=== PATIENT | female | born 1950 | race Caucasian/White ===

== ENCOUNTER 2016-08-18 09:01 | Inpatient (IN) | payer MEDICAID ==
[2016-08-18] MEDS ORDERED: FUROSEMIDE 10 MG/ML VIAL IV ONE ×2 (09:09→09:44)
[2016-08-18] MEDS ORDERED: FUROSEMIDE 10 MG/ML VIAL ONE (09:13)
--- OUTSIDE RECORDS SUMMARY | 2016-08-18 09:24 | XMS REPORT | Continuity of Care Document ---
:1950 Author Organization [facility] ([facility]) Address [address] [place] [address] Phone [phone] Care Team Providers Name Role Phone LidadelioIrina mederoslexis Primary Care Provider [phone] Source Comments This disclosure is being made pursuant to the Care Everywhere program, applicable federal and state laws, and may not contain all informaitonavailable regarding this patient.[facility] ([facility]) Active Allergies and Adverse Reactions Allergen Noted Date Severity Reactions Comments Amoxicillin 04/10/2016 Nausea & Vomiting Penicillin 01/22/2016 Urticaria (Hives) Current Medications Prescription Sig. Disp. Refills Start End Date Status Date albuterol 90 Use 2 Puffs by Active mcg/Actuation inhalation every 6 inhaler hours as needed. atorvastatin 20 mg Take 20 mg by Active tablet mouth every evening. clopidogrel 75 mg Take 75 mg by Active tablet mouth daily. Last dose of plavix 07/16 levothyroxine 75 Take 75 mcg by Active mcg tablet mouth every morning before breakfast. albuterol 2 mg Take 2 mg by mouth Active tablet 3 times daily. acetaminophen 325 Take 325 mg by Active mg tablet mouth every 4 hours as needed. docusate 100 mg Take 100 mg by Active capsule mouth 2 times daily as needed. amiodarone 200 mg Take 2 tablets 120 tablet 1 Active tablet (400 mg) twice 7 daily x 10 days, then take 1 tablet (200 mg) daily thereafter. digoxin 125 mcg Take 1/2 tablet 15 tablet 1 Active tablet (62.5 mcg total) 7 by mouth daily. furosemide 40 mg Take 1 tablet (40 60 tablet 1 Active tablet mg total) by mouth 7 2 times daily. HYDROcodone-acetami Take 1 tablet by 60 tablet 0 Active nophen 5-325 mg per mouth every 6 7 tablet hours as needed for pain. metoPROLol tartrate Take 1/4 tablet 60 tablet 1 Active 25 mg tablet (6.25 mg total) by 7 mouth every 12 hours. sennosides 8.6 mg Take 1 tablet (8.6 60 tablet 1 Active tablet mg total) by mouth 7 2 times daily as needed. sildenafil 20 mg Take 1/4 tablet (5 45 tablet 3 Active tablet mg total) by mouth 7 3 times daily. ALPRAZolam 0.25 mg Take 1 tablet 60 tablet 0 Active tablet (0.25 mg total) by 7 mouth 2 times daily as needed. warfarin 2 mg Take 1 tablet (2 30 tablet 1 Active tablet mg total) by mouth 7 daily. INV clopidogrel 75 Active mg or placebo 7 (POINT STUDY) tablet ALPRAZolam 0.25 mg Active tablet 7 levothyroxine Active (TIROSINT) 75 mcg 7 capsule enoxaparin Inject 120 mg 4 mL 0 Active (LOVENOX) 120 subcutaneously 7 mg/0.8 mL injection daily. Your first syringe injection will be 08/30/2016 and your last injection will be 09/03/2016. aspirin 325 mg Take 325 mg by 08/03/19 Discontinued tablet mouth daily. 17 atenolol 25 mg Take 25 mg by 08/03/19 Discontinued tablet mouth daily. 17 furosemide 40 mg Take 80 mg by 08/03/19 Discontinued tablet mouth daily. 17 cyclobenzaprine 5 Take 5 mg by mouth 08/03/19 Discontinued mg tablet 3 times daily as 17 needed. potassium chloride Take 10 mEq by 08/03/19 Discontinued 10 mEq XR tablet mouth daily. 17 ALPRAZolam 0.25 mg Take 0.25 mg by 08/03/19 Discontinued tablet mouth 3 times 17 daily. lisinopril 40 mg Take 40 mg by 08/03/19 Discontinued tablet mouth daily. 17 sildenafil 20 mg Take 1/2 tablet 45 tablet 3 08/03/19 Discontinued tablet (10 mg total) by 7 17 mouth 3 times daily. enoxaparin Inject 120 mg 4 mL 0 08/16/19 Discontinued (LOVENOX) 120 subcutaneously 7 17 mg/0.8 mL injection daily. Your last syringe injection will be 09/03/2016. Active Problems Patient Care Coordination Note This is a patient with significant moderate to severe MR, tricuspid regurgitation, ischemic cardiomyopathy, and asymptomatic carotid stenosis who underwent R CEA complicated by post-op hematoma. She is doing exceptionally well this morning, and is stable for discharge to home on dual anti-platelet therapy. She complained of some shoulder pain this morning, but cardiac workup was negative, and e reports that it is identical to long-standing known rotator cuff pain. She shows no neurologic changes off pressors while amublating around the unit Problem Noted Date S/P MVR (mitral valve replacement) 08/02/2016 Overview: 07/22/16 1. Coronary artery bypass grafting x 1 with SVG to PDA. 2. Mitral valve replacement with 29 Epic tissue valve. 3. Tricuspid valve repair with 28 tricuspid Physio ring. 4. Endoscopic saphenous vein harvest of the left great saphenous vein. S/P CABG x 1 08/02/2016 Overview: 07/22/16 1. Coronary artery bypass grafting x 1 with SVG to PDA. 2. Mitral valve replacement with 29 Epic tissue valve. 3. Tricuspid valve repair with 28 tricuspid Physio ring. 4. Endoscopic saphenous vein harvest of the left great saphenous vein. Postoperative pain 08/02/2016 Overview: Lortab prn Acute combined systolic and diastolic congestive heart failure 08/02/2016 Overview: - OR 07/22/16; RENAN intraoperatively showed significant RV and LV dysfunction. LV EF estimated to be around 35% with multiple regions of akinesis, including apex , septum, and inferior wall. Along with e vidence of pulmonary hypertension and right heart strain. 07/23: Remained intubated overnight due to high pressor requirements. Weaned off NE, and decreased vasopressin. CI index improved. 07/24: Extubated yesterday afternoon and had increasing PA pressures through the day to max of systolic PA75. Dobutamine was decreased during the day and restarted at night for low cardiac index 1.98. P t continues to have high ionotrope requirements. Bedside echo shows hypokinetic LV. Pt received 1uPRBC for Hgb 6.9 Hematoma complicating a procedure 04/11/2016 Last Assessment & Plan: -s/p surgical decompression; doing fine now Hypomagnesemia 04/11/2016 Overview: Monitor and replace as indicated Carotid artery stenosis, asymptomatic 04/10/2016 Last Assessment & Plan: -s/p CEA with need for take-back due to bleeding -normotensive BP goals -has significant stenosis bilaterally, so reliant on collaterals to a large degree Acute blood loss anemia 04/10/2016 Overview: 07/23: Low cardiac index 1.98. Pt continues to have high ionotrope requirements. Bedside echo shows hypokinetic LV. Pt received 1uPRBC for Hgb 6.9 H/H has been followed closely. No additional RBCs transfusions required; managing with diuresis H/H at discharge was 8.3 and 26% The patient has tolerates room air; good oxygen saturations Last Assessment & Plan: -no current indication for transfusion Hyperkalemia 04/10/2016 Last Assessment & Plan: -resolved Hyponatremia 04/10/2016 Overview: Labs showing hyponatremia with Sodium 124. The patient has been diuresed aggressively with some improvement. She has had daily BMP Last Assessment & Plan: -chronic; stable Discharge planning issues 04/10/2016 Last Assessment & Plan: -full code -familhy updated at bedside -to home today Mitral regurgitation 03/14/2016 Overview: 07/22/16 1. Coronary artery bypass grafting x 1 with SVG to PDA. 2. Mitral valve replacement with 29 Epic tissue valve. 3. Tricuspid valve repair with 28 tricuspid Physio ring. 4. Endoscopic saphenous vein harvest of the left great saphenous vein. Last Assessment & Plan: -hemodynamic principles include keeping heart relatively fast and afterload low (eg, theoretically phenylephrine is not he best pressor agent for her, but we are limited by protocol what we can run pe ripherally), although not clear that regurgitaiton is truly severe. Being evaluated for possible valve replacement Tricuspid regurgitation 03/14/2016 Overview: 07/22/16 1. Coronary artery bypass grafting x 1 with SVG to PDA. 2. Mitral valve replacement with 29 Epic tissue valve. 3. Tricuspid valve repair with 28 tricuspid Physio ring. 4. Endoscopic saphenous vein harvest of the left great saphenous vein. CAD (coronary artery disease) 03/14/2016 Overview: 07/22/16 1. Coronary artery bypass grafting x 1 with SVG to PDA. 2. Mitral valve replacement with 29 Epic tissue valve. 3. Tricuspid valve repair with 28 tricuspid Physio ring. 4. Endoscopic saphenous vein harvest of the left great saphenous vein. Last Assessment & Plan: -ASA + plavix Hypothyroidism 03/14/2016 Overview: Endocrine following; restarted Synthroid TSH and free T4 were checked and adjustments were made Plan to recheck as outpatient in 1-2 months Last Assessment & Plan: -continue home levothyroxine Hypertension 03/14/2016 Overview: Monitoring Last Assessment & Plan: -hold home antihypertensives acutely while shooting for adequate cerebral perfusion. -overall goal with her MR is relatively fast heart rate with low afterload Hyperlipidemia 03/14/2016 Overview: Restarted statin Last Assessment & Plan: -continue home statin Shortness of breath 03/14/2016 PVD (peripheral vascular disease) 03/14/2016 GERD (gastroesophageal reflux disease) 03/14/2016 Overview: Restarted PPI Last Assessment & Plan: -no meds at home; does not need a PPI here Renal insufficiency 03/14/2016 Last Assessment & Plan: -stable. NTD acutely Pulmonary hypertension 03/14/2016 Overview: 07/23: Remained intubated overnight due to high pressor requirements. Weaned off NE, and decreased vasopressin. CI index improved. 07/24: Extubated yesterday afternoon and had increasing PA pressures through the day to max of systolic PA75. Dobutamine was decreased during the day and restarted at night for low cardiac index 1.98. P t continues to have high ionotrope requirements. Bedside echo shows hypokinetic LV. Pt received 1uPRBC for Hgb 6.9 - Still on NC. PA pressures in mid 40 with epo. Wean epo to off. Started sildenafil and increased to 10 -Still on epi, vaso, milrinone . Continue to wean vaso. Will leave inotropes on because of poor function. Still being AV paced at 110. On Vaso. Start midodrine and wean vaso. Continue epi and milrin one. If she tolerats being off epo, can start milrinone wean tomorrow - On lasix infusion. Diuresing well.Goal -1000 - 2000 mlml -Started digoxin for positive inotropy.Dig level 0.8 -Follow lactate, Svo2 and cardiac indices Last Assessment & Plan: -NTD acutely CHF (congestive heart failure) 03/14/2016 Last Assessment & Plan: -most recent EF by echo ~50%, but inpatient showed a decrease again to 33% while on phenylephrine. Unclear whether either recent echo misestimated EF because of her MR (eg, over-estimated EF with greater degree of MR) Former tobacco use 03/14/2016 Resolved Problems Problem Noted Date Resolved Date Lactic acidosis 04/10/2016 04/12/2016 Last Assessment & Plan: -likely related to hgih-dose pressors intra-ioperatively. resolved Most Recent Encounters Date Type Specialty Providers Description 09/04/2016 [facility] General Surgery Kareem, Encounter MD Ricky 08/15/2016 [facility], Dx: Wound infection Encounter MD Ricky after surgery, initial encounter 08/15/2016 [facility] Heart [facility], Chief Comp: Patient Encounter MD Ricky Reported Reason For Visit 08/15/2016 [facility] Heart [facility], Chief Comp: Patient Encounter MD Ricky Reported Reason For Visit 08/15/2016 Office Visit Srg Vascular [facility], Dx: Wound infection MD Ricky after surgery, initial encounter (Primary Dx) 08/15/2016 Ancillary Orders [facility] Vascular Barb, Dx: Wound infection Marques Almazan DDS after surgery, initial encounter (Primary Dx) 08/02/2016 Pharmacy Visit 08/02/2016 Telephone [place], Chief Comp: Marco Byrd CPhT Prior Authorization 08/01/2016 [facility] Neurology Jamaica Gonzalez Chief Comp: Patient Encounter MD Sherman Reported Reason For Visit 08/01/2016 Ophth Exam Ophthalmology - Loyd Soler MD 07/22/2016 [facility] [place], Chief Comp: Patient Encounter MD Shannon Reported Reason For Visit 07/22/2016 Surgery General Surgery [place], MITRAL and TRICUSPID MD Shannon VALVE REPLACEMENT REPAIR 07/19/2016 [facility] [place], Chief Comp: Patient Encounter MD Shannon Reported Reason For Visit 07/19/2016 [facility] Cardiology Ramiro Martinez Chief Comp: Patient Encounter MD Richard Reported Reason For Visit 07/19/2016 Orders/Notes Heart and Vascular Shannon Live MD 07/09/2016 Office Visit [facility] [place], Dx: Mitral valve MD Shannon disorder 07/09/2016 [facility] Anesthesiology Default, Other Dx: Hematoma Encounter Billg - Defo complicating a [place], procedure (Primary MD Shannon Dx) 07/09/2016 [facility] Heart and Vascular Jeni, Chief Comp: Patient Encounter MD Casi Reported Reason For Visit 07/09/2016 [facility] Jeni, Dx: Rheumatic mitral Encounter MD Casi regurgitation 07/09/2016 [facility] Heart [facility] Jeni, Dx: Rheumatic mitral Encounter MD Casi regurgitation 07/09/2016 [facility] Heart and Vascular Default, Other Chief Comp: Patient Encounter Billg - Defo Reported Reason For Kareem, Visit MD Ricky 07/09/2016 Office Visit Sr Vascular Kareem, Dx: 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 (Primary Dx) 07/05/2016 Orders/Notes Heart and Vascular Petra Swann, Dx: Mitral valve APNS disorder (Primary Dx) 07/04/2016 Office Visit Sr [facility] Kareem, Dx: Carotid artery MD Ricky stenosis, asymptomatic, right (Primary Dx) 07/04/2016 [facility] Radiology Joaquín Enciso, Dx: Pre-procedure Encounter lab exam (Primary Dx) 07/04/2016 Office Visit Pathology Kareem, Dx: Pre-procedure MD Ricky lab exam [facility] 06/20/2016 [facility], Chief Comp: Patient Encounter MD Ricky Reported Reason For Visit 06/20/2016 [facility] Heart [facility] Vascular Kareem, Dx: Carotid Encounter MD Ricky stenosis, bilateral 06/20/2016 Office Visit [facility]ascular Kareem, Dx: Stenosis of MD Ricky right carotid artery (Primary Dx) 06/07/2016 Office Visit [facility] Dx: Coronary artery MD Shannon disease involving igiugig coronary artery of igiugig heart without angina pectoris (Primary Dx) 06/06/2016 Office Visit Heart and V[facility] [place], Chief Comp: Patient MD Shannon Reported Reason For Visit Social History Tobacco Use Types Packs/Day Years Used Date Former Smoker Quit: 10/06/2015 Smokeless Tobacco: Never Used Tobacco Cessation:Counseling Given: Yes Comments: Alcohol Use Drinks/Week oz/Week Comments No Last Filed Vital Signs Vital Sign Reading Time Taken Blood Pressure 146/70 08/15/2016 10:44 AM CDT Pulse 62 08/15/2016 10:44 AM CDT Temperature 35.8 C (96.4 F) 08/15/2016 10:42 AM CDT Respiratory Rate 18 08/02/2016 3:43 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 [employer] Height 1.6 m (5' 2.99") 07/22/2016 6:12 AM 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 [employer] Weight 77.1 kg (169 lb 15.6 oz) 08/15/2016 10:42 AM CDT Body Mass Index 30.12 08/15/2016 10:42 AM CDT Oxygen Saturation 100% 08/02/2016 3:08 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 [employer] Plan of Care Date Type Specialty Providers Description 09/04/2016 Surgery General Surgery Ricky Serna, Right Neck wound exploration; Possible [address] [place] [address] Reconstruction [phone] (Fax) 09/06/2016 Appointment Heart and Vascular Default, Other Chief Comp: Patient Billg - Defo Reported Reason For [address] [place] [address] [phone] (Fax) 09/06/2016 Appointment Heart and Vascular Default, Other Billg - Defo [address] [place] [address] [phone] (Fax) Chief Comp: Patient Shannon Live MD [address] [place] [address] [phone] (Fax) Reported Reason For Visit 11/07/2016 Appointment Srg Vascular Ricky Serna, Chief Comp: Patient Reported Reason For [address] [place] [address] [phone] (Fax) Health Maintenance Due Date Last Done Comments HCV Screening 1950 Hepatitis B Vaccine (1 of 3 - Primary 1950 Series) Tdap Vaccine 01/06/1963 Td Vaccine 01/06/1970 Pneumococcal Vaccine (1 of 1 - PPSV23) 01/06/1971 Cervical Cancer Screening 01/06/1982 Mammogram 1992 Colonoscopy 01/06/2002 Zoster Vaccine 2012 Influenza Vaccine: Seasonal (#1) 12/25/2015 Lipid Disorder Screening 07/09/2021 07/09/2016, 03/14/2016 Procedures from Last 3 Months Procedure Name Priority Date/Time Associated Diagnosis Comments ABSTRACTED BY Routine 07/25/2016 8:08 Mitral valve disorder 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 S/P mitral valve repair S/P tricuspid valve repair TSG OR CASE Routine 07/23/2016 7:44 Rheumatic mitral Results for this 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 [employer] regurgitation procedure are in the results section. 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 Component Value Range [facility] VASC RIGHT CCA PROX PSV 112 cm/sec [facility] VASC RIGHT CCA PROX PEDV 21 cm/sec [facility] VASC RIGHT CCA MID PSV 89 cm/sec [facility] VASC RIGHT CCA MID PEDV 25 cm/sec [facility] VASC RIGHT CCA DIST PSV 145 cm/sec [facility] VASC RIGHT CCA DIST PEDV 30 cm/sec [facility] VASC RIGHT ICA PROX PSV 698 cm/sec [facility] VASC RIGHT ICA PROX PEDV 264 cm/sec [facility] VASC RIGHT ICA DIST PSV 115 cm/sec [facility] VASC RIGHT ICA DIST PEDV 33 cm/sec [facility] VASC RIGHT ECA PSV 241 cm/sec [facility] VASC RIGHT ECA PEDV 28 cm/sec [facility] VASC RIGHT VERTEBRAL PSV 170 cm/sec [facility] VASC RIGHT VERTEBRAL PEDV 39 cm/sec [facility] VASC RIGHT ICA/CCA 6.23 CHEST- PA& LATERAL (08/02/2016 1:23 PM) Impressions Findings/impression: Normal cardiomediastinal silhouette and pulmonary vasculature. No pulmonary edema. Mild basilar atelectasis is improved from yesterday's exam. There is a trace left-sided pleural effusion. Otherwise, lungs are clear. Stable postsurgical changes of CABG. 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 No pulmonary edema. Mild basilar atelectasis is improved from yesterday's exam. There is a trace left-sided pleural effusion. Otherwise, lungs are clear. Stable postsurgical changes of CABG. BLOOD GLUCOSE, BEDSIDE (08/02/2016 12:25 PM)Only the most recent of76 resultswithin the time period is included. Component Value Range Glucose, Accu-Chek 131(H) 65-99 mg/dL Specimen Blood, capillary PT/INR (PROTHROMBIN TIME/INR) VENOUS (08/02/2016 6:58 AM)Only the most recent of13 resultswithin the time period is included. Component Value Range PT (Prothrombin Time) 21(H) 9-12 secs INR 2.1 <4.0 Specimen Blood MAGNESIUM (08/02/2016 6:58 AM)Only the most recent of21 resultswithin the time period is included. Component Value Range Magnesium 2.1 1.5-2.9 mg/dL Specimen Blood GLUCOSE (08/02/2016 6:58 AM)Only the most recent of3 resultswithin the time period is included. Component Value Range Glucose 109(H)Comment: 65-99 mg/dL The Expert Committee on the Diagnosis and Classification of Diabetes has defined impaired fasting glucose as greater than or equal to 100 mg/dL but less than 126 mg/dL.(Diabetes Care 28 (Suppl 1)S41,2005) Specimen Blood CBC (COMPLETE BLOOD COUNT) (08/02/2016 6:58 AM)Only the most recent of8 resultswithin the time period is included. Component Value Range WBC Count 6.6 3.7-10.5 K/MM3 RBC Count 2.84(L) 4.00-5.20 M/MM3 Hemoglobin 8.3(L) 11.9-15.5 g/dL Hematocrit 26(L) 35-47 % MCV (Mean Corpuscular Volume) 92 82-99 FL MCH (Mean Corpuscular Hemoglobin) 29 25-35 PG MCHC (Mean Corpuscular Hemoglobin Concentration) 32 32-36 % Platelet Count 293 150-400 K/MM3 MPV (Mean Platelet Volume) 9.3(L) 9.4-12.3 FL RBC Dist Width-STD 56.0(H) 36.4-46.3 FL RBC Distrib Width 17.2(H) 9.0-14.5 % Nucleated RBC 0 /100 WBC Specimen Whole Blood CREATININE (08/02/2016 6:58 AM)Only the most recent of2 resultswithin the time period is included. Component Value Range Creatinine 1.2(H)Comment: 0.5-1.0 mg/dL Creatinine switched to enzymatic method on 10/02/2010.GFR equation switched to IDMS-traceable MDRD equation on 10/02/2010. Calculated GFR values are not valid in clinical settings where serum creatinine is changing. Calculated GFR 45(L) >60 mL/min/1.73 m2 Specimen Blood BLOOD UREA NITROGEN (08/02/2016 6:58 AM)Only the most recent of2 resultswithin the time period is included. Component Value Range BUN 17 10-20 mg/dL Specimen Blood CO2 (08/02/2016 6:58 AM)Only the most recent of2 resultswithin the time period is included. Component Value Range CO2 24 22-29 mEq/L Anion Gap 15 8-18 mEq/L Specimen Blood CHLORIDE (08/02/2016 6:58 AM)Only the most recent of2 resultswithin the time period is included. Component Value Range Chloride 91(L) 95-107 mEq/L Specimen Blood POTASSIUM (08/02/2016 6:58 AM)Only the most recent of2 resultswithin the time period is included. Component Value Range Potassium 4.6 3.5-5.0 mEq/L Specimen Blood SODIUM (08/02/2016 6:58 AM)Only the most recent of2 resultswithin the time period is included. Component Value Range Sodium 130(L) 135-145 mEq/L Specimen Blood CT BRAIN WO CONTRAST (11057) (08/01/2016 6:29 PM) Narrative Procedure: CT BRAIN WO CONTRAST (17068) Indication: Vision changes, evaluate for stroke. Technique: Axial CT of the brain without IV contrast. Sagittal and coronal reformations are also provided for review. Comparison: CTA of the head dated 07/04/2016 Findings: There is no evidence of acute large vascular distribution infarct, mass lesion or hemorrhage. The ventricles, cortical sulci and basal cisterns are symmetric and age appropriate. Normal brainstem and posterior fossa. The scalp and calvarium are unremarkable. Impression No acute intracranial findings. If there is continued concern for acute stroke, MRI is more sensitive. This final report is in agreement with the critical and emergent preliminary findings reported by the residential leasing agent x ray consultant. 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 Technique: Axial CT of the brain without IV contrast. Sagittal and coronal reformations are also provided for review. Comparison: CTA of the head dated 07/04/2016 Findings: There is no evidence of acute large vascular distribution infarct, mass lesion or hemorrhage. The ventricles, cortical sulci and basal cisterns are symmetric and age appropriate. Normal brainstem and posterior fossa. The scalp and calvarium are unremarkable. Impression No acute intracranial findings. If there is continued concern for acute stroke, MRI is more sensitive. This final report is in agreement with the critical and emergent preliminary findings reported by the residential leasing agent x ray consultant. MICROSCOPIC URINALYSIS (08/01/2016 12:24 PM)Only the most recent of2 resultswithin the time period is included. Component Value Range White Blood Cells, Urine 1 0-5 /HPF Red Blood Cells, Urine 4(H) 0-2 /HPF Bacteria, Urine Few(A) /HPF Squamous Epithelial Cells, Urine 129(H) <=10 /LPF Hyaline Cast, Urine 1 <=10 /LPF Mucous-Urine Rare None, Rare Specimen Urine URINALYSIS WITH REFLEX CULTURE (08/01/2016 12:24 PM)Only the most recent of2 resultswithin the time period is included. Component Value Range Color, Urine Yellow Straw, Pale Yellow, Yellow, Clear, None Clarity, Urine Clear Clear pH, Urine 5.0 <9.0 Spec [place], Urine 1.005 1.000-1.030 Glucose, Urine Negative Negative Blood, Urine 1+(A) Negative Ketones, Urine Negative Negative Protein, Urine Negative Negative Urobilinogen, Urine Normal Normal Bilirubin, Urine Negative Negative Leukocyte Esterase, Urine Negative Negative Nitrite, Urine Negative Negative Specimen Urine URINALYSIS WITH REFLEXED CULTURE AND MICROSCOPIC EXAM (08/01/2016 12:24 PM)Only the most recent of2 resultswithin the time period is included. Specimen Culture - Urine, Midstream clean catch Narrative The following orders were created for panel order URINALYSIS WITH REFLEXED CULTURE AND MICROSCOPIC EXAM. Procedure Abnormality Status --------- ------ URINALYSIS WITH REFLEX C...[[id number]]AbnormalFinal result MICROSCOPIC URINALYSIS[[id number]] Abnormal Final result URINE CULTURE, REFLEXED[[id number]] Please view results for these tests on the individual orders. POTASSIUM ([facility]ICAL [facility]ARE [facility]) (08/01/2016 10:25 AM)Only the most recent of28 resultswithin the time period is included. Component Value Range Potassium, Whole Blood 4.4Comment: 3.5-5.0 mEq/L Sample run on whole blood.Hemolysis is not measured. Specimen Whole Blood PTT (PARTIAL THROMBOPLASTIN TIME) (08/01/2016 10:25 AM)Only the most recent of11 resultswithin the time period is included. Component Value Range PTT 29 22-31 secs Specimen Blood ECG - EKG 12 LEAD (08/01/2016 7:48 AM)Only the most recent of4 resultswithin the time period is included. Component Value Range ECG SEVERITY - ABNORMAL ECG - VENT. RATE 85 bpm RR 706 ms QRSD INTERVAL 138 ms QT INTERVAL 424 ms QTC INTERVAL 505 ms QRS AXIS 2 degrees T WAVE AXIS 157 degrees REPORT ATRIAL FIBRILLATION [Remains] VENTRICULAR PREMATURE COMPLEX LEFT BUNDLE BRANCH BLOCK [Remains] NO SIGNIFICANT CHANGE Interpreting Physician: LOCO NDIAYE MD CHEST - AP/PA (08/01/2016 4:08 AM)Only the most recent of11 resultswithin the time period is included. Impressions Findings / Impression: Interval removal of Laporte-David catheter. Stable mild prominence of the cardiomediastinal silhouette with normal pulmonary vasculature. No mckenzie pulmonary edema. Mild bibasilar, left greater than right, atelectasis with associated trace pleural effusions. Lungs are otherwise clear. Narrative Procedure: CHEST - AP/PA Technique: Portable AP chest radiograph Comparison: Chest radiograph(s) dated: 07/30/2016. Clinical Indication: Status post CABG, mitral valve repair Procedure Note [place], Incoming Imaging Results - Nica Aug 01, 2016 11:17 AM 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 OPERATOR SINGLE SPINDLE Procedure: CHEST - AP/PA Technique: Portable AP chest radiograph Comparison: Chest radiograph(s) dated: 07/30/2016. Clinical Indication: Status post CABG, mitral valve repair IMPRESSION Findings / Impression: Interval removal of Laporte-David catheter. Stable mild prominence of the cardiomediastinal silhouette with normal pulmonary vasculature. No mckenzie pulmonary edema. Mild bibasilar, left greater than right, atelectasis with associated trace pleural effusions. Lungs are otherwise clear. DIGOXIN DRUG LEVEL (08/01/2016 3:45 AM)Only the most recent of2 resultswithin the time period is included. Component Value Range Digoxin Drug Level 1.08Comment: 0.90-2.00 ng/mL The general therapeutic range for digoxin is 0.5-2.0 ng/mL. However, the optimal therapeutic range for a given patient may differ based on factors such as patient age and indication for therapy. [employer] (ACCF) / [place] [employer] Association (AHA ) 2013 guidelines recommend therapeutic digoxin plasma levels of 0.5-0.9 ng/mL for management of heart failure. For treatme nt of atrial fibrillation, digoxin plasma levels up to 2 ng/mL may be necessary to achieve better ventricular rate control. Digoxin has a narrow therapeutic window, and plasma concentrations greater t [place] 2 ng/mL confer higher risk of adverse effects. Elderly patients are more susceptible to adverse effects and more likely to show toxicity even at plasma levels of 1.4-2.0 ng/mL. Specimen Blood PLATELET COUNT (08/01/2016 3:45 AM)Only the most recent of11 resultswithin the time period is included. Component Value Range Platelet Count 265 150-400 K/MM3 Specimen Whole Blood BASIC METABOLIC PANEL W/ CALCIUM (CHEM 8) (08/01/2016 3:45 AM)Only the most recent of11 resultswithin the time period is included. Component Value Range Sodium 132(L) 135-145 mEq/L Potassium 4.5 3.5-5.0 mEq/L Chloride 91(L) 95-107 mEq/L CO2 23 22-29 mEq/L Anion Gap 18 8-18 mEq/L BUN 17 10-20 mg/dL Creatinine 1.1(H)Comment: 0.5-1.0 mg/dL Creatinine switched to enzymatic method on 10/02/2010.GFR equation switched to IDMS-traceable MDRD equation on 10/02/2010. Calculated GFR values are not valid in clinical settings where serum creatinine is changing. Glucose 113(H)Comment: 65-99 mg/dL The Expert Committee on the Diagnosis and Classification of Diabetes has defined impaired fasting glucose as greater than or equal to 100 mg/dL but less than 126 mg/dL.(Diabetes Care 28 (Suppl 1)S41,2005) Calcium 9.3 8.5-10.5 mg/dL Calculated GFR 50(L) >60 mL/min/1.73 m2 Specimen Blood VENOUS OXYGEN SATURATION ([facility]) (07/31/2016 2:11 PM)Only the most recent of38 resultswithin the time period is included. Component Value Range Venous O2 Saturation 51.7 % Venous Oxyhemoglobin 50.1 % Specimen Whole Blood HEMOGLOBIN& CALCULATED HEMATOCRIT - ([facility]) (07/31/2016 5: 06 AM)Only the most recent of18 resultswithin the time period is included. Component Value Range Hemoglobin - CCL 8.6(L) 11.9-15.5 g/dL Hematocrit (Calc) - CCL 26(L) 35-47 % Specimen Whole Blood GLUCOSE ([facility]) (07/30/2016 12:20 PM)Only the most recent of24 resultswithin the time period is included. Component Value Range Glucose, Whole Blood 121(H) 65-99 mg/dL Specimen Whole Blood ARTERIAL BLOOD GAS ([facility]) (07/30/2016 4:05 AM)Only the most recent of25 resultswithin the time period is included. Component Value Range pH, Arterial 7.48(H) 7.35-7.45 pCO2, Arterial 40 35-45 torr pO2, Arterial 67(L) 80-90 torr Base Excess, Arterial 6(H) -2-2 mEq/L Bicarbonate, Arterial 30(H) 22-26 mEq/L Total CO2, Arterial 31 24-32 mEq/L Temperature, Arterial 37.0 Degrees C Specimen Whole Blood LACTIC ACID, WHOLE BLOOD ([facility]) (07/30/2016 4:05 AM)Only the most recent of16 resultswithin the time period is included. Component Value Range Lactic Acid, Whole Blood 0.5Comment: 0.5-2.0 mEq/L Glycolate, the principle toxic metabolite of ethylene glycol, can cause artifactual elevation of measured lactate. Specimen Whole Blood OSMOLALITY-URINE (07/29/2016 3:15 PM) Component Value Range Osmolality-Urine 309(L) 350-1050 mOsm/k Specimen Urine OSMOLALITY, PLASMA (07/29/2016 1:04 PM) Component Value Range Osmolality, Plasma 266(L) 275-295 mOsm/kg Specimen Blood CALCIUM (07/29/2016 4:12 AM)Only the most recent of4 resultswithin the time period is included. Component Value Range Calcium 8.8 8.5-10.5 mg/dL Specimen Blood PHOSPHORUS (07/29/2016 4:12 AM)Only the most recent of7 resultswithin the time period is included. Component Value Range Phosphorus 2.5Comment:New reference range installed 03/07/15. 2.5-4.5 mg/dL Specimen Blood THYROXINE - FREE (07/28/2016 4:06 AM) Component Value Range Free T4 (Thyroxine) 0.41(L) 0.80-1.80 ng/dL Specimen Blood THYROID STIMULATING HORMONE (TSH), WITH REFLEX FREE T-4 (07/28/2016 4:06 AM) Component Value Range TSH, Reflex 5.43(H) 0.27-4.20 IU/mL Specimen Blood CALCIUM, IONIZED ([facility]) (07/27/2016 4:16 AM)Only the most recent of2 resultswithin the time period is included. Component Value Range Ionized Calcium 4.5 3.8-5.2 mg/dL Specimen Whole Blood CENTRAL LINE (07/25/2016 8:08 PM) Ignacio Diaz MD 07/25/20168:08 PM Central Line Procedure Note Date of Procedure: 07/25/2016 CENTRAL LINE Date/Time: 07/25/2016 4:58 PM Consent obtained: Yes (verbal) Immediately prior to procedure a time out was called to verify the correct patient, procedure, equipment, manager client support and site/side marked as required Anesthesia (see MAR for exact dosages): Anesthesia method: local infiltration Local anesthetic:Lidocaine 1% w/o epi Description of Procedure: The patient was positioned Trendelenburg, and the patient was prepped and draped in usual sterile fashion with chlorhexidine and full body drape. After assuring adequate anesthesia, the Seldinger technique was used to enter the right internal jugular vein, dilate the tract, advance the single lumen Central Line (Cordis, 10 cm 8.5 fr w single sideport) catheter to 10 cm, and fixed in place. A sterile dressing was applied. Ultrasound: The procedure was completed with ultrasound guidance. Imaging was not obtained and stored. Additional Details: PAC floated into PA, not wedged, at 43 cm and locked there Post-procedure details: The patient did tolerate the procedure. The patient did not have complications. Evelin Alaniz MD I was present for the entire procedure. Ignacio Hernandez MD RED BLOOD CELLS DISPENSE FROM BLOOD BANK (07/23/2016 8:27 PM)Only the most recent of4 resultswithin the time period is included. Component Value Range Blood Coding System [id number] Blood Product Volume 325 Blood Product ABORH A Neg Blood Unit Number [id number] BLOOD DISPENSE STATUS ISS Blood Product Type Red Blood Cells Blood Product Code [id number] TSG OR CASE (07/23/2016 7:44 PM) Procedure Note FriJul 22, 2016 12:00 AM 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 OPERATOR SINGLE SPINDLE Date: 07/22/2016 LOCATION: Main OR room 7. PREOPERATIVE DIAGNOSIS: 1. Ischemic cardiomyopathy with ejection fraction of 30%. 2. Severe pulmonary hypertension with decreased right ventricular function. 3. Severe mitral regurgitation. 4. Severe tricuspid regurgitation. 5. Coronary artery disease with occluded right coronary artery and a previous stent in the left circumflex vessel. POSTOPERATIVE DIAGNOSIS: Same. PROCEDURE PERFORMED: 1. Coronary artery bypass grafting x 1 with SVG to PDA. 2. Mitral valve replacement with 29 Epic tissue valve. 3. Tricuspid valve repair with 28 tricuspid Physio ring. 4. Endoscopic saphenous vein harvest of the left great saphenous vein. STAFF SURGEON: Shannon Live MD FELLOW SURGEON: Drew Humphrey M.D. PIPE AND TANK FABRICATOR: Elier Madrigal RN. INDICATIONS: Manuela Camarena is a 66-year-old female patient with peripheral vascular disease and was found to have coronary artery disease, as well. She had a stent in the left OM and circumflex vessel. She had an o ccluded RCA, was also found to have a depressed ejection fraction at 30% with severe MR and depressed RV function with severe TR as well and severe pulmonary hypertension. She was indicated for the above procedure. FINDINGS: The patient had an EF of 25-30% on TE intraoperatively and decreased RV function as well with severe MR and severe TR. Her PDA target was 1.5 mm in diameter. It was intramuscular, as well. The saphenous vein graft was of good quality and caliber and the flow in the cardioplegia line was 90 mL with good Medistim flow s at the end of the procedure. Her mitral valve had ischemic changes with restricted and P3 area and also had some thickened and restricted chords in the A1 and P1 area. and there were 2 jets involve d. We thought that the valve had early rheumatic changes and with the ischemic MR, we elected to replace the valve. The tricuspid valve had severe TR and with a valvuloplasty ring, we were able to g et that down to mild TR at the end of the procedure. Coming off bypass, the patient had depressed LV and RV function and needed some inotropic support. DESCRIPTION OF THE PROCEDURE: The patient was correctly identified, and after informed consent was obtained, she was taken to the operating room in supine position. General anesthesia was induced. The patient was intubated. Bekah es were placed by Anesthesia. Neck, chest, abdomen, and lower extremities were prepped and draped in the usual sterile fashion. After performing a time- out, the procedure began. Antibiotics were given. Median sternotomy was performed. At the same time, endoscopic vein harvest was achieved of the left great saphenous vein. Pericardium was opened. Heparin was given to an AC T of 480 and pericardial cradle was created. We cannulated the ascending aorta , cannulated the superior vena cava, the inferior vena cava. We placed an antegrade cardioplegia cannula with the root v ent and we initiated cardiopulmonary bypass. We dissected the SVC and the IVC circumferentially. We placed vessel loops surrounding them. We developed Sondergaard groove as well. We crossclamped th e ascending aorta, arrested the heart with initial dose of antegrade cardioplegia and every 20 minutes thereafter. We cooled the body temperature down to 32 degrees and we used cold saline for topica l hypothermia. We had excellent arrest throughout the case. We also vented the heart through the left atrium while giving cardioplegia initially. Attention was then turned to the right coronary target. The PLV branches were very small. The PDA target was not identified initially; however, we saw it creeping underneath the muscle going into the LV apex, so we opened the muscle area. We identified the PDA. It was approximately 1.5 mm in diameter and the saphenous vein graft was sewn to the PDA using 7-0 Prolene suture in the standard ninfa r. We used the vein graft to give cardioplegia every 20 minutes with the antegrade dose, as well. The cardioplegia line flow was 90 mL and the proximal anastomosis was performed later using 6-0 Prol shannan suture onto the ascending aorta after finishing the valve procedure. Attention was then turned to opening the left atrium. The left atrium was opened widely and the mitral valve was identified. 2-0 Prolene sutures were placed in the posterior and anterior annulus. We inspected the valve. After inspecting the valve and testing it, there 2 regurgitant jets at the A1, P1 area and at the A3, P3 area where the P3 leaflet was very restricted, also had thickened cord a s well as the P2 area, so the valve looked like it had rheumatic changes and the ischemic changes from restriction of the P3 area, we elected to replace the valve. We spared the anterior and the post erior cords, most of them. We placed our annular stitches circumferentially. We resected the anterior and the posterior leaflets. We sized the valve to a 21 Epic tissue valve and the valve was seat ed nicely into the annulus and all the sutures were tied using the Cor-Knot device. We placed an LV vent through the superior pulmonary vein through the mitral valve and closed the left atrium in 2 l santacruz. At that point, attention was then turned to the right atrium. The right atrium was opened up after occluding the SVC and IVC with a tourniquet. The tricuspid valve was inspected, avoiding the conduction system. We placed our circumferential annular stitches an d we used a 28 physio tricuspid ring. This was seated onto the annulus and all the sutures were tied. We tested the tricuspid valve; it had only mild leakage. The right atrium was closed in 2 layers afterwards. The tourniquets were released. We finished the proximal anastomosis and the patient was placed in Trendelenburg position. The root vent was initiated as well as the LV vent. The crossclamp was removed. The heart was de-aired. The heart regained sinus rhythm. We started ventilation, warmed the patient back up, and wea sarah off cardiopulmonary bypass. We had to use inotropic support as the RV and LV function was depressed. We also placed A wires to AV pace the patient. We were able to come off bypass. Cardiopulmo nary bypass time was 191 minutes. Crossclamp time was 149 minutes. We decannulated the IVC, the SVC, the LV vent and the antegrade vent. We gave all the blood back to the patient through the arteri al cannula, gave protamine, achieved hemostasis, then decannulated the arterial cannula. We placed 2 mediastinal drains and 1 right-sided chest tube. Attention was then turned to closure. The nicholas otomy was closed with #7 wires. The incision was closed in layers. I was present for the entire procedure. Dr. Humphrey assisted throughout the procedure. Elier Madrigal harvested the vein endoscopically and assisted throughout the procedure, as there was no qualifiedresident available. Shannon Live MD Dictated Date/Time: 07/23/2016 16:43:38 Trawl Net Maker Initials: NTS Voice Job ID : [id number] PLASMA DISPENSE FROM BLOOD BANK (07/22/2016 5:08 PM)Only the most recent of4 resultswithin the time period is included. Component Value Range Blood Coding System [id number] Blood Product Volume 309 Blood Product ABORH A Pos Blood Unit Number [id number] BLOOD DISPENSE STATUS ISS Blood Product Type FFP Blood Product Code [id number] Blood Coding System [id number] Blood Product Volume 306 Blood Product ABORH A Pos Blood Unit Number [id number] BLOOD DISPENSE STATUS RET Blood Product Type FFP Blood Product Code [id number] FIBRINOGEN (07/22/2016 5:01 PM)Only the most recent of5 resultswithin the time period is included. Component Value Range Fibrinogen 273 180-400 mg/dL Specimen Blood CRYOPRECIPITATE DISPENSE FROM BLOOD BANK (07/22/2016 3:40 PM) Component Value Range Blood Coding System [id number] Blood Product Volume 96 Blood Product ABORH A Pos Blood Unit Number [id number] BLOOD DISPENSE STATUS ISS Blood Product Type Cryoprecipitate Blood Product Code [id number] PLATELETS DISPENSE FROM BLOOD BANK (07/22/2016 3:29 PM)Only the most recent of2 resultswithin the time period is included. Component Value Range Blood Coding System [id number] Blood Product Volume 258 Blood Product ABORH AB Neg Blood Unit Number [id number] BLOOD DISPENSE STATUS ISS Blood Product Type Platelets Blood Product Code [id number] THROMBOELASTOGRAPH (TEG) (07/22/2016 2:37 PM)Only the most recent of2 resultswithin the time period is included. Component Value Range Initial Clot Formation 6.3 5.0-10.0 mins Kinetics 1.8 1.0-3.0 mins Clot Angle 61.8 53.0-72.0 Degrees Maximum Amplitude 59.0 50.0-70.0 mm LY30 0.0 0.0-8.0 % Coagulation Index -0.6 -3.0-3.0 Clot Strength G 7.2 4.5-11.0 Kd/cm2 Specimen Blood SURGICAL PATHOLOGY EXAM (07/22/2016 11:57 AM) Component Value Range Case Report Surgical Pathology Case: [id number] Authorizing Provider:Shannon Live MD Collected: 07/22/2016 11:57 AM Ordering Location: Main OR Received:07/22/2016 12:05 PM Pathologist: Jame Patricia MD Specimen:Heart Valve Tissue, mitral valve leaflets Diagnosis Cardiac valve, mitral valve tissue, removal: Calcific valvulopathy (gross only). I have personally reviewed this case and edited the report as necessary. Gross Description Received in formalin in a container labeled with Manuela Rush , hospital number, and "mitral valve leaflets" are four white-yellow, thin segments of soft tissue grossly consistent with cardiac valve leaf lets.Each piece contains no vegetations or calcifications.This specimen is for gross examination only.No tissue is submitted. BNS/cja Microscopic Description Gross only Specimen Surgical Pathology - Heart Valve Tissue HEPARINASE THROMBOELASTOGRAPH (07/22/2016 10:57 AM) Component Value Range Hep Initial Clot Formation 7.1 5.0-10.0 mins Hep Kinetics 2.0 1.0-3.0 mins Hep Angle 63.1 53.0-72.0 Degrees Hep Maximum Amplitude 45.3(L) 50.0-70.0 mm Hep LY30 32.8(H) 0.0-8.0 % Hep Coagulation Index -2.8 -3.0-3.0 Hep Clot Strength G 4.1(L) 4.5-11.0 Kd/cm2 Specimen Blood ECHO ADULT - INTRAOPERATIVE ECHOCARDIOGRAPHIES TRANSESOPHAGEAL (07/22/2016 8: 17 AM) Component Value Range Interpretation Summary TRANSESOPHAGEAL ECHOCARDIOGRAM S/P MV Replacement, TV Repair, CABG Severely decreased biventricular function following separation from bypass. Prior to leaving OR, LVEF improved to 30% with mild improvement in inferoseptal and inferior wall hypokinesis. RV function improved to baseline as well. No perivalve leak in mitral valve. Mean gradient 2 mmHg. Mild to moderate TR. No aortic dissection. Descending aortic disease per baseline. Remainder of exam unchanged. Baseline exam detailed below Left Ventricle (LV) Normal left ventricular size. LV Ejection Fraction=35% (based on visual estimate). Abnormal LV diastolic function. Severely hypokinetic inferoseptal and inferior wall. Right Ventricle (RV) Enlarged right ventricle. Moderately decreased right ventricular systolic function Left and Right Atria (LA, RA) LA chamber size: enlarged. Severely enlarged right atrial size. No interatrial shunt visualized by color doppler Mitral Valve (MV) Mitral Valve leaflets do not appear thickened. Restricted anterior and posterior MV leaflet mobility Severe mitral regurgitation by color Doppler. Central jet with restriction of both anterior and posterior leaflets. Reversal of systolic flow in pulmonary veins. Tricuspid Valve (TV) Probably normal tricuspid valve morphology Tricuspid annulus 3.3 cm No tricuspid valve prolapse. Moderate Tricuspid regurgitation by Doppler. Aortic Valve (AoV) Trileaflet AoV without calcification or restricted leaflet mobility Trace aortic insufficiency Pulmonic Valve (PV) Trace pulmonic valve insufficiency by doppler. Aorta and Pulmonary Artery (Ao, PA) The aortic root is normal size. The ascending aorta is normal size Bravo Grade IV atherosclerotic disease in descending aorta Low Range of LVEF 35 High Range of LVEF 35 Reason For Study Intraoperative RENAN for MV Replacement, TV Repair, and CABG Direct Service Professional Matteo An Interpreting Physician Matteo An MD electronically signed on 2016-07-23 16:53:36.97 TYPE AND SCREEN (BLOOD TYPE(ABORH) AND RBC ANTIBODY SCREEN) (07/22/2016 6:26 AM )Only the most recent of2 resultswithin the time period is included. Component Value Range ABORH A Negative Specimen Expiration Date 2016-07-25 Antibody Screen Negative Specimen Blood ECHO ADULT - STORE ECHOCARDIOGRAM ONLY (07/19/2016 11:14 AM) Component Value Range Patient Height (cm) 160 cm Patient Weight (kg) 72.1 kg BSA (meters^2) 1.8 m^2 Procedures ([id number]) RVDd 3.5 cm IVSd 1.2 cm LVIDd 4.2 cm LVIDs 3.4 cm LVPWd 1.4 cm IVS/LVPW 0.91 % IVS Thick 31.0 % % LVPW thick -18.6 % LA dimension 4.0 cm asc Aorta Diam 3.3 cm LVOT diam 1.9 cm LVOT area 2.8 cm^2 LVAd ap4 28.9 cm^2 EF(MOD-sp4) 50.2 % MV E max chiqui 139.0 cm/sec MV A max chiqui 77.1 cm/sec MV E/A 1.8 MV dec time 0.17 sec Ao V2 max 159.0 cm/sec Ao max PG 10.1 mmHg Ao max PG (full) 8.8 mmHg Ao V2 mean 104.0 cm/sec Ao mean PG 5.0 mmHg Ao V2 VTI 30.2 cm JENNIFER(I,D) 1.1 cm^2 JENNIFER(V,D) 1.0 cm^2 LV V1 max 57.1 cm/sec LV V1 mean 36.6 cm/sec LV V1 VTI 12.1 cm TR Max chiqui 315.5 cm/sec RVSP(TR) 49.9 mmHg Reason For Study EXTERNAL ECHO FOR STORAGE ONLY Interpreting Physician electronically signed on 2016-07-19 12:44:19.05 EXTERNAL CARDIAC CATHETERIZATION - STORE ONLY (07/19/2016 11:14 AM)MRSA/SA PCR ( 07/09/2016 11:18 AM) Component Value Range MRSA by PCR Positive(A) Negative S. AUREUS by PCR Positive(A)Comment:MRSA positive. This result is Negative consistent for the presence of MRSA. Specimen Nasal Swab (MRSA) - Nasal Swab Narrative Test methodology:PCR amplification; Xpert SA Test ([facility]) CHOLESTEROL (07/09/2016 11:16 AM) Component Value Range Cholesterol 147Comment: mg/dL Reference Range: Less than 200 mg/dL - desirable 200 - 240 mg/dL - increased risk Above 240 mg/dL - significant risk Specimen Blood TOTAL PROTEIN (07/09/2016 11:16 AM) Component Value Range Total Protein 8.4(H) 6.0-8.0 g/dL Specimen Blood BILIRUBIN, TOTAL (07/09/2016 11:16 AM) Component Value Range Bilirubin Total 0.4 <=1.2 mg/dL Specimen Blood BILIRUBIN, DIRECT (07/09/2016 11:16 AM) Component Value Range Bilirubin, Direct <0.2 0.0-0.2 mg/dL Specimen Blood ASPARTATE AMINOTRANSFERASE (07/09/2016 11:16 AM) Component Value Range AST 18Comment: 0-32 U/L Adult reference ranges updated on 04/20/13 at 830am Specimen Blood ALKALINE PHOSPHATASE (07/09/2016 11:16 AM) Component Value Range ALP 128(H) 35-104 U/L Specimen Blood ALANINE AMINOTRANSFERASE (07/09/2016 11:16 AM) Component Value Range ALT 14Comment: 0-33 U/L The upper limit of normal for alanine aminotransferase (ALT) reference ranges for adults is controversial with some authorities recommending limit as low as 30 U/L for males and 19 U/L for females. Th ere is increased incidence of subclinical liver disease (e.g., early steatohepatitis) in patients with ALT values in the range of 31-41 U/L for males and 20-33 U/L for females. ALT values should alway s be interpreted in conjunction with clinical history, physical examination findings, and, if applicable, data from other diagnostic tests. Specimen Blood CT ANGIO HEAD& NECK W/WO ([id number], [id number]) (07/04/2016 10:49 AM) Impressions Impression: 1. Postsurgical changes of right carotid bifurcation with a fluid collection and soft tissue thickening lateral to the carotid bifurcation extending to the skin, likely representing residual hematoma/seroma. 2. Critical stenosis of the right internal carotid artery just superior to the carotid bifurcation. 3. Moderate to severe atherosclerotic disease the occlusion of the proximal left internal carotid artery up to the bifurcation and with distal luminal narrowing. 4. Thrombus extending from the left vertebral artery ostium to the C4 vertebral level. Results of the procedure were given to: PERSON CONTACTED:MIKE Suarez DATE: 07/04/2016 TIME CALLED:[phone] PHONE/PAGER:[phone] Narrative Procedure: CT ANGIO HEAD & NECK W/WO ([id number], [id number]) Indication: Draining from right carotid endarterectomy incision Exam: Axial CT angiogram of the neck and [place] after the uneventful administration of 137 mL Isovue-370 IV contrast. Sagittal and coronal reformations were also provided for review. 3D images were created on an independent workstation to better evaluate potential vascular abnormalities. Comparison: 03/28/2016. Findings: - CTA Neck: There is classic aortic branching. Lack of contrast opacification of the left common carotid artery extending from the ostia to the bifurcation. Moderate 50% calcified atherosclerotic disease involving the proximal left internal carotid artery with distal luminal narrowing extending to the intracranial portion, similar to prior exam. Postsurgical changes of right carotid endarterectomy. Chest superior to the bifurcation, there is a critical, greater than 90% stenosis of the right internal carotid artery (6-322). There is a hyperdense collection lateral to be right carotid bifurcation at the site of the endarterectomy which measures 1.6 x 0.7 x 2.6 cm. There is corresponding soft tissue thickening in this region extending to the skin. The vertebral arteries originate from the subclavian arteries. There is normal course and caliber of the right vertebral artery. The left vertebral artery is nonopacified extending from the ostium to the C4 vertebral body. The left vertebral artery is dominant. - CTA Head: Severe luminal narrowing of the intracranial left internal carotid artery. The left vertebral artery demonstrates moderate calcified (less than 50%) atherosclerotic disease. There is no significant stenosis in the anterior, middle or posterior cerebral arteries. No evidence of aneurysm or malformation. 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 Sagittal and coronal reformations were also provided for review. 3D images were created on an independent workstation to better evaluate potential vascular abnormalities. Comparison: 03/28/2016. Findings: - CTA Neck: There is classic aortic branching. Lack of contrast opacification of the left common carotid artery extending from the ostia to the bifurcation. Moderate 50% calcified atherosclerotic disease involving the proximal left internal carotid artery with distal luminal narrowing extending to the intracranial portion, similar to prior exam. Postsurgical changes of right carotid endarterectomy. Chest superior to the bifurcation, there is a critical, greater than 90% stenosis of the right internal carotid artery (6-322). There is a hyperdense collection lateral to be right carotid bifurcation at the site of the endarterectomy which measures 1.6 x 0.7 x 2.6 cm. There is corresponding soft tissue thickening in this region extending to the skin. The vertebral arteries originate from the subclavian arteries. There is normal course and caliber of the right vertebral artery. The left vertebral artery is nonopacified extending from the ostium to the C4 vertebral body. The left vertebral artery is dominant. - CTA Head: Severe luminal narrowing of the intracranial left internal carotid artery. The left vertebral artery demonstrates moderate calcified (less than 50%) atherosclerotic disease. There is no significant stenosis in the anterior, middle or posterior cerebral arteries. No evidence of aneurysm or malformation. IMPRESSION Impression: 1. Postsurgical changes of right carotid bifurcation with a fluid collection and soft tissue thickening lateral to the carotid bifurcation extending to the skin, likely representing residual hematoma/seroma. 2. Critical stenosis of the right internal carotid artery just superior to the carotid bifurcation. 3. Moderate to severe atherosclerotic disease the occlusion of the proximal left internal carotid artery up to the bifurcation and with distal luminal narrowing. 4. Thrombus extending from the left vertebral artery ostium to the C4 vertebral level. Results of the procedure were given to: PERSON CONTACTED: MIKE Suarez DATE: 07/04/2016 TIME CALLED: [phone] PHONE/PAGER: [phone] IRL RADIOLOGY CREATININE, POINT OF CARE (07/04/2016 9:53 AM) Component Value Range IRL Radiology Creatinine, Point of Care 1.4(H) 0.5-1.0 mg/dL Calculated GFR 38(L) >60 mL/min/1.73 m2 Specimen Blood AEROBIC CULTURE, ROUTINE (06/20/2016 10:00 AM) Component Value Range Culture No Growth Gram Stain No organisms observed Gram Stain Few PMN's Specimen Culture - Wound, Swab (Suboptimal)
[2016-08-18 09:28] LABS: Hematocrit 29.3 % (37.0-47.0); Hemoglobin 9.1 gm/dL (12.5-16.0); Mean Cell Volume 93.3 fl (78-100); Mean Corpuscular Hgb Conc 31.1 g/dl (32-36); Mean Platelet Volume 8.7 fl (6.0-9.5); Neutrophil # 4.5 K/mm3 (1.3-6.0); Neutrophil % 71.2 % (42-75.0); Platelet Count 206 K/mm3 (150-450); Red Blood Count 3.14 M/mm3 (4.2-5.4); Red Cell Distribution Width 17.9 % (11.5-14.0); White Blood Count 6.3 K/mm3 (4.0-10.5)
--- NOTE | 2016-08-18 09:28 | ERNOTE ---
Dyspnea - Date Date of Service: 08/18/16 - General Presenting Symptoms: shortness of breath Time Seen by Provider: 08/18/16 09:03 Source: patient, family Exam Limitations: no limitations - Immun/Allergies/Home Medications Immunizations: IMMUNIZATION HX History of Influenza Vaccine No Hx Pneumococcal Vaccination No Allergies/Adverse Reactions: Allergies adhesive tape Allergy (Verified 08/18/16 09:13) amoxicillin Allergy (Verified 08/18/16 09:13) penicillin V Allergy (Verified 08/18/16 09:13) Home Medications: HOME MEDICATIONS ALPRAZolam [Xanax] 0.25 mg PO BID PRN 08/18/16 [Last Taken Unknown] Acetaminophen [Tylenol] 650 mg PO Q4H PRN 08/18/16 [Last Taken Unknown] Albuterol Sulfate 2 mg PO TID 08/18/16 [Last Taken Unknown] Albuterol Sulfate [Proair Respiclick] 90 mcg IH Q6H PRN 08/18/16 [Last Taken Unknown] Atorvastatin Calcium [Lipitor] 20 mg PO DAILY 08/18/16 [Last Taken Unknown] Clopidogrel Bisulfate [Plavix] 75 mg PO DAILY 08/18/16 [Last Taken Unknown] Digoxin [Lanoxin] 62.5 mcg PO DAILY 08/18/16 [Last Taken Unknown] Docusate Sodium [Colace] 100 mg PO BID 08/18/16 [Last Taken Unknown] Furosemide [Lasix] 40 mg PO BID 08/18/16 [Last Taken Unknown] HYDROcodone/ACETAMINOPHEN [Challis 5-325] 1 tab PO Q6H PRN 08/18/16 [Last Taken Unknown] Levothyroxine Sodium [Synthroid] 75 mcg PO DAILY 08/18/16 [Last Taken Unknown] Metoprolol Tartrate [Lopressor] 6.25 mg PO BID 08/18/16 [Last Taken Unknown] Sennosides 8.6 mg PO BID 08/18/16 [Last Taken Unknown] Sildenafil Citrate [Revatio] 5 mg PO TID 08/18/16 [Last Taken Unknown] Warfarin Sodium 2 mg PO DAILY 08/18/16 [Last Taken Unknown] - History of Present Illness Narrative: 3 weeks and 6 days ago, she had a single vessel CABG and both a mitral and tricuspid valve replacement at the [facility]. Last evening about supper time, she became SOB and developed a dry cough. This persisted through the night. There was also orthopnea. She is still complaining she can't catch her breath. There has been no fever. Both lower legs are swollen, the left more than the right, and don't seem much more swollen than a week ago. This current SOB is similar to what she had prior to her heart surgery. This morning , I did review her [facility] discharge summary. She came to the [facility] ER this morning by private vehicle. She also continues to have anterior chest wall pain which she has had since her surgery almost a month ago. Severity: mild, moderate Treatment COGNOS CONSULTANT: none Initiating event: Reports: unknown Frequency of episodes: Reports: other Modifying Factors - (Improves): Reports: rest - sitting up, but not much improvement Modifying Factors (Worsens): Reports: activity, coughing, lying down Associated Symptoms-Dyspnea: Reports: cough Prior Treatment: Reports: recently seen, treated by physician, recently hospitalized. Denies: currently on antibiotics Review of Systems - Review of Systems Constitutional: Present: fatigue, malaise EYE: Present: no symptoms reported ENT: Present: no symptoms reported Respiratory: Present: See HPI Cardiology: Present: See HPI Gastrointestinal/Abdominal: Present: no symptoms reported Genitourinary: Present: no symptoms reported Musculoskeletal: Present: no symptoms reported Skin: Present: no symptoms reported Neurological: Present: no symptoms reported Endocrine: Present: no symptoms reported Hematologic/Lymphatic: Present: no symptoms reported Psych: Present: no symptoms reported All Other Systems: All systems neg except as marked - Patient's Past Medical History Patient History - Medical: Hypothyroidism Patient History - Cardiac/Respiratory: CHF, Hypertension, Hyperlipidemia, Myocardial Infarction, Other - carotid artery stenosis Patient History - Cancer: No Hx of Cancer Patient History - Surgical Procedures: Coronary Bypass Surgery, Other - right carotid endarterectomy, Hernia Repair Patient History - Other: None - Social History Living Situations: home Psych History: No pertinent hx Smoking Status: Former smoker Have you smoked in the past 12 months: No Alcohol Use: none Drug Use: none - Immunizations Hx Pneumococcal Vaccination: No History of Influenza Vaccine: No Physical Exam - Physical Exam General Appearance: Present: wd/wn, alert, mild distress Eye Exam: Normal inspection: bilateral, PERRL: bilateral, EOMI: bilateral Ears, Nose, Throat: Present: normal ENT inspection Neck: Present: other - right carotid endarterectomy scar. JVD present Respiratory: Present: no accessory muscle use, rales - bibasilar, minimal Cardiovascular/Chest: Present: regular rate, rhythm, no murmur Gastrointestinal/Abdominal: Present: normal bowel sounds, nontender, nondistended, soft, no organomegaly Back Exam: Present: normal inspection Extremity Exam: Present: pedal edema - 2 + edema both lower legs, left a little more than right. Neurological Exam: Present: alert, oriented, normal mood/affect Skin Exam: Present: normal color, warm/dry ED Progress - Results and Orders Patient's Lab Results:: I have reviewed the patient's lab results. - Vital Signs Patient's Vital Signs:: I have reviewed the patient's vital signs. Vital Signs: Vital Signs 08/18/16 08/18/16 09:05 09:11 Temperature 36.3 C L Pulse Rate 77 80 Respiratory 16 20 Rate Blood Pressure 151/76 O2 Sat by Pulse 97 96 Oximetry - EKG EKG: atrial fibrillation EKG read: Interp. by me - controlled rate, RAD, intraventricular conduction delay (was in a fib when left the [facility]) - X-Ray X-Ray #1 X-Ray: chest Interpretation: Interp. by me - large heart, mild pulmonary edema - Progress/Reassessment Chief Complaint: Dyspnea Progress Note-Subjective: 08/18/16 10:43 Diuresing. SOB a little better. Has lost her orthopnea. Spoke with our hospitalist, Melisa Baird, about admission to an observation bed. She will discuss the case with Dr. Serrano, the liaison inspection laboratory assistant doctor, and call us back. 08/18/16 10:55 Melisa called us back, and requested we consult by phone with her heart doctor. We will proceed with this. 08/18/16 11:18 Spoke with her surgeon at the [facility]. Can manage here. Echo in AM. If pericardial effusion, will need transferred. 08/18/16 11:22 I spoke with Melisa who agreed to accept the patient in a telemetry med surg observation bed. Departure Clinical Impression: Elevated troponin, Elevated TSH Acute CHF Qualifiers: Congestive heart failure type: systolic Qualified Code(s): I50.21 - Acute systolic (congestive) heart failure - Departure Disposition: [facility] Condition: Good Referrals: Av Hodges MD [Primary Care Provider] -
[2016-08-18 09:41] LABS: Prothrombin Time (Patient) 19.4 Seconds (9.4-11.4)
[2016-08-18 09:42] LABS: INR 1.87 INR (0.90-1.10)
[2016-08-18 09:53] LABS: Albumin * 3.6 gm/dl (3.4-5.0); Anion Gap 17.9 mmol/L (6.8-13.8); BUN/Creatinine Ratio 10.2 (9.0-21.6); Ca. Corrected For Albumin 9.3 mg/dL (8.4-10.2); Calcium * 9.3 mg/dL (7.9-10.9); Carbon Dioxide 24.1 mmol/L (24-32.6); Digoxin 1.5 ng/mL (0.5-2.0); TSH * 22.884 uIU/mL (0.358-3.74); Total Protein 8.2 gm/dL (6.2-8.2)
[2016-08-18 09:55] LABS: Troponin I 0.29 ng/ml (0.00-0.10)
[2016-08-18 11:03] LABS: Urine Bilirubin Negative (NEGATIVE); Urine Ketone Negative (NEGATIVE); Urine Nitrite Negative (NEGATIVE); Urine Protein Negative (NEGATIVE); Urine Urobilinogen Normal (NORMAL); Urine pH 5.5 pH (5.0-7.0)
[2016-08-18 11:12] LABS: Urine Appearance Clear; Urine Bacteria None Seen; Urine Blood 10 /ul (NEGATIVE); Urine Color Pale Yellow; Urine RBC None Seen /hpf (0-5); Urine WBC None Seen /hpf (0-5)
--- OUTSIDE RECORDS SUMMARY | 2016-08-18 11:33 | XMS REPORT | Continuity of Care Document ---
:1950 Author Organization [facility] ([facility]) Address [address] [place] [address] Phone [phone] Care Team Providers Name Role Phone LidadelioIrina mederoslexis Primary Care Provider [phone] Source Comments This disclosure is being made pursuant to the Care Everywhere program, applicable federal and state laws, and may not contain all informaitonavailable regarding this patient.[facility] ([facility]) Active Allergies and Adverse Reactions Allergen [...] Hospital General Surgery Kareem, Encounter MD Ricky 08/18/2016 Hospital Patient Services Encounter 08/15/2016 [facility], Dx: Wound infection Encounter MD Ricky after surgery, initial encounter 08/15/2016 [facility] Heart critical access hospital V[facility], Chief Comp: Patient Encounter MD Ricky Reported Reason For Visit 08/15/2016 [facility] Heart critical access hospital [facility], Chief Comp: Patient Encounter MD Ricky Reported Reason For Visit 08/15/2016 Office Visit Srg Vascular [facility], Dx: Wound infection MD Ricky after surgery, initial encounter (Primary Dx) 08/15/2016 Ancillary Orders Srg Vascular [facility], Dx: Wound infection Marques Almazan DDS after [...] Rheumatic mitral Encounter MD Casi regurgitation 07/09/2016 [facility] Vascular Jeni, Dx: Rheumatic mitral Encounter MD [...] and Vascular Petra Swann, Dx: Mitral valve CEMENT SACK BREAKER disorder (Primary Dx) 07/04/2016 Office Visit Sr Vascular Kareem Dx: Carotid artery MD Ricky stenosis, asymptomatic, right (Primary Dx) 07/04/2016 [facility] Radiology Joaquín Enciso, Dx: Pre-procedure Encounter lab exam (Primary Dx) 07/04/2016 Office Visit Pathology Kareem, Dx: Pre-procedure MD Ricky lab exam Lab Services, Ir 06/20/2016 [facility], Chief Comp: Patient Encounter MD Ricky Reported Reason For Visit 06/20/2016 [facility] critical access hospital Vascular Kareem, Dx: Carotid Encounter MD Ricky stenosis, bilateral 06/20/2016 Office Visit Sr Vascular Kareem, Dx: Stenosis of MD Ricky right carotid artery (Primary Dx) 06/07/2016 Office Visit Heart and Vascular Calos, Dx: Coronary artery MD Shannon disease involving [place] coronary artery of [place] heart without angina pectoris (Primary Dx) 06/06/2016 [...] CDT Respiratory Rate 18 08/02/2016 3:43 PM HALL CLEANER Height 1.6 m (5' 2.99") 07/22/2016 6:12 AM HALL CLEANER Weight 77.1 kg (169 lb 15.6 oz) 08/15/2016 10:42 AM CDT Body Mass Index 30.12 08/15/2016 10:42 AM CDT Oxygen Saturation 100% 08/02/2016 3:08 PM HALL CLEANER Plan of Care Date Type Specialty Providers Description 09/04/2016 Surgery General Surgery Ricky Serna, Right Neck wound exploration; Possible [address] [place] [address] Reconstruction [phone] (Fax) 09/06/2016 Appointment Heart and Vascular Default, Other Chief Comp: Patient Billg - Defo Reported Reason For [address] [place] [address] [phone] (Fax) 09/06/2016 Appointment Heart and Vascular Default, Other Billg - Defo [address] [place] [address] [phone] (Fax) Chief Comp: Patient Shannon Live MD [address] [place] [address] [phone] (Fax) Reported Reason For Visit 11/07/2016 Appointment Srg Vascular Ricky Serna, Chief Comp: Patient Reported Reason For [address] [place] [address] [phone] (Fax) Health Maintenance Due Date Last Done [...] disorder Results for this BILLING STAFF PM HALL CLEANER 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 S/P mitral valve repair S/P tricuspid valve repair TSG OR CASE Routine 07/23/2016 7:44 Rheumatic mitral Results for this PM HALL CLEANER regurgitation procedure are in the results section. CORONARY ARTERY 07/22/2016 8:15 Rheumatic mitral BYPASS GRAFT, AM HALL CLEANER regurgitation ARTERY/VEIN Case Notes MVR/TVR, possible CABG-full sternotomy-on bypas-supine- [id number] MITRAL and TRICUSPID VALVE 07/22/2016 8:15 AM HALL CLEANER Rheumatic mitral REPLACEMENT REPAIR regurgitation Case Notes MVR/TVR, possible CABG-full sternotomy-on bypas-supine- [id number] Results from Last 3 Months VASC CAROTID [...] Results - FriAug 02, 2016 6:10 PM HALL CLEANER Procedure: CHEST- PA & LATERAL Clinical Indication: [...] mEq/L Specimen Blood CT BRAIN WO CONTRAST ([id number]) (08/01/2016 6:29 PM) Narrative Procedure: CT BRAIN WO CONTRAST ([id number]) Indication: Vision changes, evaluate for stroke. Technique: [...] and emergent preliminary findings reported by the resident care provider secretary board of commissioners. Procedure Note Donavon, Incoming Imaging Results - FriAug 02, 2016 9:33 AM HALL CLEANER Procedure: CT BRAIN WO CONTRAST ([id number]) Indication: Vision changes, evaluate for stroke. Technique: [...] and emergent preliminary findings reported by the resident care provider secretary board of commissioners. MICROSCOPIC URINALYSIS (08/01/2016 12:24 PM)Only the most [...] Clear Clear pH, Urine 5.0 <9.0 Spec [place], Urine 1.005 1.000-1.030 Glucose, Urine Negative Negative [...] Abnormality Status --------- ------ URINALYSIS WITH REFLEX C...[[id number]]AbnormalFinal result MICROSCOPIC URINALYSIS[[id number]] Abnormal Final result URINE CULTURE, REFLEXED[[id number]] Please view results for these tests on [...] Impressions Findings / Impression: Interval removal of Deford-David catheter. Stable mild prominence of the cardiomediastinal [...] - Nica Aug 01, 2016 11:17 AM HALL CLEANER Procedure: CHEST - AP/PA Technique: Portable AP chest radiograph Comparison: Chest radiograph(s) dated: 07/30/2016. Clinical Indication: Status post CABG, mitral valve repair IMPRESSION Findings / Impression: Interval removal of Deford-David catheter. Stable mild prominence of the cardiomediastinal [...] can College of Cardiology Foundation (ACCF) / [place] [employer] Association (AHA ) 2013 guidelines recommend [...] to verify the correct patient, procedure, equipment, data support specialist and site/side marked as required Anesthesia (see [...] included. Component Value Range Blood Coding System [id number] Blood Product Volume 325 Blood Product ABORH A Neg Blood Unit Number [id number] BLOOD DISPENSE STATUS ISS Blood Product Type Red Blood Cells Blood Product Code W3602M83 TSG OR CASE (07/23/2016 7:44 PM) Procedure Note FriJul 22, 2016 12:00 AM HALL CLEANER Date: 07/22/2016 LOCATION: Main OR room 7. [...] Live MD FELLOW SURGEON: Drew Humphrey M.D. ACCOUNTS RECEIVABLE ASSISTANT: Elier Madrigal RN. INDICATIONS: Manuela Camaerna is a 66-year-old female patient with peripheral [...] ventilation, warmed the patient back up, and cami sarah off cardiopulmonary bypass. We had to [...] Shannon Live MD Dictated Date/Time: 07/23/2016 16:43:38 Tripe Washer Initials: NTS Voice Job ID : [id number] PLASMA DISPENSE FROM BLOOD BANK (07/22/2016 5:08 PM)Only the most recent of4 resultswithin the time period is included. Component Value Range Blood Coding System [id number] Blood Product Volume 309 Blood Product ABORH A Pos Blood Unit Number [id number] BLOOD DISPENSE STATUS ISS Blood Product Type FFP Blood Product Code S4536W90 Blood Coding System QBDR614 Blood Product Volume 306 Blood Product ABORH A Pos Blood Unit Number [id number] BLOOD DISPENSE STATUS RET Blood Product Type FFP Blood Product Code N3996D94 FIBRINOGEN (07/22/2016 5:01 PM)Only the most recent of5 resultswithin the time period is included. Component Value Range Fibrinogen 273 180-400 mg/dL Specimen Blood CRYOPRECIPITATE DISPENSE FROM BLOOD BANK (07/22/2016 3:40 PM) Component Value Range Blood Coding System LZAW325 Blood Product Volume 96 Blood Product ABORH A Pos Blood Unit Number [id number] BLOOD DISPENSE STATUS ISS Blood Product Type Cryoprecipitate Blood Product Code L2162P79 PLATELETS DISPENSE FROM BLOOD BANK (07/22/2016 3:29 PM)Only the most recent of2 resultswithin the time period is included. Component Value Range Blood Coding System QMVA194 Blood Product Volume 258 Blood Product ABORH AB Neg Blood Unit Number [id number] BLOOD DISPENSE STATUS ISS Blood Product Type Platelets Blood Product Code C8840C86 THROMBOELASTOGRAPH (TEG) (07/22/2016 2:37 PM)Only the most [...] Value Range Case Report Surgical Pathology Case: [id number] Authorizing Provider:Shannon Live MD Collected: 07/22/2016 11:57 AM Ordering Location: Main OR Received:07/22/2016 12:05 PM Pathologist: Jame Patricia MD Specimen:Heart Valve Tissue, mitral valve leaflets Diagnosis Cardiac valve, mitral valve tissue, removal: Calcific valvulopathy (gross only). I have personally reviewed this case and edited the report as necessary. Gross Description Received in formalin in a container labeled with Manuela Migue , hospital number, and "mitral valve leaflets" [...] for MV Replacement, TV Repair, and CABG Wearing Apparel Shaker Matteo An Interpreting Physician Matteo An MD [...] 72.1 kg BSA (meters^2) 1.8 m^2 Procedures ([id number]) RVDd 3.5 cm IVSd 1.2 cm LVIDd [...] Narrative Test methodology:PCR amplification; Xpert SA Test ([employer]) CHOLESTEROL (07/09/2016 11:16 AM) Component Value Range [...] Specimen Blood CT ANGIO HEAD& NECK W/WO ([id number], [id number]) (07/04/2016 10:49 AM) Impressions Impression: 1. Postsurgical [...] to: PERSON CONTACTED:MIKE Suarez DATE: 07/04/2016 TIME CALLED:[phone] PHONE/PAGER:[phone] Narrative Procedure: CT ANGIO HEAD & NECK W/WO ([id number], [id number]) Indication: Draining from right carotid endarterectomy incision Exam: Axial CT angiogram of the neck and [place] after the uneventful administration of [...] Procedure Note Donavon, Incoming Imaging Results - [facility] Jul 04, 2016 1:57 PM HALL CLEANER Procedure: CT ANGIO HEAD & NECK W/WO ([id number], [id number]) Indication: Draining from right carotid endarterectomy incision Exam: Axial CT angiogram of the neck and [place] after the uneventful administration of [...] CONTACTED: MIKE Suarez DATE: 07/04/2016 TIME CALLED: [phone] PHONE/PAGER: [phone] IRL RADIOLOGY CREATININE, POINT OF CARE (07/04/2016 9:53 AM) Component Value Range IRL Radiology Creatinine, Point of Care 1.4(H) 0.5-1.0 mg/dL Calculated GFR 38(L) >60 mL/min/1.73 m2 Specimen Blood AEROBIC CULTURE, ROUTINE (06/20/2016 10:00 AM) Component Value Range Culture No Growth Gram Stain No organisms observed Gram Stain Few PMN's Specimen Culture - Wound, Swab (Suboptimal)
[2016-08-18] MEDS ORDERED: NON-FORMULARY 1 DOSE DOSE (Albuterol Sulfate [Proair Respiclick] 90 MCG) IH PRN (11:53)
[2016-08-18] MEDS ORDERED: ALPRAZolam 0.25 MG TABLET PO PRN (11:53)
[2016-08-18] MEDS ORDERED: HYDROcodone/ACETAMINOPHEN 1 EACH TABLET PO PRN (11:53)
[2016-08-18] MEDS ORDERED: ALBUTEROL SULFATE 2.5 MG/3 ML VIAL.NEB IH PRN (12:38)
--- NOTE | 2016-08-18 13:32 | HP ---
Chief Complaint - Chief Complaint Date of Service: 08/18/16 Time of Service: 12:35 Chief Complaint: CHF exac. History of Present Illness: Manuela is a 66 year old female with a PMH of anemia, diastolic HF, COPD, CAD, HTN , CAD, HLP, hypothyroidism, pulmonary HTN, and PVD who presented to the emergency room today with c/o severe dyspnea since last night with increasing lower extremity edema. Patient has recent history of single vessel bypass and mitral valve replacement and tricupid valve repair almost 4 weeks ago at the [facility] by Dr. Live. Open heart surgery occurred on 07/22/16 and consisted of 1) CABG x1 with SVG -->PDA, 2) mitral valve replacement with bovine valve, 3) tricuspid valve repair with ring and 4) harvest of the left great saphenous vein. Intraoperative RENAN showed significant RV and LV dysfunction with an ef of 35% with multiple areas of akinesis, including apex, septum and inferior wall, in addition pulmonary HTN and right heart strain. After open heart surgery, the patient heart rhythm was afib - to which she is on coumadin to this day. Work up in the emergency room revealed an ekg that showed afib, RAD and IVCD, chest xray that shows an enlarged heart with mild pulmonary edema, BNP over 20, 000, TSH 22.884, troponin 0.290. The patient's cardiothoracic surgeon, Dr. Live, was contacted prior to admission and he verbalized his agreement to Dr. IVAN to admit to [facility]. Dr Live indicated he would like an echo in the am and if a pericardial effusion is present, the patient will need to be transferred to [facility] at that time. Patient was admitted to the floor for CHF exacerbation. - Patient's Past Medical History Patient History - Medical: Anemia, Anxiety, Fibromyalgia, Hypothyroidism, Osteoarthritis Patient History - Cardiac/Respiratory: Atrial Fibrillation, Arrhythmias, Cardiac Arrest, Cardiomyopathy, Coronary Heart Disease, CHF, COPD, Hypertension , Hyperlipidemia, Myocardial Infarction, Valvular Heart Disease, Other Patient History - Cancer: No Hx of Cancer Patient History - Surgical Procedures: Appendectomy, Coronary Bypass Surgery, Hysterectomy, Other, Hernia Repair Patient History - Other: None LMP (females 10-50): Menopausal - Family History Mother Family History - Cardiac/Respiratory: Aneurysm, Cardiac Arrest, Myocardial Infarction Family History - Cancer: Other - Social History Living Situations: spouse Psych History: No pertinent hx Smoking Status: Former smoker Have you smoked in the past 12 months: No Alcohol Use: none Drug Use: none - Immunizations Hx Pneumococcal Vaccination: No History of Influenza Vaccine: No Review Of Systems (GEN) - Review of Systems Generalized/Overall Review: Present: No Symptoms Reported EENTM: Present: No Symptoms Reported Respiratory: Present: Shortness of Breath, Orthopnea Cardiac: Present: Edema Abdominal: Present: No Symptoms Reported Genitourinary: Present: No Symptoms Reported Musculoskeletal: Present: No Symptoms Reported Neurological: Present: No Symptoms Reported Skin: Present: No Symptoms Reported Endocrine: Present: No Symptoms Reported Misc: All systems neg except as marked Allergies/Adverse Reactions: Allergies Allergy/AdvReac Type Severity Reaction Status Date / Time adhesive tape Allergy Verified 08/18/16 09:13 amoxicillin Allergy Verified 08/18/16 09:13 penicillin V Allergy Verified 08/18/16 09:13 Home Medications: HOME MEDICATIONS ALPRAZolam [Xanax] 0.25 mg PO BID PRN 08/18/16 [Last Taken Unknown] Acetaminophen [Tylenol] 650 mg PO Q4H PRN 08/18/16 [Last Taken Unknown] Albuterol Sulfate 2 mg PO TID 08/18/16 [Last Taken Unknown] Albuterol Sulfate [Proair Respiclick] 90 mcg IH Q6H PRN 08/18/16 [Last Taken Unknown] Atorvastatin Calcium [Lipitor] 20 mg PO DAILY 08/18/16 [Last Taken Unknown] Clopidogrel Bisulfate [Plavix] 75 mg PO DAILY 08/18/16 [Last Taken Unknown] Digoxin [Lanoxin] 62.5 mcg PO DAILY 08/18/16 [Last Taken Unknown] Docusate Sodium [Colace] 100 mg PO BID 08/18/16 [Last Taken Unknown] Furosemide [Lasix] 40 mg PO BID 08/18/16 [Last Taken Unknown] HYDROcodone/ACETAMINOPHEN [[place] 5-325] 1 tab PO Q6H PRN 08/18/16 [Last Taken Unknown] Levothyroxine Sodium [Synthroid] 75 mcg PO DAILY 08/18/16 [Last Taken Unknown] Metoprolol Tartrate [Lopressor] 6.25 mg PO BID 08/18/16 [Last Taken Unknown] Sennosides 8.6 mg PO BID 08/18/16 [Last Taken Unknown] Sildenafil Citrate [Revatio] 5 mg PO TID 08/18/16 [Last Taken Unknown] Warfarin Sodium 2 mg PO DAILY 08/18/16 [Last Taken Unknown] Exam - Exam Vital Signs: Vital Signs - Last Taken Temp 36.4 C L 08/18/16 12:23 Pulse 71 08/18/16 12:23 Resp 14 08/18/16 12:23 BP 176/71 08/18/16 12:23 Pulse Ox 94 08/18/16 10:40 Constitutional: Present: Alert, Oriented x3, Cooperative, No distress, Looks Older than stated age ENT Exam: Present: hearing grossly normal Eye Exam: bilateral eye: normal inspection Neck: Present: full range of motion, supple Breasts: Present: Exam deferred Respiratory: Present: chest non-tender, crackles Cardiovascular/Chest: Present: normal peripheral pulses, no murmur, JVD, irregularly irregular Peripheral Pulses: carotid (R): 2+, carotid (L): 2+, radial (R): 2+, radial (L) : 2+ Abdomen: Present: Normal bowel sounds, soft, nontender, nondistended /Rectal: Present: Exam deferred Extremity: Present: normal range of motion, non-tender, lower extremity edema - 3+ lower extremity edema bilat Skin Exam: Present: warm/dry, no cyanosis Neurologic: Present: alert, oriented x 3 Diagnostic Studies: Laboratory Results WBC 6.3 K/mm3 (4.0-10.5) 08/18/16 09:15 RBC 3.14 M/mm3 (4.2-5.4) L 08/18/16 09:15 Hgb 9.1 gm/dL (12.5-16.0) L 08/18/16 09:15 Hct 29.3 % (37.0-47.0) L 08/18/16 09:15 MCV 93.3 fl (78-100) 08/18/16 09:15 MCH 29.0 pg (27-31) 08/18/16 09:15 MCHC 31.1 g/dl (32-36) L 08/18/16 09:15 RDW 17.9 % (11.5-14.0) H 08/18/16 09:15 Plt Count 206 K/mm3 (150-450) 08/18/16 09:15 MPV 8.7 fl (6.0-9.5) 08/18/16 09:15 Immature Gran % (Auto) 0.50 % (0.001-0.429) H 08/18/16 09:15 Immature Gran # (Auto) 0.03 K/mm3 (0.000-0.0310) 08/18/16 09:15 Neutrophils % 71.2 % (42-75.0) 08/18/16 09:15 Lymphocytes % 15.0 % (20-51) L 08/18/16 09:15 Monocytes % 10.7 % (0.0-9) H 08/18/16 09:15 Eosinophils % 1.8 % (0.0-3.0) 08/18/16 09:15 Basophils % 0.8 % (0.0-1.0) 08/18/16 09:15 Nucleated RBC % 0.0 k/mm3 (0-1) 08/18/16 09:15 Neutrophils # 4.5 K/mm3 (1.3-6.0) 08/18/16 09:15 Lymphocytes # 0.9 k/mm3 (1.5-3.5) L 08/18/16 09:15 Monocytes # 0.7 k/mm3 (0.0-1.0) 08/18/16 09:15 Eosinophils # 0.1 k/mm3 (0.0-0.7) 08/18/16 09:15 Absolute Basophils 0.1 k/mm3 (0.0-0.1) 08/18/16 09:15 PT 19.4 Seconds (9.4-11.4) H 08/18/16 09:15 INR (Anticoag Therapy) 1.87 INR (0.90-1.10) H 08/18/16 09:15 Sodium 132 mmol/L (132-142) 08/18/16 09:15 Plasma Sodium 133 mmol/L (130-142) 08/18/16 09:15 Potassium 4.0 mmol/L (3.4-4.6) 08/18/16 09:15 Chloride 94 mmol/L (97-106) L 08/18/16 09:15 Carbon Dioxide 24.1 mmol/L (24-32.6) 08/18/16 09:15 Anion Gap 17.9 mmol/L (6.8-13.8) H 08/18/16 09:15 BUN 13 mg/dL (3-23) D 08/18/16 09:15 Creatinine 1.28 mg/dL (0.4-1.4) 08/18/16 09:15 Est GFR (Non-Af Amer) 45 mL/min (60-130) L D 08/18/16 09:15 BUN/Creatinine Ratio 10.2 (9.0-21.6) 08/18/16 09:15 Random Glucose 161 mg/dL (70-110) H 08/18/16 09:15 Calcium 9.3 mg/dL (7.9-10.9) 08/18/16 09:15 Calcium Adj for Albumin 9.3 mg/dL (8.4-10.2) 08/18/16 09:15 Total Bilirubin 1.0 mg/dL (0.0-1.1) 08/18/16 09:15 AST 16 U/L (0-48) 08/18/16 09:15 ALT 16 U/L (19-67) L 08/18/16 09:15 Alkaline Phosphatase 143 U/L (50-170) 08/18/16 09:15 Troponin I 0.290 ng/ml (0.00-0.10) H* 08/18/16 09:15 B-Natriuretic Peptide 47426 pg/mL (5-205) H 08/18/16 09:15 Total Protein 8.2 gm/dL (6.2-8.2) 08/18/16 09:15 Albumin 3.6 gm/dl (3.4-5.0) 08/18/16 09:15 TSH 22.884 uIU/mL (0.358-3.74) H 08/18/16 09:15 Urine Color Pale yellow 08/18/16 10:58 Urine Appearance Clear 08/18/16 10:58 Urine pH 5.5 pH (5.0-7.0) 08/18/16 10:58 Ur Specific [place] 1.010 SP.GR. (1.005-1.010) 08/18/16 10:58 Urine Protein Negative mg/dL (NEGATIVE) 08/18/16 10:58 Urine Glucose (UA) Negative mg/dL (NEGATIVE) 08/18/16 10:58 Urine Ketones Negative mg/dL (NEGATIVE) 08/18/16 10:58 Urine Blood 10 /ul (NEGATIVE) H 08/18/16 10:58 Urine Nitrate Negative (NEGATIVE) 08/18/16 10:58 Urine Bilirubin Negative mg/dl (NEGATIVE) 08/18/16 10:58 Urine Urobilinogen Normal EU/dl (NORMAL) 08/18/16 10:58 Ur Leukocyte Esterase Negative /ul (NEGATIVE) 08/18/16 10:58 Urine RBC None seen /hpf (0-5) 08/18/16 10:58 Urine WBC None seen /hpf (0-5) 08/18/16 10:58 Ur Epithelial Cells None seen /hpf (0-5) 08/18/16 10:58 Urine Bacteria None seen (NONE) 08/18/16 10:58 Urine Culture Comments No culture indicated 08/18/16 10:58 Digoxin 1.5 ng/mL (0.5-2.0) 08/18/16 09:15 Assessment/Plan - Narrative Narrative: Acute on Chronic CHF -has both systolic and diastolic heart failure. -lasix 100 mg given in the ER; start 60 mg IV bid on the floor -check labs in the am. - heart failure teaching - echo in the am. - strict I/Os, daily weights - diuresis fluid off patient while admitted. elevated troponin - likely from recent open heart surgery. will monitor. afib - on coumadin; monitor on tele; provide rate control if needed. on dig. dig level in er ok. elevated tsh - monitor for now. asymptomatic. HTN / HLP - restart home meds Code status: full code VTE: already on coumadin. monitor INR. - Assessment/Plan (1) Acute on chronic diastolic CHF (congestive heart failure) Problem: Acute (2) Hx of mitral valve replacement with tissue graft Problem: Chronic (3) History of tricuspid valve repair Problem: Chronic (4) Hypertension Problem: Chronic Qualifiers: Hypertension type: essential hypertension Qualified Code(s): I10 - Essential (primary) hypertension (5) Hyperlipidemia Problem: Chronic Qualifiers: Hyperlipidemia type: unspecified Qualified Code(s): E78.5 - Hyperlipidemia , unspecified (6) Atrial fibrillation Problem: Chronic Qualifiers: Atrial fibrillation type: unspecified Qualified Code(s): I48.91 - Unspecified atrial fibrillation (7) Hypothyroidism Problem: Chronic Qualifiers: Hypothyroidism type: acquired Qualified Code(s): E03.9 - Hypothyroidism, unspecified (8) PVD (peripheral vascular disease) Problem: Chronic (9) Pulmonary hypertension Problem: Chronic (10) COPD (chronic obstructive pulmonary disease) Problem: Chronic Qualifiers: COPD type: unspecified COPD Qualified Code(s): J44.9 - Chronic obstructive pulmonary disease, unspecified (11) Has smoked within prior year Problem: Chronic (12) Anticoagulant long-term use Problem: Chronic (13) Elevated TSH Problem: Acute (14) Elevated troponin Problem: Acute (15) CHF (congestive heart failure) Problem: Chronic Qualifiers: Congestive heart failure type: combined Congestive heart failure chronicity : unspecified congestive heart failure chronicity Qualified Code(s): I50.40 - Unspecified combined systolic (congestive) and diastolic (congestive) heart failure
[2016-08-18] MEDS: SILDENAFIL CITRATE 20 MG TABLET PO SCH ×2 (13:44→16:10)
[2016-08-18 16:28] LABS: CKMB 1.3 ng/mL (0.0-9.0)
[2016-08-18 16:31] LABS: Troponin I 0.305 ng/ml (0.00-0.10)
[2016-08-18] MEDS: FUROSEMIDE 10 MG/ML VIAL IV SCH (21:26)
[2016-08-18] MEDS: DOCUSATE SODIUM 100 MG CAPSULE PO SCH (21:27)
[2016-08-18] MEDS: SENNOSIDES 8.6 MG TABLET PO SCH (21:27)
[2016-08-18] MEDS: METOPROLOL TARTRATE 25 MG TABLET PO SCH (21:28)
[2016-08-18] MEDS: ROSUVASTATIN CALCIUM 10 MG TABLET PO SCH (21:29)
[2016-08-18] MEDS: ACETAMINOPHEN 325 MG TABLET PO PRN (21:46)
[2016-08-19] MEDS: FAMOTIDINE 20 MG TABLET PO SCH ×2 (00:06→10:27)
[2016-08-19 05:48] LABS: Hematocrit 29.4 % (37.0-47.0); Hemoglobin 9.1 gm/dL (12.5-16.0); Mean Cell Volume 92.7 fl (78-100); Mean Corpuscular Hemoglobin 28.7 pg (27-31); Mean Platelet Volume 8.8 fl (6.0-9.5); Platelet Count 201 K/mm3 (150-450); Red Blood Count 3.17 M/mm3 (4.2-5.4); Red Cell Distribution Width 17.4 % (11.5-14.0); White Blood Count 5.9 K/mm3 (4.0-10.5)
[2016-08-19 05:57] LABS: Prothrombin Time (Patient) 17.3 Seconds (9.4-11.4)
[2016-08-19 05:58] LABS: INR 1.66 INR (0.90-1.10)
[2016-08-19 06:04] LABS: Total Cells Counted 100
[2016-08-19 06:13] LABS: Albumin * 3.5 gm/dl (3.4-5.0); Anion Gap 16.8 mmol/L (6.8-13.8); Bilirubin, Total 1.1 mg/dL (0.0-1.1); Ca. Corrected For Albumin 9.2 mg/dL (8.4-10.2); Calcium * 9.1 mg/dL (7.9-10.9); Carbon Dioxide 25.9 mmol/L (24-32.6); Potassium 3.7 mmol/L (3.4-4.6)
[2016-08-19 06:28] LABS: Basophil 1 % (0-1); Eosinophil 3 % (0-3); Hypochromia 1+; Immature Granulocyte 1 (0-1); Lymphocyte 25 % (20-51); Macrocytosis 1+; Monocyte 11 % (0-9); Neutrophil 59 % (42-75); Neutrophil # 3.5 K/mm3 (1.3-6.0); Platelet Estimate Normal (NORMAL)
[2016-08-19] MEDS: LEVOTHYROXINE SODIUM 100 MCG TABLET PO SCH (07:28)
[2016-08-19] MEDS ORDERED: ATORVASTATIN CALCIUM 20 MG PO SCH (09:00)
[2016-08-19] MEDS: SILDENAFIL CITRATE 20 MG TABLET PO SCH ×3 (10:12→16:46)
[2016-08-19] MEDS: FUROSEMIDE 10 MG/ML VIAL IV SCH ×2 (10:12→21:41)
[2016-08-19] MEDS: SENNOSIDES 8.6 MG TABLET PO SCH ×2 (10:12→21:40)
[2016-08-19] MEDS: DIGOXIN 0.125 MG TABLET PO SCH (10:13)
[2016-08-19] MEDS: DOCUSATE SODIUM 100 MG CAPSULE PO SCH ×2 (10:13→21:39)
[2016-08-19] MEDS: METOPROLOL TARTRATE 25 MG TABLET PO SCH ×2 (10:14→21:40)
[2016-08-19] MEDS: CLOPIDOGREL BISULFATE 75 MG TABLET PO SCH (10:14)
[2016-08-19] MEDS ORDERED: PANTOPRAZOLE SODIUM 20 MG TABLET.DR PO ONE (10:30)
[2016-08-19] MEDS ORDERED: WARFARIN SODIUM 2 MG TABLET PO SCH (17:00)
[2016-08-19] MEDS ORDERED: POTASSIUM CHLORIDE 20 MEQ TABLET.SA PO ONE ×2 (17:02→21:00)
--- NOTE | 2016-08-19 19:13 | PN ---
Subjective - Date and Time Seen Date: 08/19/16 Time: 16:55 Subjective Narrative: Manuela is a 66 year old female with a PMH of anemia, diastolic HF, COPD, CAD, HTN , CAD, HLP, hypothyroidism, pulmonary HTN, and PVD who presented to the emergency room today with c/o severe dyspnea since last night with increasing lower extremity edema. Patient has recent history of single vessel bypass and mitral valve replacement and tricupid valve repair almost 4 weeks ago at the [facility] by Dr. Live. Open heart surgery occurred on 07/22/16 and consisted of 1) CABG x1 with SVG -->PDA, 2) mitral valve replacement with bovine valve, 3) tricuspid valve repair with ring and 4) harvest of the left great saphenous vein. Intraoperative RENAN showed significant RV and LV dysfunction with an ef of 35% with multiple areas of akinesis, including apex, septum and inferior wall, in addition pulmonary HTN and right heart strain. After open heart surgery, the patient heart rhythm was afib - to which she is on coumadin to this day. Work up in the emergency room revealed an ekg that showed afib, RAD and IVCD, chest xray that shows an enlarged heart with mild pulmonary edema, BNP over 20, 000, TSH 22.884, troponin 0.290. The patient's cardiothoracic surgeon, Dr. Live, was contacted prior to admission and he verbalized his agreement to Dr. IVAN to admit to [facility]. Dr Live indicated he would like an echo in the am and if a pericardial effusion is present, the patient will need to be transferred to [facility] at that time. Patient was admitted to the floor for CHF exacerbation. On 08/19/16 - stable overnight. weight down 0.7 kg in 24 hours. I/Os negative approximately 2 liters. echo today showed ef 25-30% with no pericardial effusion. currently on 60 mg IV lasix bid. replaced potassium with oral KCL. Objective - Review of Systems Generalized/Overall Review: Reports: Fatigue EENTM: Reports: No Symptoms Reported Respiratory: Reports: Shortness of Breath Cardiac: Reports: Edema Abdominal: Reports: No Symptoms Reported Genitourinary Symptoms: Reports: No Symptoms Reported Musculoskeletal Complaints: Reports: No Symptoms Reported Neurological: Reports: No Symptoms Reported Skin: Reports: No Symptoms Reported Endocrine: Reports: No Symptoms Reported Misc: All systems neg except as marked - Vitals Vitals: Last Vital Signs Temp 37.3 C 08/19/16 14:00 Pulse 73 08/19/16 14:00 Resp 18 08/19/16 14:00 BP 122/40 08/19/16 14:00 Pulse Ox 100 08/19/16 14:00 - Abnormal Lab Findings Abnormal Lab Findings: Abnormal Lab Results 08/19/16 08/19/16 08/19/16 Range/Units 05:35 05:35 05:35 RBC 3.17 L (4.2-5.4) M/mm3 Hgb 9.1 L (12.5-16.0) gm/dL Hct 29.4 L (37.0-47.0) % MCHC 31.0 L (32-36) g/dl RDW 17.4 H (11.5-14.0) % Monocytes % (Manual) 11 H (0-9) % PT 17.3 H (9.4-11.4) Seconds INR (Anticoag Therapy) 1.66 H (0.90-1.10) INR Chloride 93 L (97-106) mmol/L Anion Gap 16.8 H (6.8-13.8) mmol/L Est GFR (Non-Af Amer) 47 L (60-130) mL/min Random Glucose 147 H (70-110) mg/dL ALT 15 L (19-67) U/L - Exam Constitutional: Present: Alert, Oriented x3, Cooperative, No distress ENT Exam: Present: hearing grossly normal Neck: Present: full range of motion, supple Respiratory: Present: chest non-tender, no respiratory distress, no accessory muscle use, decreased breath sounds, rales - bases Cardiovascular/Chest: Present: regular rate, rhythm, no murmur, JVD Abdomen: Present: soft, nontender, nondistended /Rectal: Present: Exam deferred Extremity: Present: non-tender, lower extremity edema - 2+ lower extremity edema bilat. Skin Exam: Present: normal color, warm/dry, no cyanosis Neurologic: Present: alert, oriented x 3 Cauti Physician Documentation - Urinary Catheter Management Urethral (Edge) Urethral Indwelling: Yes Reason for Continuing Indwelling Catheter: Measure accurate output Date of Insertion: 08/18/16 Time of Insertion: 10:54 Assessment/Plan Plan Narrative: continue diuresis with IV lasix. strict I/Os. daily weights. labs in am. c/ o cough - recheck chest xray in am. echo shows no pericardial effusion so will not need to transfer to [facility]. - Problems/Diagnosis (1) Acute on chronic diastolic CHF (congestive heart failure) Problem: Acute (2) Hx of mitral valve replacement with tissue graft Problem: Chronic (3) History of tricuspid valve repair Problem: Chronic (4) Hypertension Problem: Chronic Qualifiers: Hypertension type: essential hypertension Qualified Code(s): I10 - Essential (primary) hypertension (5) Hyperlipidemia Problem: Chronic Qualifiers: Hyperlipidemia type: unspecified Qualified Code(s): E78.5 - Hyperlipidemia , unspecified (6) Atrial fibrillation Problem: Chronic Qualifiers: Atrial fibrillation type: unspecified Qualified Code(s): I48.91 - Unspecified atrial fibrillation (7) Hypothyroidism Problem: Chronic Qualifiers: Hypothyroidism type: acquired Qualified Code(s): E03.9 - Hypothyroidism, unspecified (8) PVD (peripheral vascular disease) Problem: Chronic (9) Pulmonary hypertension Problem: Chronic (10) COPD (chronic obstructive pulmonary disease) Problem: Chronic Qualifiers: COPD type: unspecified COPD Qualified Code(s): J44.9 - Chronic obstructive pulmonary disease, unspecified (11) Has smoked within prior year Problem: Chronic (12) Anticoagulant long-term use Problem: Chronic (13) Elevated TSH Problem: Acute (14) Elevated troponin Problem: Acute (15) CHF (congestive heart failure) Problem: Chronic Qualifiers: Congestive heart failure type: combined Congestive heart failure chronicity : unspecified congestive heart failure chronicity Qualified Code(s): I50.40 - Unspecified combined systolic (congestive) and diastolic (congestive) heart failure
[2016-08-19] MEDS: PANTOPRAZOLE SODIUM 20 MG TABLET.DR PO SCH (21:37)
[2016-08-19] MEDS: ROSUVASTATIN CALCIUM 10 MG TABLET PO SCH (21:42)
[2016-08-20 05:42] LABS: Hematocrit 30.2 % (37.0-47.0); Hemoglobin 9.4 gm/dL (12.5-16.0); Mean Cell Volume 92.6 fl (78-100); Mean Corpuscular Hemoglobin 28.8 pg (27-31); Mean Corpuscular Hgb Conc 31.1 g/dl (32-36); Mean Platelet Volume 9.2 fl (6.0-9.5); Platelet Count 193 K/mm3 (150-450); Red Blood Count 3.26 M/mm3 (4.2-5.4); Red Cell Distribution Width 17.3 % (11.5-14.0); White Blood Count 5.5 K/mm3 (4.0-10.5)
[2016-08-20 05:50] LABS: Prothrombin Time (Patient) 14.9 Seconds (9.4-11.4)
[2016-08-20 05:53] LABS: INR 1.43 INR (0.90-1.10)
[2016-08-20 06:01] LABS: Total Cells Counted 100
[2016-08-20 06:06] LABS: Anion Gap 15.2 mmol/L (6.8-13.8); Calcium * 8.9 mg/dL (7.9-10.9); Carbon Dioxide 26.8 mmol/L (24-32.6)
[2016-08-20 06:21] LABS: Basophil 1 % (0-1); Hypochromia 1+; Immature Granulocyte 4 (0-1); Lymphocyte 28 % (20-51); Macrocytosis 2+; Monocyte 7 % (0-9); Neutrophil 60 % (42-75); Neutrophil # 3.3 K/mm3 (1.3-6.0); Platelet Estimate Normal (NORMAL); Polychromasia 1+
[2016-08-20] MEDS: PANTOPRAZOLE SODIUM 20 MG TABLET.DR PO SCH ×2 (06:53→21:59)
[2016-08-20] MEDS: ACETAMINOPHEN 325 MG TABLET PO PRN ×2 (06:53→22:07)
[2016-08-20] MEDS: LEVOTHYROXINE SODIUM 100 MCG TABLET PO SCH (06:53)
--- NOTE | 2016-08-20 08:01 | PN ---
Subjective - Date and Time Seen Date: 08/20/16 Time: 07:55 Subjective Narrative: Feeling better this morning and slept like a log last night. Echo showed no pericardial effusion and transfer cancelled. Follow up CXR still showing pulmonary congestion Objective - Review of Systems Generalized/Overall Review: Reports: Weakness. Denies: Chills EENTM: Reports: No Symptoms Reported Respiratory: Reports: Shortness of Breath, Orthopnea Cardiac: Reports: Edema. Denies: Chest Pain, Palpitations Abdominal: Denies: Nausea, Vomiting Genitourinary Symptoms: Denies: Urgency, Frequency - Vitals Vitals: Last Vital Signs Temp 37.1 C 08/20/16 06:47 Pulse 104 H 08/20/16 06:47 Resp 20 08/20/16 06:47 BP 138/93 08/20/16 06:47 Pulse Ox 97 08/20/16 06:47 - Abnormal Lab Findings Abnormal Lab Findings: Abnormal Lab Results 08/20/16 08/20/16 08/20/16 Range/Units 05:20 05:20 05:20 RBC 3.26 L (4.2-5.4) M/mm3 Hgb 9.4 L (12.5-16.0) gm/dL Hct 30.2 L (37.0-47.0) % MCHC 31.1 L (32-36) g/dl RDW 17.3 H (11.5-14.0) % Immature Granulocytes 4 H (0-1) PT 14.9 H (9.4-11.4) Seconds INR (Anticoag Therapy) 1.43 H (0.90-1.10) INR Chloride 96 L (97-106) mmol/L Anion Gap 15.2 H (6.8-13.8) mmol/L Est GFR (Non-Af Amer) 45 L (60-130) mL/min Random Glucose 131 H (70-110) mg/dL B-Natriuretic Peptide 18441 H (5-205) pg/mL - Exam Constitutional: Present: Alert, Oriented x3, Cooperative ENT Exam: Present: hearing grossly normal Neck: Present: supple Breasts: Present: Exam deferred Respiratory: Present: decreased breath sounds, rales - occcasional, No wheezing Abdomen: Present: Normal bowel sounds, soft, nontender, nondistended Extremity: Present: no calf tenderness, lower extremity edema - improved Cauti Physician Documentation - Urinary Catheter Management Urethral (Edge) Urethral Indwelling: Yes Date of Insertion: 08/18/16 Time of Insertion: 10:54 Assessment/Plan - Problems/Diagnosis (1) Acute on chronic diastolic CHF (congestive heart failure) Problem: Acute Narrative: continue with IV diuresis. (2) Elevated TSH Problem: Acute Narrative: deniseley amiodarone induced on top of her hypothyroidism (3) Elevated troponin Problem: Acute Narrative: likely due to increased demand ischemia (4) Atrial fibrillation Problem: Chronic Qualifiers: Atrial fibrillation type: unspecified Qualified Code(s): I48.91 - Unspecified atrial fibrillation Narrative: samara restart amiodarone (5) COPD (chronic obstructive pulmonary disease) Problem: Chronic Qualifiers: COPD type: unspecified COPD Qualified Code(s): J44.9 - Chronic obstructive pulmonary disease, unspecified (6) History of tricuspid valve repair Problem: Chronic (7) Hx of mitral valve replacement with tissue graft Problem: Chronic (8) Hyperlipidemia Problem: Chronic Qualifiers: Hyperlipidemia type: unspecified Qualified Code(s): E78.5 - Hyperlipidemia , unspecified (9) Hypertension Problem: Chronic Qualifiers: Hypertension type: essential hypertension Qualified Code(s): I10 - Essential (primary) hypertension (10) Hypothyroidism Problem: Chronic Qualifiers: Hypothyroidism type: acquired Qualified Code(s): E03.9 - Hypothyroidism, unspecified Narrative: levothyroxine increased. (11) PVD (peripheral vascular disease) Problem: Chronic (12) Pulmonary hypertension Problem: Chronic
[2016-08-20] MEDS: DOCUSATE SODIUM 100 MG CAPSULE PO SCH ×2 (09:26→21:55)
[2016-08-20] MEDS: FUROSEMIDE 10 MG/ML VIAL IV SCH ×2 (09:27→21:59)
[2016-08-20] MEDS: SILDENAFIL CITRATE 20 MG TABLET PO SCH ×3 (09:27→16:56)
[2016-08-20] MEDS: CLOPIDOGREL BISULFATE 75 MG TABLET PO SCH (09:27)
[2016-08-20] MEDS: DIGOXIN 0.125 MG TABLET PO SCH (09:27)
[2016-08-20] MEDS: SENNOSIDES 8.6 MG TABLET PO SCH ×2 (09:27→21:56)
[2016-08-20] MEDS: METOPROLOL TARTRATE 25 MG TABLET PO SCH ×2 (09:27→21:58)
--- NOTE | 2016-08-20 11:15 | ECHO ---
This report is available in the EMR
[2016-08-20] MEDS: AMIODARONE HCL 200 MG TABLET PO SCH (11:58)
[2016-08-20] MEDS ORDERED: WARFARIN SODIUM 3 MG TABLET PO SCH (17:00)
[2016-08-20] MEDS: ROSUVASTATIN CALCIUM 10 MG TABLET PO SCH (21:59)
[2016-08-21 06:13] LABS: Prothrombin Time (Patient) 16.8 Seconds (9.4-11.4)
[2016-08-21 06:15] LABS: INR 1.62 INR (0.90-1.10)
[2016-08-21] MEDS: LEVOTHYROXINE SODIUM 100 MCG TABLET PO SCH (06:25)
[2016-08-21] MEDS: ACETAMINOPHEN 325 MG TABLET PO PRN (06:36)
[2016-08-21] MEDS: PANTOPRAZOLE SODIUM 20 MG TABLET.DR PO SCH (06:37)
[2016-08-21 07:12] LABS: Anion Gap 10.3 mmol/L (6.8-13.8); BUN/Creatinine Ratio 11.3 (9.0-21.6); Calcium * 8.7 mg/dL (7.9-10.9); Carbon Dioxide 30.4 mmol/L (24-32.6); Estimated Creat Clear 35.3; Potassium 3.7 mmol/L (3.4-4.6)
[2016-08-21] MEDS: FUROSEMIDE 10 MG/ML VIAL IV SCH (09:07)
[2016-08-21] MEDS: METOPROLOL TARTRATE 25 MG TABLET PO SCH (10:06)
[2016-08-21] MEDS: SENNOSIDES 8.6 MG TABLET PO SCH (10:07)
[2016-08-21] MEDS: DOCUSATE SODIUM 100 MG CAPSULE PO SCH (10:07)
[2016-08-21] MEDS: DIGOXIN 0.125 MG TABLET PO SCH (10:07)
[2016-08-21] MEDS: CLOPIDOGREL BISULFATE 75 MG TABLET PO SCH (10:07)
[2016-08-21] MEDS: AMIODARONE HCL 200 MG TABLET PO SCH (10:07)
[2016-08-21] MEDS: SILDENAFIL CITRATE 20 MG TABLET PO SCH ×2 (10:08→13:37)
[2016-08-21 10:35] VITALS: BP 133/57
--- NOTE | 2016-08-21 12:25 | DS ---
(1) Acute on chronic diastolic CHF (congestive heart failure) Problem: Acute (2) Elevated TSH Problem: Acute (3) Elevated troponin Problem: Acute (4) Atrial fibrillation Problem: Chronic Qualifiers: Atrial fibrillation type: unspecified Qualified Code(s): I48.91 - Unspecified atrial fibrillation (5) COPD (chronic obstructive pulmonary disease) Problem: Chronic Qualifiers: COPD type: unspecified COPD Qualified Code(s): J44.9 - Chronic obstructive pulmonary disease, unspecified (6) History of tricuspid valve repair Problem: Chronic (7) Hx of mitral valve replacement with tissue graft Problem: Chronic (8) Hyperlipidemia Problem: Chronic Qualifiers: Hyperlipidemia type: unspecified Qualified Code(s): E78.5 - Hyperlipidemia , unspecified (9) Hypertension Problem: Chronic Qualifiers: Hypertension type: essential hypertension Qualified Code(s): I10 - Essential (primary) hypertension (10) Hypothyroidism Problem: Chronic Qualifiers: Hypothyroidism type: acquired Qualified Code(s): E03.9 - Hypothyroidism, unspecified (11) PVD (peripheral vascular disease) Problem: Chronic (12) Pulmonary hypertension Problem: Chronic Description of Stay: Manuela Camarena, is a 66 year old female with a PMH of anemia, diastolic HF, COPD, CAD, HTN, CAD, HLP, hypothyroidism, pulmonary HTN, and PVD who presented to the emergency room on 08/18/2016 with c/o severe dyspnea since 1 day PTS. this was associated with increasing lower extremity edema. Patient had recent history of single vessel bypass and mitral valve replacement and tricupid valve repair almost 4 weeks ago at the [facility] by Dr. Live. Open heart surgery occurred on 07/22/16 and consisted of 1) CABG x1 with SVG -->PDA, 2) mitral valve replacement with bovine valve, 3) tricuspid valve repair with ring and 4) harvest of the left great saphenous vein. Intraoperative RENAN showed significant RV and LV dysfunction with an ef of 35% with multiple areas of akinesis, including apex, septum and inferior wall, in addition pulmonary HTN and right heart strain. After open heart surgery, the patient heart rhythm was afib - to which she is on coumadin and amiodarone . Work up in the emergency room revealed an ekg that showed afib, RAD and IVCD, chest xray that shows an enlarged heart with mild pulmonary edema, BNP over 20, 000, TSH 22.884, troponin 0.290. The patient's cardiothoracic surgeon, Dr. Live, was contacted prior to admission and he verbalized his agreement to Dr. IVAN to admit to [facility]. Dr Live indicated he would like an echo in the am and if a pericardial effusion is present, the patient was to be transferred to [facility] at that time. Patient was admitted to the floor for CHF exacerbation and aggressively diuresed. Her Echo showed no pericardial effusion and her EF was 25-30%. Her HR was controlled for the most part. Her levothyroxine was increased to 100 mcg POqd. She ruled out for AMI. Her troponin was slightly increased likely due to increased demand ischemia. She is stable to be discharged to [facility] . Procedures Performed: none Discharge Disposition: Home self care Disposition: Home self-care Condition: Good Discharge Activity: Activity as tolerated Discharge Diet: Low salt, Low fat/chol Referrals: Av Hodges MD [Primary Care Provider] - Problem Oriented Discharge Instructions to Patient/Family: Heart Failure, Easy- to-Read Additional Patient Instructions (free text): Follow up with PCP Dr. Hodges in 1 week on August at 11:00 am. BMP,BNP,Prothrombin Time in one week. Prescriptions (Any new or edited meds): Amiodarone HCl [Cordarone] 200 mg PO DAILY #30 tablet Furosemide [Lasix] 40 mg PO BID #60 tablet Levothyroxine Sodium [Synthroid] 100 mcg PO DAILY@0700 #30 tablet Pantoprazole Sodium [Protonix] 20 mg PO BID@0700,2100 #60 tablet. Potassium Chloride [Klor-Con] 20 meq PO DAILY #30 packet Complete Home Medications List: Complete Home Medication List: ALPRAZolam [Xanax] 0.25 mg PO BID PRN 08/18/16 Acetaminophen [Tylenol] 650 mg PO Q4H PRN 08/18/16 Albuterol Sulfate 2 mg PO TID 08/18/16 Albuterol Sulfate [Proair Respiclick] 90 mcg IH Q6H PRN 08/18/16 Atorvastatin Calcium [Lipitor] 20 mg PO DAILY 08/18/16 Clopidogrel Bisulfate [Plavix] 75 mg PO DAILY 08/18/16 Digoxin [Lanoxin] 62.5 mcg PO DAILY 08/18/16 Docusate Sodium [Colace] 100 mg PO BID 08/18/16 HYDROcodone/ACETAMINOPHEN [[place] 5-325] 1 tab PO Q6H PRN 08/18/16 Metoprolol Tartrate [Lopressor] 6.25 mg PO BID 08/18/16 Sennosides 8.6 mg PO BID 08/18/16 Sildenafil Citrate [Revatio] 5 mg PO TID 08/18/16 Warfarin Sodium 2 mg PO DAILY 08/18/16 Amiodarone HCl [Cordarone] 200 mg PO DAILY #30 tablet 08/21/16 Furosemide [Lasix] 40 mg PO BID #60 tablet 08/21/16 Levothyroxine Sodium [Synthroid] 100 mcg PO DAILY@0700 #30 tablet 08/21/16 Pantoprazole Sodium [Protonix] 20 mg PO BID@0700,2100 #60 tablet. 08/21/16 Potassium Chloride [Klor-Con] 20 meq PO DAILY #30 packet 08/21/16 Amb Orders for Discharge: Basic Metabolic Panel Time Frame: 1 Week, Location: Determined By Patient BNP * Time Frame: 1 Week, Location: Determined By Patient Prothrombin Time Time Frame: 1 Week, Location: Determined By Patient
== END 2016-08-21 15:00 | disposition home or self-care (01) | DRG 293 ==
LOC: ER 09:01 → MS 11:27 → OBSVTOIN 08-20 07:53
PROVIDERS: ADMIT Family Medicine; ATTEND Internal Medicine
PROC: 0T9B70Z Drainage of Bladder with Drainage Device, Via Natural or Artificial Opening (ICD-10-PCS; principal; 2016-08-18)
PROC: B246ZZZ Ultrasonography of Right and Left Heart (ICD-10-PCS; 2016-08-19)
DX: I50.33 Acute on chronic diastolic (congestive) heart failure (principal); I48.91 Unspecified atrial fibrillation; J44.9 Chronic obstructive pulmonary disease, unspecified; I10 Essential (primary) hypertension; E78.5 Hyperlipidemia, unspecified; I27.2 Other secondary pulmonary hypertension; E03.9 Hypothyroidism, unspecified; I25.10 Atherosclerotic heart disease of native coronary artery without angina pectoris; Z95.4 Presence of other heart-valve replacement; Z79.02 Long term (current) use of antithrombotics/antiplatelets
CPT/HCPCS: 36415; 51702; 71010; 71020; 80048; 80053; 80162; 81001; 82550; 82553; 83880; 84443; 84484; 85007; 85025; 85610; 87081; 93005; 93306; 96374; 99284; G0378

== ENCOUNTER 2016-09-14 22:54 | Observation (INO) | payer MEDICAID ==
--- NOTE | 2016-09-14 23:35 | ERNOTE ---
Dyspnea - General Presenting Symptoms: shortness of breath Time Seen by Provider: 09/14/16 23:20 Source: patient Exam Limitations: no limitations - Immun/Allergies/Home Medications Immunizations: IMMUNIZATION HX Immunizations Up to Date Yes History of Influenza Vaccine No Hx Pneumococcal Vaccination No Allergies/Adverse Reactions: Allergies adhesive tape Allergy (Verified 08/18/16 09:13) amoxicillin Allergy (Verified 08/18/16 09:13) penicillin V Allergy (Verified 08/18/16 09:13) Home Medications: HOME MEDICATIONS ALPRAZolam [Xanax] 0.25 mg PO BID PRN 08/18/16 [Last Taken Unknown] Acetaminophen [Tylenol] 650 mg PO Q4H PRN 08/18/16 [Last Taken Unknown] Albuterol Sulfate 2 mg PO TID 08/18/16 [Last Taken Unknown] Albuterol Sulfate [Proair Respiclick] 90 mcg IH Q6H PRN 08/18/16 [Last Taken Unknown] Atorvastatin Calcium [Lipitor] 20 mg PO DAILY 08/18/16 [Last Taken Unknown] Clopidogrel Bisulfate [Plavix] 75 mg PO DAILY 08/18/16 [Last Taken Unknown] Digoxin [Lanoxin] 62.5 mcg PO DAILY 08/18/16 [Last Taken Unknown] HYDROcodone/ACETAMINOPHEN [[place] 5-325] 1 tab PO Q6H PRN 08/18/16 [Last Taken Unknown] Metoprolol Tartrate [Lopressor] 6.25 mg PO BID 08/18/16 [Last Taken Unknown] Sildenafil Citrate [Revatio] 5 mg PO TID 08/18/16 [Last Taken Unknown] Warfarin Sodium 2 mg PO DAILY 08/18/16 [Last Taken Unknown] Amiodarone HCl [Cordarone] 200 mg PO DAILY #30 tablet 08/21/16 [Last Taken Unknown] Furosemide [Lasix] 40 mg PO BID #60 tablet 08/21/16 [Last Taken Unknown] Levothyroxine Sodium [Synthroid] 100 mcg PO DAILY@0700 #30 tablet 08/21/16 [ Last Taken Unknown] Potassium Chloride [Klor-Con] 20 meq PO DAILY #30 packet 08/21/16 [Last Taken Unknown] Famotidine [Pepcid] 20 mg PO BID 09/14/16 [Last Taken Unknown] - History of Present Illness Narrative: Patient was discharged from [facility] this morning after carotid surgery a few days ago and is coming tonight for increasing shortness of breath over the last two days. On 07/22/16 she had a CABG and valve repair, has been in afib since after surgery. She was seen in our ER after that discharge and admitted for acute CHF and discharged after IV diuretic treatment. Review of Systems - Review of Systems Constitutional: Present: recent illness. Absent: fever, chills Respiratory: Present: See HPI, shortness of breath Cardiology: Absent: chest pain, palpitations Gastrointestinal/Abdominal: Absent: nausea, vomiting, abdominal pain Genitourinary: Present: no symptoms reported Musculoskeletal: Absent: back pain, neck pain Neurological: Present: weakness - generalized. Absent: headache, numbness - Patient's Past Medical History Patient History - Medical: Anemia, Anxiety, Fibromyalgia, Hypothyroidism, Osteoarthritis Patient History - Cardiac/Respiratory: Atrial Fibrillation, Arrhythmias, Cardiac Arrest, Cardiomyopathy, Coronary Heart Disease, CHF, COPD, Hypertension , Hyperlipidemia, Myocardial Infarction, Valvular Heart Disease, Other Patient History - Cancer: No Hx of Cancer Patient History - Surgical Procedures: Appendectomy, Coronary Bypass Surgery, Hysterectomy, Other, Hernia Repair Patient History - Other: None - Family History Mother Family History - Cardiac/Respiratory: Aneurysm, Cardiac Arrest, Myocardial Infarction Family History - Cancer: Other Father Family History - Medical: , No pertinent hx - Social History Living Situations: spouse Psych History: No pertinent hx Smoking Status: Former smoker Alcohol Use: none Drug Use: none - Immunizations Immunizations Up to Date: Yes Hx Pneumococcal Vaccination: No History of Influenza Vaccine: No Physical Exam - Physical Exam General Appearance: Present: wd/wn, alert, no apparent distress Eye Exam: PERRL: bilateral Ears, Nose, Throat: Present: normal ENT inspection, normal pharynx Neck: Present: other - scar over right carotid healing well Respiratory: Present: no respiratory distress Cardiovascular/Chest: Present: regular rate, rhythm, no murmur Gastrointestinal/Abdominal: Present: normal bowel sounds, nondistended, soft, other - Gtube in place Extremity Exam: Present: extremity edema - bilateral Neurological Exam: Present: alert, oriented, normal mood/affect Skin Exam: Present: normal color, warm/dry ED Progress - Results and Orders Patient's Lab Results:: I have reviewed the patient's lab results. - Vital Signs Patient's Vital Signs:: I have reviewed the patient's vital signs. Vital Signs: Vital Signs 09/14/16 23:01 Temperature 36.3 C L Pulse Rate 69 Respiratory 18 Rate Blood Pressure 121/60 O2 Sat by Pulse 95 Oximetry - EKG EKG: atrial fibrillation, LBBB, unchanged from - 08/18/2016, other - frequnt PVCs EKG read: Interp. by me - X-Ray X-Ray #1 X-Ray: chest - enlarged heart, no acute changes compared to recent CXR Interpretation: Interp. by me - Progress/Reassessment Chief Complaint: Dyspnea Progress Note-Subjective: 09/15/16 00:30 discussed test results with patient and family, patient is stable and does not want to be transferred to the [facility], she was successfully diuresed here a month ago with similar symptoms 09/15/16 00:41 discussed with Maria Elena Naranjo (NRP), would like to get a two hour troponin in the ER and only admit patient if troponin is not rising 09/15/16 01:05 discussed plan with patient and family, 09/15/16 01:[address] Crow, will wait for for repeat to troponin to decide on admission 09/15/16 02:[address] Crow, troponin coming down, okay to admit, give second dose of lasix 60mg IV, spironolactone 100mg po, and KCL Departure Clinical Impression: Acute CHF Qualifiers: Congestive heart failure type: unspecified congestive heart failure type Qualified Code(s): I50.9 - Heart failure, unspecified - Departure Disposition: [facility] Condition: Good
--- OUTSIDE RECORDS SUMMARY | 2016-09-14 23:44 | XMS REPORT | Continuity of Care Document ---
:1950 Author Organization [facility] ([facility]) Address [address] [place] [address] Phone [phone] Care Team Providers Name Role Phone Lidadeliorosa mAv Primary Care Provider [phone] Source Comments This disclosure is being made pursuant to the Care Everywhere program, applicable federal and state laws, and may not contain all informaitonavailable regarding this patient.[facility] ([facility]) Active Allergies and Adverse Reactions Allergen Noted Date Severity Reactions Comments Amoxicillin 04/10/2016 Nausea & Vomiting Penicillin 01/22/2016 Urticaria (Hives) Current Medications Prescription Sig. Disp. Refills Start End Date Status Date albuterol 90 Use 2 Puffs by Active mcg/Actuation inhalation every 6 inhaler hours as needed. albuterol 2 mg Take 2 mg by mouth Active tablet 3 times daily. HYDROcodone-acetam Take 1 tablet by 60 tablet 0 Active inophen 5-325 mg mouth every 6 7 per tablet hours as needed for pain. ALPRAZolam 0.25 mg Take 1 tablet 60 tablet 0 Active tablet (0.25 mg total) by 7 mouth 2 times daily as needed. enoxaparin Inject 120 mg 4 mL 0 Active (LOVENOX) 120 subcutaneously 7 mg/0.8 mL daily. Your first injection syringe injection will be 08/30/2016 and your last injection will be 09/03/2016. amiodarone 200 mg Take 2 tablets 120 tablet 1 Active tablet (400 mg total) 7 through gastric tube 2 times daily. atorvastatin 20 mg Take 1 tablet (20 30 tablet 11 Active tablet mg total) through 7 gastric tube every evening. clopidogrel 75 mg Take 1 tablet (75 30 tablet 6 Active tablet mg total) through 7 gastric tube daily. digoxin 125 mcg Take 0.5 tablets 15 tablet 1 Active tablet (62.5 mcg total) 7 through gastric tube daily. docusate 100 mg Take 1 capsule 60 capsule 0 Active capsule (100 mg total) 7 through gastric tube 2 times daily as needed. famotidine 20 mg Take 1 tablet (20 60 tablet 3 Active tablet mg total) through 7 gastric tube 2 times daily. furosemide 40 mg Take 1 tablet (40 120 tablet 3 Active tablet mg total) through 7 gastric tube 2 times daily. Take 60mg twice daily by mouth // and 40mg twice daily //Fri/Fri warfarin 2 mg Take 1 tablet (2 30 tablet 1 Active tablet mg total) through 7 gastric tube daily. sildenafil 20 mg Take 0.25 tablets 45 tablet 3 Active tablet (5 mg total) 7 through gastric tube 3 times daily. sennosides 8.6 mg Take 1 tablet (8.6 60 tablet 1 Active tablet mg total) through 7 gastric tube 2 times daily as needed. metoPROLol Take 0.25 tablets 60 tablet 1 Active tartrate 25 mg (6.25 mg total) 7 tablet through gastric tube every 12 hours. levothyroxine 75 Take 1 tablet (75 30 tablet 3 Active mcg tablet mcg total) through 7 gastric tube every morning before breakfast. acetaminophen 325 Take 1 tablet (325 60 tablet 4 Active mg tablet mg total) through 7 gastric tube every 4 hours as needed. atorvastatin 20 mg Take 20 mg by 09/14/19 Discontinued tablet mouth every 17 evening. clopidogrel 75 mg Take 75 mg by 09/14/19 Discontinued tablet mouth daily. 17 levothyroxine 75 Take 75 mcg by 09/14/19 Discontinued mcg tablet mouth every 17 morning before breakfast. acetaminophen 325 Take 325 mg by 09/14/19 Discontinued mg tablet mouth every 4 17 hours as needed. docusate 100 mg Take 100 mg by 09/14/19 Discontinued capsule mouth 2 times 17 daily as needed. amiodarone 200 mg Take 2 tablets 120 tablet 1 09/14/19 Discontinued tablet (400 mg) twice 7 17 daily x 10 days, then take 1 tablet (200 mg) daily thereafter. digoxin 125 mcg Take 1/2 tablet 15 tablet 1 09/14/19 Discontinued tablet (62.5 mcg total) 7 17 by mouth daily. furosemide 40 mg Take 1 tablet (40 60 tablet 1 09/06/19 Discontinued tablet mg total) by mouth 7 17 2 times daily. metoPROLol Take 1/4 tablet 60 tablet 1 09/14/19 Discontinued tartrate 25 mg (6.25 mg total) by 7 17 tablet mouth every 12 hours. sennosides 8.6 mg Take 1 tablet (8.6 60 tablet 1 09/14/19 Discontinued tablet mg total) by mouth 7 17 2 times daily as needed. sildenafil 20 mg Take 1/4 tablet (5 45 tablet 3 09/14/19 Discontinued tablet mg total) by mouth 7 17 3 times daily. warfarin 2 mg Take 1 tablet (2 30 tablet 1 09/14/19 Discontinued tablet mg total) by mouth 7 17 daily. INV clopidogrel 75 09/06/19 Discontinued mg or placebo 7 17 (POINT STUDY) tablet ALPRAZolam 0.25 mg 09/05/19 Discontinued tablet 7 17 levothyroxine 09/06/19 Discontinued (TIROSINT) 75 mcg 7 17 capsule pantoprazole 20 mg Take 20 mg by 09/14/19 Discontinued EC tablet mouth daily. 17 furosemide 40 mg Take 60mg twice 09/14/19 Discontinued tablet daily by mouth 17 Friday, Friday, Friday and 40mg twice daily the other days of the week. Active Problems Patient Care Coordination Note This [...] morning, but cardiac workup was negative, and sh e reports that it is identical to long-standing known rotator cuff pain. She shows no neurologic changes off pressors while amublating around the unit Problem Noted Date Wound infection after surgery 09/04/2016 S/P MVR (mitral valve replacement) 08/02/2016 Overview: [...] Recent Encounters Date Type Specialty Providers Description 03/14/2017 [facility] Radiology Encounter 09/13/2016 Telephone Otolaryngology Michelet Cabral Chief Comp: Shena Blum MD 09/12/2016 Surgery Radiology Darrel Murray IR PERC GASTROSTOMY MD TUBE PLACEMENT 09/09/2016 [facility] Heart and Vascular Kareem, Chief Comp: Patient Encounter MD Ricky Reported Reason For Visit 09/09/2016 [facility] Heart and Vascular Fabian, Chief Comp: Patient Encounter Chuy Jeronmio MD Reported Reason For Kareem, Visit MD Ricky 09/06/2016 Office Visit Heart and Vascular Default, Other Dx: S/P MVR ( mitral Billg - Defo valve replacement) Calos, (Primary Dx) MD Shannon 09/04/2016 [facility] Neurology Migdalia Sloan, Chief Comp: Patient Encounter MD Reported Reason For Kareem, Visit MD Ricky 09/04/2016 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 08/26/2016 Anesthesia Event General Surgery Vicki Bean RN 08/18/2016 Hospital Patient Services Encounter 08/15/2016 [facility] Heart [facility], Dx: Wound infection Encounter MD Ricky after surgery, initial encounter 08/15/2016 [facility] Heart [facility], Chief Comp: Patient Encounter MD Ricky Reported Reason For Visit 08/15/2016 [facility] Heart [facility] Vascular [facility], Chief Comp: Patient Encounter MD Ricky Reported Reason For Visit 08/15/2016 Office Visit Srg Vascular Kareem, Dx: Wound infection MD Ricky after surgery, initial encounter (Primary Dx) 08/15/2016 Ancillary Orders Srg Vascular Barb, Dx: Wound infection Marques Almazan DDS after surgery, initial encounter (Primary Dx) 08/02/2016 Pharmacy Visit 08/02/2016 Telephone Isrrael, Chief Comp: Marco Byrd CPhT Prior Authorization 08/01/2016 [facility] Neurology Jamaica Gonzalez Chief Comp: Patient Encounter MD Sherman Reported Reason For Visit 08/01/2016 Ophth Exam Ophthalmology - Loyd Soler MD 07/22/2016 [facility] Heart and Vascular Calos, Chief Comp: Patient Encounter MD Shannon Reported Reason For Visit 07/22/2016 Surgery General Surgery Calos, MITRAL and TRICUSPID MD Shannon VALVE REPLACEMENT REPAIR 07/19/2016 [facility] Heart and Vascular Calos, Chief Comp: Patient Encounter MD Shannon Reported Reason For Visit 07/19/2016 [facility] Cardiology Ramiro Martinez Chief Comp: Patient Encounter MD Richard Reported Reason For Visit 07/19/2016 Orders/Notes Heart and Vascular Shannon Live MD 07/09/2016 Office Visit Heart and Vascular Calos, Dx: Mitral valve MD Shannon disorder 07/09/2016 [facility] Anesthesiology Default, Other Dx: Hematoma Encounter Billg - Defo complicating a Calos, procedure (Primary MD Shannon Dx) 07/09/2016 [facility] Heart and Vascular Jeni, Chief Comp: Patient Encounter MD Casi Reported Reason For Visit 07/09/2016 [facility] Heart and Vascular Jeni, Dx: Rheumatic mitral Encounter MD Casi regurgitation 07/09/2016 [facility] Heart and Vascular [place], Dx: Rheumatic mitral Encounter MD Casi regurgitation 07/09/2016 [facility] Heart and Vascular Default, Other Chief Comp: Patient Encounter Billg - Defo Reported Reason For Kareem, Visit MD Ricky 07/09/2016 Office Visit Sr Vascular Kareem, Dx: 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 (Primary Dx) 07/05/2016 Orders/Notes Heart and Vascular Petra Swann, Dx: Mitral valve STULL HEWER disorder (Primary Dx) 07/04/2016 Office Visit Sr Vascular Kareem, Dx: Carotid artery MD Ricky stenosis, asymptomatic, right (Primary Dx) 07/04/2016 [facility] Radiology Joaquín Enciso, Dx: Pre-procedure Encounter lab exam (Primary Dx) 07/04/2016 Office Visit Pathology Kareem, Dx: Pre-procedure MD Ricky lab exam Lab Services, Irl 06/20/2016 [facility] Heart and Vascular Kareem, Chief Comp: Patient Encounter MD Ricky Reported Reason For Visit 06/20/2016 [facility] Heart and Vascular Kareem, Dx: Carotid Encounter MD Ricky stenosis, bilateral 06/20/2016 Office Visit Srg Vascular Kareem, Dx: Stenosis of MD Ricky right carotid artery (Primary Dx) Social History Tobacco Use Types Packs/Day Years Used Date Former Smoker Cigarettes Quit: 10/06/2015 Smokeless Tobacco: Never Used Tobacco Cessation:Counseling Given: Yes Comments: Alcohol Use Drinks/Week oz/Week Comments No Last Filed Vital Signs Vital Sign Reading Time Taken Blood Pressure 116/52 09/14/2016 7:34 AM CDT Pulse 65 09/12/2016 11:48 PM CDT Temperature 35.5 C (95.9 F) 09/14/2016 7:34 AM CDT Respiratory Rate 16 09/14/2016 7:45 AM CDT Height 1.6 m (5' 2.99") 09/07/2016 1:40 AM CDT Weight 80.7 kg (177 lb 14.6 oz) 09/09/2016 10:00 PM CDT Body Mass Index 31.52 09/09/2016 10:00 PM CDT Oxygen Saturation 99% 09/14/2016 7:34 AM CDT Plan of Care Date Type Specialty Providers Description 09/27/2016 Appointment Heart and Vascular Default, Other Billg Chief Comp: Patient - Defo Reported Reason For [address] [facility] [place] [address] [phone] (Fax) 09/27/2016 Appointment Heart and Vascular Default, Other Billg - Defo [address] [place] [address] [phone] (Fax) Chief Comp: Patient Shannon Live MD [address] [place] [address] [phone] (Fax) Reported Reason For Visit 11/08/2016 Appointment Vascular Surgery Ricky Serna MD [address] [place] [address] [phone] (Fax) Chief Comp: Patient Casi Ngo MD [address] [place] [address] [phone] (Fax) Reported Reason For Visit 03/14/2017 Surgery Radiology Radiologist, Rad IR PERC GASTROSTOMY Invasive TUBE CHECK & CHANGE [address] [place] [address] [phone] (Fax) Health Maintenance Due Date Last Done Comments HCV Screening 1950 Hepatitis B Vaccine (1 of 3 - Primary 1950 Series) Tdap Vaccine 01/06/1963 Td Vaccine 01/06/1970 Pneumococcal Vaccine (1 of 1 - PPSV23) 01/06/1971 Cervical Cancer Screening 01/06/1982 Mammogram 1992 Colonoscopy 01/06/2002 Zoster Vaccine 2012 Influenza Vaccine: Seasonal (Season Ended) 2016 Lipid Disorder Screening 07/09/2021 07/09/2016, 03/14/2016 Procedures from Last 3 Months Procedure Name Priority Date/Time Associated Comments Diagnosis ABSTRACTED BY BILLING Routine 09/07/2016 9:40 Wound infection Results for this STAFF AM CDT after surgery, procedure are in initial encounter the results section. Resection of infected 09/04/2016 12:30 Wound infection Right Carotid Artery PM CDT after surgery, status post initial encounter carotidendarterectomy, replacement with interposition graft from right common carotid artery to right internal carotic artery using right autologous saphenous vein. Case Notes Right Cervical Wound Exploration; Possible Carotid artery bypass ABSTRACTED BY Routine 07/25/2016 8:08 Mitral valve disorder Results for this BILLING STAFF PM [employer] 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 S/P mitral valve repair S/P tricuspid valve repair TSG OR CASE Routine 07/23/2016 7:44 Rheumatic mitral Results for this PM [employer] MARK[employer]GER regurgitation procedure are in the results section. 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 Component Value Range PT (Prothrombin Time) 15(H) 9-12 secs INR 1.5 <4.0 Specimen Blood PHOSPHORUS (09/14/2016 6:21 AM)Only the most recent of18 resultswithin the time period is included. Component Value Range Phosphorus 2.6Comment:New reference range installed 03/07/15. 2.5-4.5 mg/dL Specimen Blood MAGNESIUM (09/14/2016 6:21 AM)Only the most recent of33 resultswithin the time period is included. Component Value Range Magnesium 2.4 1.5-2.9 mg/dL Specimen Blood CBC (COMPLETE BLOOD COUNT) (09/14/2016 6:21 AM)Only the most recent of20 resultswithin the time period is included. Component Value Range WBC Count 6.6 3.7-10.5 K/MM3 RBC Count 3.42(L) 4.00-5.20 M/MM3 Hemoglobin 9.2(L) 11.9-15.5 g/dL Hematocrit 32(L) 35-47 % MCV (Mean Corpuscular Volume) 93 82-99 FL MCH (Mean Corpuscular Hemoglobin) 27 25-35 PG MCHC (Mean Corpuscular Hemoglobin Concentration) 29(L) 32-36 % Platelet Count 188 150-400 K/MM3 MPV (Mean Platelet Volume) 9.8 9.4-12.3 FL RBC Dist Width-STD 71.2(H) 36.4-46.3 FL RBC Distrib Width 21.2(H) 9.0-14.5 % Nucleated RBC 1 /100 WBC Specimen Whole Blood BASIC METABOLIC PANEL W/ CALCIUM (CHEM 8) (09/14/2016 6:21 AM)Only the most recent of23 resultswithin the time period is included. Component Value Range Sodium 142 135-145 mEq/L Potassium 4.0 3.5-5.0 mEq/L Chloride 103 95-107 mEq/L CO2 24 22-29 mEq/L BUN 38(H) 10-20 mg/dL Creatinine 1.1(H)Comment: 0.5-1.0 mg/dL Creatinine switched to enzymatic method on 10/02/2010.GFR equation switched to IDMS-traceable MDRD equation on 10/02/2010. Calculated GFR values are not valid in clinical settings where serum creatinine is changing. Glucose 166(H)Comment: 65-99 mg/dL The Expert Committee on the Diagnosis and Classification of Diabetes has defined impaired fasting glucose as greater than or equal to 100 mg/dL but less than 126 mg/dL.(Diabetes Care 28 (Suppl 1)S41,2005) Calcium 8.8 8.5-10.5 mg/dL Anion Gap 15 mEq/L Calculated GFR 50(L) >60 mL/min/1.73 m2 Specimen Blood BLOOD GLUCOSE, BEDSIDE (09/14/2016 5:59 AM)Only the most recent of122 resultswithin the time period is included. Component Value Range Glucose, Accu-Chek 166(H) 65-99 mg/dL Specimen Blood, capillary IR PERC GASTROSTOMY TUBE PLACEMENT (09/12/2016 4:26 PM) Impressions IMPRESSION: 1. Successful placement of a 12 Portuguese Rodarte-Ogelsby locking pigtail gastrostomy tube with no immediate complications. PLAN: 1. Patient to return to floor. 2. New gastrostomy catheter to gravity drainage for 24 hours. 3. If there are no complications, tube feedings will begin after 24 hours. The Dobbhoff tube is to remain in place until the patient is tolerating G-tube feedings. Narrative PROCEDURE: Gastrostomy catheter placement INDICATIONS: Dysphagia ACCESS: Left upper abdomen CONTRAST:10 ml Isovue 370 ANESTHESIA: 1% lidocaine MEDS:1 mg Versed IV, 50 mcg Fentanyl IV, 1 g Rocephin IV, 1 mg glucagon IV PHYSICIANS: Dr. Murray STATE ASSESSED PROPERTIES DIRECTOR: Dr. Kang PULSES:Intact bilaterally COMPLICATIONS:None immediate BLOOD LOSS:Minimal FLUORO TIME:3.2 min FLUORO DOSE:26 mGy SEDATION START TIME: 1555 SEDATION STOP TIME: 1626 PROCEDURE: The patient was identified.After the risks and benefits of the procedure were discussed with the Patient, an informed written consent was obtained.The patient was then brought back to Interventional suite and placed supine on the table.A time out was performed.The patient was then prepped and draped in the normal sterile fashion. Under fluoroscopy guidance, air was injected into the stomach through the existing nasogastric tube. Next, a needle from a Mallinckrodt gastrostomy tube set was advanced into the stomach. The needle was removed and the catheter was left in place. Contrast was injected demonstrating good placement within the stomach. An Amplatzguidewire was advanced to the gastric lumen. The pericatheteral skin and soft tissues were dilated using a 8, 10 and 12 F soft dilators. A 12 Portuguese Rodarte-Ogelsby locking pigtail catheter was advanced into the gastric lumen and locked in place. The catheter was sutured to the skin with 2-0 Prolene. A small amount of contrast was injected and a post procedural sinogram was done demonstrating the catheter to be in good position within the gastric lumen. Procedure done under fluoroscopic guidance. The patient tolerated the procedure well. There were no complications. Dr. Murray performed the entire procedure. Procedure Note Donavon, Incoming Imaging Results - FriSep 13, 2016 2:19 PM CDT PROCEDURE: Gastrostomy catheter placement INDICATIONS: Dysphagia ACCESS: Left upper abdomen CONTRAST: 10 ml Isovue 370 ANESTHESIA: 1% lidocaine MEDS: 1 mg Versed IV, 50 mcg Fentanyl IV, 1 g Rocephin IV, 1 mg glucagon IV PHYSICIANS: Dr. Murray STATE ASSESSED PROPERTIES DIRECTOR: Dr. Kang PULSES: Intact bilaterally COMPLICATIONS: None immediate BLOOD LOSS: Minimal FLUORO TIME: 3.2 min FLUORO DOSE: 26 mGy SEDATION START TIME: 1555 SEDATION STOP TIME: 1626 PROCEDURE: The patient was identified. After the risks and benefits of the procedure were discussed with the Patient, an informed written consent was obtained. The patient was then brought back to Interventional suite and placed supine on the table. A time out was performed. The patient was then prepped and draped in the normal sterile fashion. Under fluoroscopy guidance, air was injected into the stomach through the existing nasogastric tube. Next, a needle from a Mallinckrodt gastrostomy tube set was advanced into the stomach. The needle was removed and the catheter was left in place. Contrast was injected demonstrating good placement within the stomach. An Amplatz guidewire was advanced to the gastric lumen. The pericatheteral skin and soft tissues were dilated using a 8, 10 and 12 F soft dilators. A 12 Portuguese Rodarte-Ogelsby locking pigtail catheter was advanced into the gastric lumen and locked in place. The catheter was sutured to the skin with 2-0 Prolene. A small amount of contrast was injected and a post procedural sinogram was done demonstrating the catheter to be in good position within the gastric lumen. Procedure done under fluoroscopic guidance. The patient tolerated the procedure well. There were no complications. Dr. Murray performed the entire procedure. IMPRESSION IMPRESSION: 1. Successful placement of a 12 Portuguese Rodarte-Ogelsby locking pigtail gastrostomy tube with no immediate complications. PLAN: 1. Patient to return to floor. 2. New gastrostomy catheter to gravity drainage for 24 hours. 3. If there are no complications, tube feedings will begin after 24 hours. The Dobbhoff tube is to remain in place until the patient is tolerating G-tube feedings. PTT (PARTIAL THROMBOPLASTIN TIME) (09/11/2016 6:27 AM)Only the most recent of19 resultswithin the time period is included. Component Value Range PTT 27 22-[address] ABDOMEN& PELVIS W CONTRAST ([id number]) (09/10/2016 12:05 PM) Impressions Impression: 1. Extensive atherosclerotic disease. 2. Bolus timing of this exam suggests poor cardiac output. 3. Small volume deep pelvic ascites. 4. Small left, moderate right pleural effusion. Narrative Procedure: CT ABDOMEN & PELVIS W CONTRAST ([id number]) Clinical Indication: Needs PEG tube, evaluate anatomy. Technique: CT exam of the abdomen and pelvis with contrast is performed following the uneventful administration of97 cc Isovue-370 IV contrast. While the contrast phase was timed to the venous, due to poor cardiac output, the result imaging is early arterial phase. Comparison: No prior exam for comparison. Findings: Moderate right pleural effusion, small left pleural effusion. Coronary calcifications. Weighted feeding tube passes into the gastric antrum. Extensive atherosclerotic calcification of the low thoracic aorta with large irregular shaped plaque and mural thrombus. Within the limits of the bolus timing, normal appearance to the liver and spleen. Normal pancreas, adrenal glands. Small cysts right kidney. Lower pole exophytic cysts left kidney. Atherosclerotic calcification of the abdominal aorta with disease extending into the branch vessels. Moderate disease at the origin of the celiac and proximal SMA. Hepatic artery arises from the SMA. Single small renal arteries bilaterally. Patent MAGNUS. Scattered small retroperitoneal nodes, no lymphadenopathy. Stomach is collapsed. Stomach is located caudal to the transverse colon and there is a large window present overlying the stomach to the left of the liver edge. Normal small bowel and colon. Small volume ascites. Absent uterus. Ovaries not identified. Bladder collapsed. Degenerative changes of the spine. No destructive bone lesions. Procedure Note Donavon, Incoming Imaging Results - Tue Sep 10, 2016 2:38 PM CDT Procedure: CT ABDOMEN & PELVIS W CONTRAST ([id number]) Clinical Indication: Needs PEG tube, evaluate anatomy. Technique: CT exam of the abdomen and pelvis with contrast is performed following the uneventful administration of 97 cc Isovue-370 IV contrast. While the contrast phase was timed to the venous, due to poor cardiac output, the result imaging is early arterial phase. Comparison: No prior exam for comparison. Findings: Moderate right pleural effusion, small left pleural effusion. Coronary calcifications. Weighted feeding tube passes into the gastric antrum. Extensive atherosclerotic calcification of the low thoracic aorta with large irregular shaped plaque and mural thrombus. Within the limits of the bolus timing, normal appearance to the liver and spleen. Normal pancreas, adrenal glands. Small cysts right kidney. Lower pole exophytic cysts left kidney. Atherosclerotic calcification of the abdominal aorta with disease extending into the branch vessels. Moderate disease at the origin of the celiac and proximal SMA. Hepatic artery arises from the SMA. Single small renal arteries bilaterally. Patent MAGNUS. Scattered small retroperitoneal nodes, no lymphadenopathy. Stomach is collapsed. Stomach is located caudal to the transverse colon and there is a large window present overlying the stomach to the left of the liver edge. Normal small bowel and colon. Small volume ascites. Absent uterus. Ovaries not identified. Bladder collapsed. Degenerative changes of the spine. No destructive bone lesions. IMPRESSION Impression: 1. Extensive atherosclerotic disease. 2. Bolus timing of this exam suggests poor cardiac output. 3. Small volume deep pelvic ascites. 4. Small left, moderate right pleural effusion. [facility] CAROTID DUPLEX SCAN (UNILATERAL) (09/09/2016 3:40 PM)Only the most recent of3 resultswithin the time period is included. Component Value Range [facility] VASC RIGHT VERTEBRAL PSV 157 cm/sec [facility] VASC RIGHT VERTEBRAL PEDV 71 cm/sec FL COOKIE SWALLOW (OPMS) (09/09/2016 2:33 PM) Impressions Findings and impression: 1.Penetration with all consistencies administered.This appears to be due to either failure of relaxation of the upper esophageal sphincter, pharyngeal weakness, or a mixture of both. 2.Aspiration with nectar think liquids with spontaneous weak cough 3. Multiple swallows were required for passage of the boluses. 4. Small pyriform stasis. Please see the speech pathology note for further delineation of these findings and therapeutic recommendations. Narrative Procedure: FL COOKIE SWALLOW (OPMS) Clinical indication: Interposition graft of the right carotid artery. Ordering diagnoses are dysphagia, oropharyngeal phase and one infection after surgery. Technique: Video cookie swallow exam performed in conjunction with speech pathology utilizing various consistencies of barium. Fluoroscopy time: 2 minutes 14 seconds. Procedure Note Donavon, Incoming Imaging Results - [facility] Sep 12, 2016 3:07 PM CDT Procedure: FL COOKIE SWALLOW (OPMS) Clinical indication: Interposition graft of the right carotid artery. Ordering diagnoses are dysphagia, oropharyngeal phase and one infection after surgery. Technique: Video cookie swallow exam performed in conjunction with speech pathology utilizing various consistencies of barium. Fluoroscopy time: 2 minutes 14 seconds. IMPRESSION Findings and impression: 1. Penetration with all consistencies administered. This appears to be due to either failure of relaxation of the upper esophageal sphincter, pharyngeal weakness, or a mixture of both. 2. Aspiration with nectar think liquids with spontaneous weak cough 3. Multiple swallows were required for passage of the boluses. 4. Small pyriform stasis. Please see the speech pathology note for further delineation of these findings and therapeutic recommendations. HEPATIC FUNCTION PANEL (09/09/2016 6:18 AM) Component Value Range Albumin 3.7 3.4-4.8 g/dL ALP 119(H) 35-104 U/L Bilirubin Total 1.0 <=1.2 mg/dL Bilirubin, Direct 0.5(H) 0.0-0.2 mg/dL AST 127(H)Comment: 0-32 U/L Adult reference ranges updated on 04/20/13 at 830am ALT 86(H)Comment: 0-33 U/L The upper limit of normal [...] if applicable, data from other diagnostic tests. Total Protein 7.1 6.0-8.0 g/dL Specimen Blood HEMOGLOBIN (09/07/2016 5:21 PM)Only the most recent of3 resultswithin the time period is included. Component Value Range Hemoglobin 8.7(L) 11.9-15.5 g/dL Specimen Whole Blood HEMATOCRIT (09/07/2016 5:21 PM)Only the most recent of3 resultswithin the time period is included. 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 Postoperative Diagnosis: * Wound infection after surgery, initial encounter [T81.4XXA] Surgeon(s): * Ricky Serna MD - Primary * Adams Nelson MD - Fellow Findings: See below Estimated Blood Loss: 300 ml Specimens: ID Type Source Tests Collected by Time Destination 1 : 1) Right common carotid artery Surgical Pathology Surgical Pathology Specimen SURGICAL PATHOLOGY EXAM Ricky Serna MD 09/04/2016 1841 A : Right neck wound Microbiology Abscess, Swab (Suboptimal) ANAEROBIC CULTURE, AEROBIC CULTURE, ROUTINE Ricky Serna MD 09/04/2016 1532 Anesthesia:General Urine Output:475 ml Fluid Replacement: lactated ringers (LR) continuous infusion: 400 ml sodium chloride 0.9% continuous infusion: 600 ml Anticoagulation: HEParin 1000 unit/mL injection: 7000 Units Operative Report Completion: Indication: 66 yoF who previously underwent a right carotid endarterectomy with bovine patch angioplasty.Immediate post op course was complicated by hematoma requiring emergent evacuation.She subsequently developed a chronically draining wound with intermittent purulent discharge.Further complicating the situation, 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 Description: The patient was brought to the operating room, positioned supine, and placed under general anesthesia.The right neck was prepped and draped in the usual sterile fashion and a timeout was performed.The previous right neck incision was opened.Sunny pus was encountered and this was sent for culture.The sternocleidomastoid muscle was mobilized and retracted laterally. The internal jugular vein was identified, mobilized and retracted laterally.The common carotid artery was dissected and controlled near the clavicle, which was relatively free of scar tissue. Then the distal internal carotid artery was localized with doppler and dissected in a place where it was relatively free of scar.A longitudinal incision was made over the right groin.The great saphenous vein was harvested from the saphenofemoral junction to the mid thigh.Side branches were ligated. The valves were lysed with a Larky valvulotome.The vein configured non reversed and was placed over a Sundt internal carotid shunt.The patient was systemically heparinized. Internal and common carotids were clamped.The internal carotid was transected.The distal end of the shunt was placed into the distal end of the ICA and secured with a Prince.Then the common carotid was transected and the proximal end of the shunt was inserted and secured with a Prince.There were no EEG changes during clamping.Then an end-to-end anastomosis between the distal end of the vein graft and the distal ICA was performed with a 6-0 prolene.Next an end-to-end anastomosis between the proximal end of the vein graft and the proximal common carotid was performed with 6-0 prolene.Prior to completing the proximal suture line, the clamps were re-applied and the shunt was removed.The anastomosis was completed and the clamps were released.There was a strong doppler signal throughout the vein graft and past the distal anastomosis.We then turned attention to the infected [place] carotid.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 The wound was irrigated thoroghouly.Hemostasis was achieved. The sternoleidomastoid muscle was used to cover the vein graft by using 3-0 vicryl sutures.The skin was closed with 3-0 nylon vertical mattress sutures.A sterile dressing was applied.The patient was awaken from anesthesia.She was neuro intact on the left arm and leg.She had tongue deviation to the right and hoarseness.She was taken to CVICU in stable condition. Dr. Serna was present for the procedure. Post-Op Plan: Drains: None Antibiotics: Therapeutic: Reason Neck infection; Intended Duration TBD Anticoagulation: Not indicated Post Op Studies/Consults: duplex Intended Discharge: Unknown Intended Outpatient Follow-Up: Other TBD Intended Outpatient Studies: duplex Other: Not Applicable Adams Nelson MD Vascular surgery resident Pager [phone] C. DIFFICILE TOXIN SCREEN (09/07/2016 7:03 AM) Component Value Range C. Difficle GDH Negative Negative C. Difficile Toxin NegativeComment: Negative Negative for the presence of C. difficile and C. difficile toxin. Specimen Stool VANCOMYCIN DRUG LEVEL (09/07/2016 6:34 AM) Component Value Range Vancomycin Drug Level 24.4 0.0-40.0 g/mL Specimen Blood ECG - EKG 12 LEAD (09/05/2016 6:28 PM)Only the most recent of7 resultswithin the time period is included. Component Value Range ECG SEVERITY - ABNORMAL ECG - VENT. RATE 104 bpm RR 577 ms P-R INTERVAL 146 ms QRSD INTERVAL 144 ms QT INTERVAL 408 ms QTC INTERVAL 537 ms P AXIS 0 degrees QRS AXIS 39 degrees T WAVE AXIS 206 degrees REPORT SINUS TACHYCARDIA WITH IRREGULAR RATE 65-119 [Now Present] IVCD, CONSIDER ATYPICAL LBBB [Remains] SIGNIFICANT RHYTHM AND ECG CONTOUR CHANGES Interpreting Physician: Edouard Chiu MD ABDOMEN AP SUPINE (09/05/2016 4:45 PM) Impressions Impression: 1. Feeding tube present in the gastric antrum. Narrative Procedure:ABDOMEN AP SUPINE Clinical Indication: Dobbhoff feeding tube placement. Technique: Supine radiograph(s) of the abdomen. Comparison: None. Findings: The lung bases are not well-visualized. Please refer to chest radiograph reports. A feeding tube is present in the gastric antrum. Procedure Note Donavon, Incoming Imaging Results - [facility] Sep 05, 2016 5:15 PM CDT Procedure: ABDOMEN AP SUPINE Clinical Indication: Dobbhoff feeding tube placement. Technique: Supine radiograph(s) of the abdomen. Comparison: None. Findings: The lung bases are not well-visualized. Please refer to chest radiograph reports. A feeding tube is present in the gastric antrum. IMPRESSION Impression: 1. Feeding tube present in the gastric antrum. EEG - OR EEG MONITORING - CAROTID ENDARTERECTOMY (09/05/2016 10:52 AM) Narrative Migdalia Sloan MD 09/05/2016 10:52 AM Department of Neurology Division of Neurophysiology EEG - OR EEG MONITORING - CAROTID ENDARTERECTOMY Intra-operative Monitoring Identifying Information Patient Name:MANUELA GRAHAM Age and sex:66 y.o. female Requesting Provider: Ricky Serna MD Reason for the request: Request intraoperative EEG monitoring to monitor cerebral function during right carotid artery revision. Procedure Date of Service:09/04/2016 Monitoring Procedure:Continuous EEG monitoring during carotid endarterectomy Interpretation:Intra-operative EEG monitoring was performed on 09/04/2016 before, during, and after right carotid artery surgery revision of a prior endarterectomy.No focal changes were noted throughout the record.Pre-shunt clamp time=9 min + 20 sec, shunt time=20 min 40 sec, post-shunt clamp time=8 min + 54 sec.Total carotid clamp time was 18 min + 14 sec. Impression: No asymmetry was noted in the EEG monitor before, during clamping times and during shunting or after shunt removal in the surgical procedure. Staff Involved Staff Only IOM Physician: Paul Reddy MD Neurology Staff Migdalia Sloan MD Neurology Staff RED BLOOD CELLS, ADMINISTER (09/05/2016 5:19 AM)Only the most recent of4 resultswithin the time period is included.CHEST - AP/PA (09/05/2016 3:50 AM) Only the most recent of12 resultswithin the time period is included. Impressions Findings/Impression: Mild expected postoperative atelectasis is present in the bases. Mild cardiomegaly with postoperative changes from prior CABG and valve repair are stable and without complications. The pulmonary vasculature is normal. Vascular clips project over the right neck. The remainder the study is normal for the patient's age. Narrative Procedure: CHEST - AP/PA Technique: Portable AP chest radiograph Comparison: Chest radiograph(s) dated: 07/27/2016 to 08/02/2016. Clinical Indication: Post resection of infected right carotid artery. Procedure Note Donavon, Incoming Imaging Results - [facility] Sep 05, 2016 8:52 AM CDT Procedure: CHEST - AP/PA Technique: Portable AP chest radiograph Comparison: Chest radiograph(s) dated: 07/27/2016 to 08/02/2016. Clinical Indication: Post resection of infected right carotid artery. IMPRESSION Findings/Impression: Mild expected postoperative atelectasis is present in the bases. Mild cardiomegaly with postoperative changes from prior CABG and valve repair are stable and without complications. The pulmonary vasculature is normal. Vascular clips project over the right neck. The remainder the study is normal for the patient's age. RED BLOOD CELLS DISPENSE FROM BLOOD BANK (09/05/2016 3:27 AM)Only the most recent of7 resultswithin the time period is included. Component Value Range Blood Coding System [id number] Blood Product Volume 325 Blood Product ABORH A Neg Blood Unit Number [id number] BLOOD DISPENSE STATUS ISS Blood Product Type Red Blood Cells Blood Product Code J5211S23 LACTIC ACID, WHOLE BLOOD ([facility]) (09/05/2016 3:20 AM)Only the most recent of20 resultswithin the time period is included. Component Value Range Lactic Acid, Whole Blood 1.7Comment: 0.5-2.0 mEq/L Glycolate, the principle toxic metabolite of ethylene glycol, can cause artifactual elevation of measured lactate. Specimen Whole Blood TROPONIN T (09/05/2016 1:06 AM) Component Value Range Troponin-T 0.08 <=0.10 ng/mL Specimen Blood BLOOD CELL MORPHOLOGY (09/04/2016 9:41 PM) Component Value Range Polychromasia 2+ Tear Drop 1+ Large Platelet Present Specimen Whole Blood SURGICAL PATHOLOGY EXAM (09/04/2016 6:41 PM)Only the most recent of2 resultswithin the time period is included. Component Value Range Case Report Surgical Pathology Case: [id number] Authorizing Provider:Ricky Serna MDCollected: 09/04/2016 06:41 PM Ordering Location: Main OR Received:09/05/2016 07:38 AM Pathologist: Bonnie Live MD Specimen:Blood vessel, 1) Right common carotid artery Diagnosis Carotid artery, right common, endarterectomy: Atherosclerotic plaque (gross only) I have personally reviewed this case and edited the report as necessary. Gross Description A.Received fresh in a container labeled Manuela Graham, hospital number and "1) Right common carotid artery" is a 4.5 cm in length x 1.4 cm in diameter, tubular , han-white, diffusely calcified, pr eviously surgically incised tissue.No discrete mass lesions are grossly identified.No sections are submitted; gross only. ATC/wali Microscopic Description Gross only. Specimen Surgical Pathology - Blood vessel GLUCOSE ([facility]) (09/04/2016 6:25 PM)Only the most recent of25 resultswithin the time period is included. Component Value Range Glucose, Whole Blood 188(H) 65-99 mg/dL Specimen Whole Blood CHLORIDE ([facility]) (09/04/2016 6:25 PM) Component Value Range Chloride, Whole Blood 100 95-107 mEq/L Specimen Whole Blood POTASSIUM ([facility]) (09/04/2016 6:25 PM)Only the most recent of29 resultswithin the time period is included. Component Value Range Potassium, Whole Blood 4.2Comment: 3.5-5.0 mEq/L Sample run on whole blood.Hemolysis is not measured. Specimen Whole Blood SODIUM ([facility]) (09/04/2016 6:25 PM) Component Value Range Sodium, Whole Blood 131(L) 135-145 mEq/L Specimen Whole Blood HEMOGLOBIN& CALCULATED HEMATOCRIT - ([facility]) (09/04/2016 6: 25 PM)Only the most recent of19 resultswithin the time period is included. Component Value Range Hemoglobin - CCL 8.6(L) 11.9-15.5 g/dL Hematocrit (Calc) - CCL 27(L) 35-47 % Specimen Whole Blood CALCIUM, IONIZED ([facility]) (09/04/2016 6:25 PM)Only the most recent of3 resultswithin the time period is included. Component Value Range Ionized Calcium 4.5 3.8-5.2 mg/dL Specimen Whole Blood ARTERIAL BLOOD GAS ([facility]) (09/04/2016 6:25 PM)Only the most recent of26 resultswithin the time period is included. Component Value Range pH, Arterial 7.34(L) 7.35-7.45 pCO2, Arterial 40 35-45 torr pO2, Arterial 169(H) 80-90 torr Base Excess, Arterial -4(L) -2-2 mEq/L Bicarbonate, Arterial 22 22-26 mEq/L Total CO2, Arterial 23(L) 24-32 mEq/L Temperature, Arterial 37.0 Degrees C Anion Gap 9 8-18 mEq/L Specimen Whole Blood ACTIVATED CLOTTING TIME - OR (09/04/2016 6:06 PM)Only the most recent of2 resultswithin the time period is included. Component Value Range ACT (Activated Clotting Time) - OR 188(H) 74-137 secs Specimen Blood AEROBIC CULTURE, ROUTINE (09/04/2016 3:32 PM)Only the most recent of2 resultswithin the time period is included. Component Value Range Culture No Growth Gram Stain No organisms or PMNs observed Specimen Microbiology - Abscess, Swab (Suboptimal) ANAEROBIC CULTURE (09/04/2016 3:32 PM) Component Value Range Anaerobic culture growth No anaerobic organisms isolated Specimen Microbiology - Abscess, Swab (Suboptimal) TYPE AND SCREEN (BLOOD TYPE(ABORH) AND RBC ANTIBODY SCREEN) (09/04/2016 2:37 PM )Only the most recent of3 resultswithin the time period is included. Component Value Range ABORH A Negative Specimen Expiration Date 2016-09-07 Antibody Screen Negative Specimen Blood VASC VENOUS MAPPING UPPER EXT (UNILATERAL) (08/15/2016 12:15 PM)CHEST- PA& LATERAL (08/02/2016 1:23 PM) Impressions Findings/impression: [...] Results - FriAug 02, 2016 6:10 PM MEAT MARKET MANAGER Procedure: CHEST- PA & LATERAL Clinical Indication: Status post CABG, mitral valve repair, evaluate effusions Technique: PA and lateral chest radiograph Comparison: 08/01/2016 IMPRESSION Findings/impression: Normal cardiomediastinal silhouette and pulmonary vasculature. No pulmonary edema. Mild basilar atelectasis is improved from yesterday's exam. There is a trace left-sided pleural effusion. Otherwise, lungs are clear. Stable postsurgical changes of CABG. GLUCOSE (08/02/2016 6:58 AM)Only the most recent of3 resultswithin the time period is included. Component Value Range Glucose 109(H)Comment: 65-99 mg/dL The Expert Committee on the Diagnosis and Classification of Diabetes has defined impaired fasting glucose as greater than or equal to 100 mg/dL but less than 126 mg/dL.(Diabetes Care 28 (Suppl 1)S41,2005) Specimen Blood CREATININE (08/02/2016 6:58 AM)Only the most [...] mEq/L Specimen Blood CT BRAIN WO CONTRAST (17282) (08/01/2016 6:29 PM) Narrative Procedure: CT BRAIN WO CONTRAST ([id number]) Indication: Vision changes, evaluate for stroke. Technique: [...] and emergent preliminary findings reported by the vice president quality assurance healthcare economics manager. Procedure Note Donavon, Incoming Imaging Results - FriAug 02, 2016 9:33 AM MEAT MARKET MANAGER Procedure: CT BRAIN WO CONTRAST ([id number]) Indication: Vision changes, evaluate for stroke. Technique: [...] and emergent preliminary findings reported by the vice president quality assurance healthcare economics manager. MICROSCOPIC URINALYSIS (08/01/2016 12:24 PM)Only the most [...] Clear Clear pH, Urine 5.0 <9.0 Spec [place], Urine 1.005 1.000-1.030 Glucose, Urine Negative Negative [...] Abnormality Status --------- ------ URINALYSIS WITH REFLEX C...[[id number]]AbnormalFinal result MICROSCOPIC URINALYSIS[[id number]] Abnormal Final result URINE CULTURE, REFLEXED[[id number]] Please view results for these tests on the individual orders. DIGOXIN DRUG LEVEL (08/01/2016 3:45 AM)Only the [...] can College of Cardiology Foundation (ACCF) / [place] [employer] Association (AHA ) 2013 guidelines recommend [...] Count 265 150-400 K/MM3 Specimen Whole Blood VENOUS OXYGEN SATURATION ([facility]) (07/31/2016 2:11 PM)Only the most recent of38 resultswithin the time period is included. Component Value Range Venous O2 Saturation 51.7 % Venous Oxyhemoglobin 50.1 % Specimen Whole Blood OSMOLALITY-URINE (07/29/2016 3:15 PM) Component Value Range Osmolality-Urine 309(L) 350-1050 mOsm/k Specimen Urine OSMOLALITY, PLASMA (07/29/2016 1:04 PM) Component Value Range Osmolality, Plasma 266(L) 275-295 mOsm/kg Specimen Blood CALCIUM (07/29/2016 4:12 AM)Only the most recent of4 resultswithin the time period is included. Component Value Range Calcium 8.8 8.5-10.5 mg/dL Specimen Blood THYROXINE - FREE (07/28/2016 4:06 AM) Component Value Range Free T4 (Thyroxine) 0.41(L) 0.80-1.80 ng/dL Specimen Blood THYROID STIMULATING HORMONE (TSH), WITH REFLEX FREE T-4 (07/28/2016 4:06 AM) Component Value Range TSH, Reflex 5.43(H) 0.27-4.20 IU/mL Specimen Blood CENTRAL LINE (07/25/2016 8:08 PM) Ignacio Diaz MD 07/25/20168:08 PM Central Line Procedure Note Date of Procedure: 07/25/2016 CENTRAL LINE Date/Time: 07/25/2016 4:58 PM Consent obtained: Yes (verbal) Immediately prior to procedure a time out was called to verify the correct patient, procedure, equipment, director decision support and site/side marked as required Anesthesia [...] for the entire procedure. Ignacio Hernandez MD [facility] OR CASE (07/23/2016 7:44 PM) Procedure Note FriJul 22, 2016 12:00 AM MEAT MARKET MANAGER Date: 07/22/2016 LOCATION: Main OR room 7. [...] Live MD FELLOW SURGEON: Drew Humphrey M.D. STATE ASSESSED PROPERTIES DIRECTOR: Elier Madrigal RN. INDICATIONS: Manuela Graham is a 66-year-old female patient with peripheral [...] Shannon Live MD Dictated Date/Time: 07/23/2016 16:43:38 Microbiology Technician Initials: NTS Voice Job ID : [id number] PLASMA DISPENSE FROM BLOOD BANK (07/22/2016 5:08 PM)Only the most recent of4 resultswithin the time period is included. Component Value Range Blood Coding System [id number] Blood Product Volume 309 Blood Product ABORH A Pos Blood Unit Number [id number] BLOOD DISPENSE STATUS ISS Blood Product Type FFP Blood Product Code R3599C64 Blood Coding System [id number] Blood Product Volume 306 Blood Product ABORH A Pos Blood Unit Number [id number] BLOOD DISPENSE STATUS RET Blood Product Type FFP Blood Product Code J4220Q85 FIBRINOGEN (07/22/2016 5:01 PM)Only the most recent of5 resultswithin the time period is included. Component Value Range Fibrinogen 273 180-400 mg/dL Specimen Blood CRYOPRECIPITATE DISPENSE FROM BLOOD BANK (07/22/2016 3:40 PM) Component Value Range Blood Coding System [id number] Blood Product Volume 96 Blood Product ABORH A Pos Blood Unit Number [id number] BLOOD DISPENSE STATUS ISS Blood Product Type Cryoprecipitate Blood Product Code U7384B58 PLATELETS DISPENSE FROM BLOOD BANK (07/22/2016 3:29 PM)Only the most recent of2 resultswithin the time period is included. Component Value Range Blood Coding System [id number] Blood Product Volume 258 Blood Product ABORH AB Neg Blood Unit Number [id number] BLOOD DISPENSE STATUS ISS Blood Product Type Platelets Blood Product Code T0430N98 THROMBOELASTOGRAPH (TEG) (07/22/2016 2:37 PM)Only the most recent of2 resultswithin the time period is included. Component Value Range Initial Clot Formation 6.3 5.0-10.0 mins Kinetics 1.8 1.0-3.0 mins Clot Angle 61.8 53.0-72.0 Degrees Maximum Amplitude 59.0 50.0-70.0 mm LY30 0.0 0.0-8.0 % Coagulation Index -0.6 -3.0-3.0 Clot Strength G 7.2 4.5-11.0 Kd/cm2 Specimen Blood HEPARINASE THROMBOELASTOGRAPH (07/22/2016 10:57 AM) Component Value [...] for MV Replacement, TV Repair, and CABG Multifocal Lens Inspector Matteo An Interpreting Physician Matteo An MD electronically signed on 2016-07-23 16:53:36.97 ECHO ADULT - STORE ECHOCARDIOGRAM ONLY (07/19/2016 11:14 AM) Component Value Range Patient Height (cm) 160 cm Patient Weight (kg) 72.1 kg BSA (meters^2) 1.8 m^2 Procedures ([id number]) RVDd 3.5 cm IVSd 1.2 cm LVIDd [...] Narrative Test methodology:PCR amplification; Xpert SA Test ([employer]) CHOLESTEROL (07/09/2016 11:16 AM) Component Value Range [...] Specimen Blood CT ANGIO HEAD& NECK W/WO ([id number], 58700) (07/04/2016 10:49 AM) Impressions Impression: 1. Postsurgical [...] to: PERSON CONTACTED:MIKE Suarez DATE: 07/04/2016 TIME CALLED:[phone] PHONE/PAGER:[phone] Narrative Procedure: CT ANGIO HEAD & NECK W/WO ([id number], 66105) Indication: Draining from right carotid endarterectomy incision Exam: Axial CT angiogram of the neck and [place]emat[place] after the uneventful administration of [...] Procedure Note Donavon, Incoming Imaging Results - [facility] Jul 04, 2016 1:57 PM MEAT MARKET MANAGER Procedure: CT ANGIO HEAD & NECK W/WO ([id number], 83500) Indication: Draining from right carotid endarterectomy incision Exam: Axial CT angiogram of the neck and [place]emat[place] of [place] after the uneventful administration of [...] CONTACTED: MIKE Suarez DATE: 07/04/2016 TIME CALLED: [phone] PHONE/PAGER: [phone] IRL RADIOLOGY CREATININE, POINT OF CARE (07/04/2016 9:53 AM) Component Value Range IRL Radiology Creatinine, Point of Care 1.4(H) 0.5-1.0 mg/dL Calculated GFR 38(L) >60 mL/min/1.73 m2 Specimen Blood
[2016-09-14 23:47] LABS: Hematocrit 31.8 % (37.0-47.0); Hemoglobin 9.2 gm/dL (12.5-16.0); Mean Cell Volume 94.1 fl (78-100); Mean Corpuscular Hemoglobin 27.2 pg (27-31); Mean Corpuscular Hgb Conc 28.9 g/dl (32-36); Mean Platelet Volume 9.2 fl (6.0-9.5); Platelet Count 173 K/mm3 (150-450); Red Blood Count 3.38 M/mm3 (4.2-5.4); Red Cell Distribution Width 20.9 % (11.5-14.0); White Blood Count 5.7 K/mm3 (4.0-10.5)
[2016-09-14 23:49] LABS: Total Cells Counted 100
[2016-09-14 23:57] LABS: Prothrombin Time (Patient) 15.4 Seconds (9.4-11.4)
[2016-09-14 23:58] LABS: Anisocytosis 2+; Atypical (Reactive) Lymph 9 % (0-2); Band 1 % (0-2.0); Basophil 1 % (0-1); Hypochromia 2+; Lymphocyte 17 % (20-51); Monocyte 8 % (0-9); Neutrophil 64 % (42-75); Neutrophil # 3.6 K/mm3 (1.3-6.0); Platelet Estimate Normal (NORMAL); Poikilocytosis 2+
[2016-09-15] LABS: INR 1.48 INR (0.90-1.10)
[2016-09-15 00:08] LABS: Albumin * 3.5 gm/dl (3.4-5.0); Anion Gap 13.7 mmol/L (6.8-13.8); BUN/Creatinine Ratio 30.1 (9.0-21.6); Bilirubin, Total 1.2 mg/dL (0.0-1.1); Ca. Corrected For Albumin 9.1 mg/dL (8.4-10.2); Carbon Dioxide 29.4 mmol/L (24-32.6); Potassium 3.1 mmol/L (3.4-4.6)
[2016-09-15 00:09] LABS: Troponin I 0.805 ng/ml (0.00-0.10)
[2016-09-15] MEDS ORDERED: FUROSEMIDE 10 MG/ML VIAL IV ONE ×2 (00:37→02:16)
[2016-09-15] MEDS ORDERED: FUROSEMIDE 10 MG/ML VIAL ONE (00:42)
[2016-09-15] MEDS ORDERED: SPIRONOLACTONE 100 MG TABLET PO ONE ×2 (02:24→15:30)
--- OUTSIDE RECORDS SUMMARY | 2016-09-15 02:24 | XMS REPORT | Continuity of Care Document ---
:1950 Author Organization [facility] ([facility]) Address [address] [place] [address] Phone [phone] Care Team Providers Name Role Phone Lidadeliorosa mAv Primary Care Provider [phone] Source Comments This disclosure is being made pursuant to the Care Everywhere program, applicable federal and state laws, and may not contain all informaitonavailable regarding this patient.[facility] ([facility]) Active Allergies and Adverse Reactions Allergen Noted [...] Encounters Date Type Specialty Providers Description 03/14/2017 [facility] Radiology Encounter 09/13/2016 Telephone Otolaryngology Michelet Cabral Chief Comp: Shena Blum MD 09/12/2016 Surgery Radiology Darrel Murray IR PERC GASTROSTOMY MD TUBE PLACEMENT 09/09/2016 [facility] Heart and Vascular Kareem, Chief Comp: Patient Encounter MD Ricky Reported Reason For Visit 09/09/2016 [facility] Heart [facility] V[facility] Fabian, Chief Comp: Patient Encounter Chuy Jeronimo MD Reported Reason For Kareem, Visit MD Ricky 09/06/2016 Office Visit Heart and Vascular Default, Other Dx: S/P MVR ( mitral Billg - Defo valve replacement) Calos, (Primary Dx) MD Shannon 09/04/2016 [facility] Neurology Migdalia Sloan, Chief Comp: Patient Encounter MD Reported Reason For Kareem, Visit MD Ricky 09/04/2016 [facility], Dx: Wound infection - Encounter Inpatient - [...] RN 08/18/2016 Hospital Patient Services Encounter 08/15/2016 [facility], Dx: Wound infection Encounter MD Ricky after surgery, initial encounter 08/15/2016 [facility] Heart [facility], Chief Comp: Patient Encounter MD Ricky Reported Reason For Visit 08/15/2016 [facility], Chief Comp: Patient Encounter MD Ricky Reported Reason For Visit 08/15/2016 Office Visit Srg Vascular Kareem, Dx: Wound infection MD Ricky after surgery, initial encounter (Primary Dx) 08/15/2016 Ancillary Orders Srg Vascular Barb, Dx: Wound infection Marques Almazan DDS after surgery, initial encounter (Primary Dx) 08/02/2016 Pharmacy Visit 08/02/2016 Telephone Isrrael, Chief Comp: Marco Byrd CPhT Prior Authorization 08/01/2016 [facility] Neurology Jamaica Gonzalez Chief Comp: Patient Encounter MD Sherman Reported Reason For Visit 08/01/2016 Ophth Exam Ophthalmology - Loyd Soler MD 07/22/2016 [facility] Heart [facility] Vascular Calos, Chief Comp: Patient Encounter MD Shannon Reported Reason For Visit 07/22/2016 Surgery General Surgery Calos, MITRAL and TRICUSPID MD Shannon VALVE REPLACEMENT REPAIR 07/19/2016 [facility] Heart and V[facility] Calos, Chief Comp: Patient Encounter MD Shannon Reported Reason For Visit 07/19/2016 [facility] Cardiology Ramiro Martinez Chief Comp: Patient Encounter MD Richard Reported Reason For Visit 07/19/2016 Orders/Notes Heart and Vascular Shannon Live MD 07/09/2016 Office Visit Heart and Vascular Calos, Dx: Mitral valve MD Shannon disorder 07/09/2016 [facility] Anesthesiology Default, Other Dx: Hematoma Encounter Billg - Defo complicating a Calos, procedure (Primary MD Shannon Dx) 07/09/2016 [facility] Heart and Vascular Jeni, Chief Comp: Patient Encounter MD Casi Reported Reason For Visit 07/09/2016 [facility] Heart [facility] V[facility] Jeni, Dx: Rheumatic mitral Encounter MD Casi regurgitation 07/09/2016 [facility] Heart and Vascular Walton, Dx: Rheumatic mitral Encounter MD Casi regurgitation 07/09/2016 [facility] Heart and Vascular Default, Other Chief Comp: Patient Encounter Billg - Defo Reported Reason For Kareem, Visit MD Ricky 07/09/2016 Office Visit Sr Vascular Kareem, Dx: 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 (Primary Dx) 07/05/2016 Orders/Notes Heart and Vascular Petra Swann, Dx: Mitral valve DISTRIBUTION LEAD disorder (Primary Dx) 07/04/2016 Office Visit Sr Vascular Kareem, Dx: Carotid artery MD Ricky stenosis, asymptomatic, right (Primary Dx) 07/04/2016 [facility] Radiology Joaquín Enciso, Dx: Pre-procedure Encounter lab exam (Primary Dx) 07/04/2016 Office Visit Pathology Kareem, Dx: Pre-procedure MD Ricky lab exam Lab Services, Irl 06/20/2016 [facility] Heart and Vascular Kareem, Chief Comp: Patient Encounter MD Ricky Reported Reason For Visit 06/20/2016 [facility] V[facility] Kareem, Dx: Carotid Encounter [...] Patient - Defo Reported Reason For [address] [facility] [place] [address] [phone] (Fax) 09/27/2016 Appointment Heart and Vascular Default, Other Billg - Defo [address] [place] [address] [phone] (Fax) Chief Comp: Patient Shannon Live MD [address] [place] [address] [phone] (Fax) Reported Reason For Visit 11/08/2016 Appointment Vascular Surgery Ricky Serna MD [address] [place] [address] [phone] (Fax) Chief Comp: Patient Casi Ngo MD [address] [place] [address] [phone] (Fax) Reported Reason For Visit 03/14/2017 Surgery Radiology Radiologist, Rad IR PERC GASTROSTOMY Invasive TUBE CHECK & CHANGE [address] [place] [address] [phone] (Fax) Health Maintenance Due Date Last Done [...] disorder Results for this BILLING STAFF PM FILM PROJECTOR OPERATOR 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 S/P mitral valve repair S/P tricuspid valve repair TSG OR CASE Routine 07/23/2016 7:44 Rheumatic mitral Results for this PM FILM PROJECTOR OPERATOR regurgitation procedure are in the results section. CORONARY ARTERY 07/22/2016 8:15 Rheumatic mitral BYPASS GRAFT, AM FILM PROJECTOR OPERATOR regurgitation ARTERY/VEIN Case Notes MVR/TVR, possible CABG-full sternotomy-on bypas-supine- [id number] MITRAL and TRICUSPID VALVE 07/22/2016 8:15 AM FILM PROJECTOR OPERATOR Rheumatic mitral REPLACEMENT REPAIR regurgitation Case Notes MVR/TVR, possible CABG-full sternotomy-on bypas-supine- [id number] Results from Last 3 Months PT/INR (PROTHROMBIN [...] IMPRESSION: 1. Successful placement of a 12 Iranian Rodarte-Ogelsby locking pigtail gastrostomy tube with no [...] 1 mg glucagon IV PHYSICIANS: Dr. Murray EMPLOYEE WELFARE MANAGER: Dr. Kang PULSES:Intact bilaterally COMPLICATIONS:None immediate BLOOD [...] and 12 F soft dilators. A 12 Iranian Rodarte-Ogelsby locking pigtail catheter was advanced into [...] 1 mg glucagon IV PHYSICIANS: Dr. Murray EMPLOYEE WELFARE MANAGER: Dr. Kang PULSES: Intact bilaterally COMPLICATIONS: None [...] and 12 F soft dilators. A 12 Iranian Rodarte-Ogelsby locking pigtail catheter was advanced into [...] IMPRESSION: 1. Successful placement of a 12 Iranian Rodarte-Ogelsby locking pigtail gastrostomy tube with no [...] Specimen Blood CT ABDOMEN& PELVIS W CONTRAST ([id number]) (09/10/2016 12:05 PM) Impressions Impression: 1. Extensive atherosclerotic disease. 2. Bolus timing of this exam suggests poor cardiac output. 3. Small volume deep pelvic ascites. 4. Small left, moderate right pleural effusion. Narrative Procedure: CT ABDOMEN & PELVIS W CONTRAST ([id number]) Clinical Indication: Needs PEG tube, evaluate anatomy. [...] Procedure: CT ABDOMEN & PELVIS W CONTRAST ([id number]) Clinical Indication: Needs PEG tube, evaluate anatomy. [...] 4. Small left, moderate right pleural effusion. [facility] CAROTID DUPLEX SCAN (UNILATERAL) (09/09/2016 3:40 PM)Only [...] Procedure Note Donavon, Incoming Imaging Results - [facility] Sep 12, 2016 3:07 PM CDT Procedure: [...] ligated. The valves were lysed with a Asteel valvulotome.The vein configured non reversed and was [...] anastomosis.We then turned attention to the infected [place] carotid.There was an inflammatory mass involving the [...] Outpatient Studies: duplex Other: Not Applicable Adams Nelosn MD Vascular surgery resident Pager [phone] C. DIFFICILE TOXIN SCREEN (09/07/2016 7:03 AM) [...] included. Component Value Range Blood Coding System [id number] Blood Product Volume 325 Blood Product ABORH A Neg Blood Unit Number [id number] BLOOD DISPENSE STATUS ISS Blood Product Type Red Blood Cells Blood Product Code O2974L34 LACTIC ACID, WHOLE BLOOD ([facility]ICAL [facility]) [...] Value Range Case Report Surgical Pathology Case: [id number] Authorizing Provider:Ricky Serna MDCollected: 09/04/2016 06:41 PM Ordering Location: Main OR Received:09/05/2016 07:38 AM Pathologist: Bonnie Live MD Specimen:Blood vessel, 1) Right common carotid artery Diagnosis Carotid artery, right common, endarterectomy: Atherosclerotic plaque (gross only) I have personally reviewed this case and edited the report as necessary. Gross Description A.Received fresh in a container labeled Maneula Graham, hospital number and "1) Right common [...] Results - FriAug 02, 2016 6:10 PM FILM PROJECTOR OPERATOR Procedure: CHEST- PA & LATERAL Clinical Indication: [...] mEq/L Specimen Blood CT BRAIN WO CONTRAST ([id number]) (08/01/2016 6:29 PM) Narrative Procedure: CT BRAIN WO CONTRAST ([id number]) Indication: Vision changes, evaluate for stroke. Technique: [...] and emergent preliminary findings reported by the radiology nurse group leader semiconductor processing. Procedure Note Donavon, Incoming Imaging Results - FriAug 02, 2016 9:33 AM FILM PROJECTOR OPERATOR Procedure: CT BRAIN WO CONTRAST ([id number]) Indication: Vision changes, evaluate for stroke. Technique: [...] and emergent preliminary findings reported by the radiology nurse group leader semiconductor processing. MICROSCOPIC URINALYSIS (08/01/2016 12:24 PM)Only the most [...] Clear Clear pH, Urine 5.0 <9.0 Spec [place], Urine 1.005 1.000-1.030 Glucose, Urine Negative Negative [...] Abnormality Status --------- ------ URINALYSIS WITH REFLEX C...[[id number]]AbnormalFinal result MICROSCOPIC URINALYSIS[[id number]] Abnormal Final result URINE CULTURE, REFLEXED[[id number]] Please view results for these tests on [...] can College of Cardiology Foundation (ACCF) / [place] [employer] (AHA ) 2013 guidelines recommend [...] to verify the correct patient, procedure, equipment, retail support manager and site/side marked as required Anesthesia (see [...] Procedure Note FriJul 22, 2016 12:00 AM FILM PROJECTOR OPERATOR Date: 07/22/2016 LOCATION: Main OR room 7. [...] Live MD FELLOW SURGEON: Drew Humphrey M.D. EMPLOYEE WELFARE MANAGER: Elier Madrigal RN. INDICATIONS: Manuela Graham is [...] Shannon Live MD Dictated Date/Time: 07/23/2016 16:43:38 Composition Floor Setter Initials: NTS Voice Job ID : [id number] PLASMA DISPENSE FROM BLOOD BANK (07/22/2016 5:08 PM)Only the most recent of4 resultswithin the time period is included. Component Value Range Blood Coding System [id number] Blood Product Volume 309 Blood Product ABORH A Pos Blood Unit Number [id number] BLOOD DISPENSE STATUS ISS Blood Product Type FFP Blood Product Code Q6364G68 Blood Coding System JESE750 Blood Product Volume 306 Blood Product ABORH A Pos Blood Unit Number [id number] BLOOD DISPENSE STATUS RET Blood Product Type FFP Blood Product Code S8950Y08 FIBRINOGEN (07/22/2016 5:01 PM)Only the most recent of5 resultswithin the time period is included. Component Value Range Fibrinogen 273 180-400 mg/dL Specimen Blood CRYOPRECIPITATE DISPENSE FROM BLOOD BANK (07/22/2016 3:40 PM) Component Value Range Blood Coding System HGRG869 Blood Product Volume 96 Blood Product ABORH A Pos Blood Unit Number [id number] BLOOD DISPENSE STATUS ISS Blood Product Type Cryoprecipitate Blood Product Code E3257M30 PLATELETS DISPENSE FROM BLOOD BANK (07/22/2016 3:29 PM)Only the most recent of2 resultswithin the time period is included. Component Value Range Blood Coding System LMQE373 Blood Product Volume 258 Blood Product ABORH AB Neg Blood Unit Number [id number] BLOOD DISPENSE STATUS ISS Blood Product Type Platelets Blood Product Code B7642W52 THROMBOELASTOGRAPH (TEG) (07/22/2016 2:37 PM)Only the most [...] for MV Replacement, TV Repair, and CABG Cooperative Extension Agent Matteo An Interpreting Physician Matteo An MD electronically signed on 2016-07-23 16:53:36.97 ECHO ADULT - STORE ECHOCARDIOGRAM ONLY (07/19/2016 11:14 AM) Component Value Range Patient Height (cm) 160 cm Patient Weight (kg) 72.1 kg BSA (meters^2) 1.8 m^2 Procedures (3251566F) RVDd 3.5 cm IVSd 1.2 cm LVIDd [...] Narrative Test methodology:PCR amplification; Xpert SA Test (Trips n Salsa) CHOLESTEROL (07/09/2016 11:16 AM) Component Value Range [...] Specimen Blood CT ANGIO HEAD& NECK W/WO ([id number], [id number]) (07/04/2016 10:49 AM) Impressions Impression: 1. Postsurgical [...] to: PERSON CONTACTED:MIKE Suarez DATE: 07/04/2016 TIME CALLED:[id number] PHONE/PAGER:[phone] Narrative Procedure: CT ANGIO HEAD & NECK W/WO ([id number], [id number]) Indication: Draining from right carotid endarterectomy incision Exam: Axial CT angiogram of the neck and [place] of [place] after the uneventful administration of [...] Procedure Note Donavon, Incoming Imaging Results - [facility] Jul 04, 2016 1:57 PM FILM PROJECTOR OPERATOR Procedure: CT ANGIO HEAD & NECK W/WO ([id number], [id number]) Indication: Draining from right carotid endarterectomy incision Exam: Axial CT angiogram of the neck and [place] of [place] after the uneventful administration of [...] CONTACTED: MIKE Suarez DATE: 07/04/2016 TIME CALLED: [phone] PHONE/PAGER: [phone] IRL RADIOLOGY CREATININE, POINT OF CARE (07/04/2016 9:53 AM) Component Value Range IRL Radiology Creatinine, Point of Care 1.4(H) 0.5-1.0 mg/dL Calculated GFR 38(L) >60 mL/min/1.73 m2 Specimen Blood
--- NOTE | 2016-09-15 02:45 | HP ---
Chief Complaint - Chief Complaint Date of Service: 09/15/16 Time of Service: 02:44 Chief Complaint: "SOB''. Source of HPI- Pt; reliable, pt's Spouse & daughter, ER provider report. History of Present Illness: Mrs. Camarena is a 66-yr-old WF pt of Dr. Av Hodges with a PMH of: Anemia, Athritis, Carotid Stenosis, CHF, COPD, CAD, HTN, HLD, GERD, PVD. History is mostly provided by pt's spouse and daughter. Pt has an extensive cardiac /open heart surgery history involving: Mitral Valve and Tricuspid valve repair, CABG which was done on 07/22/16. She also just recently underwent a RT carotid endarterectomy on 09/04 and was discharged on 09/14 from the [facility]. They state that she developed some complications from the surgery which affected her vocal cords, hence her swallowing. She ended up developing Oropharyngeal Dysphagia as a result and a Percutaneous Endoscopic Gastrostomy was placed on 09/13. Spouse states that she still had increased swelling on her legs on the day of discharge from the [facility]. Pt reports that since arriving home from hospital in the morning, she got SOB and it seemed to get worse as the day went by. She just put up with it, but then after she went to bed at night, she could could not sleep due to severe SOB. She alerted her family who brought her to the [facility] ER. The CXR obtained at the ED did not have did not have any acute findings. However, her BNP was elevated at 22,780. Her EKG showed Afib and LBBB but unchanged from previous one. The Troponin was elevated at 0.805 and repeat after 2 hrs had trended down to 0.727. She received IV Lasix 120mg, and was able to diurese 450ml. At the time of physical exam, she is in no distress, appears calm and not requiring any oxygen supplementation, but still noted to have significant 4 +tibial/pedal edema. Off note, she was admitted at the [facility] on 08/18 for CHF exacerbation evidenced with increasing leg swelling and SOB. She was discharged on 08/21 after diuresing well with IV Lasix. She will be admitted under observation status due to acute exacerbation of CHF which will require additional IV diuretics. - Patient's Past Medical History Patient History - Medical: Anemia, Anxiety, Fibromyalgia, Hypothyroidism, Osteoarthritis Patient History - Cardiac/Respiratory: Atrial Fibrillation, Arrhythmias, Cardiac Arrest, Cardiomyopathy, Coronary Heart Disease, CHF, COPD, Hypertension , Hyperlipidemia, Myocardial Infarction, Valvular Heart Disease, Other Patient History - Cancer: No Hx of Cancer Patient History - Surgical Procedures: Appendectomy, Coronary Bypass Surgery, Hysterectomy, Other, Hernia Repair Patient History - Other: None - Family History Mother Family History - Cardiac/Respiratory: Aneurysm, Cardiac Arrest, Myocardial Infarction Family History - Cancer: Other Father Family History - Medical: , No pertinent hx - Social History Living Situations: spouse Psych History: No pertinent hx Smoking Status: Former smoker Alcohol Use: none Drug Use: none - Immunizations Immunizations Up to Date: Yes Hx Pneumococcal Vaccination: No History of Influenza Vaccine: No Review Of Systems (GEN) - Review of Systems Generalized/Overall Review: Present: Weakness. Absent: Chills, Fever EENTM: Absent: Eye Pain, Blurred Vision Respiratory: Present: Cough, Shortness of Breath Cardiac: Present: Edema. Absent: Chest Pain, Palpitations, Syncope Abdominal: Absent: Nausea, Vomiting, Hematemesis, Abdominal Pain Genitourinary: Absent: Burning, Itching, Urgency, Hematuria Musculoskeletal: Absent: Joint Pain, Back Pain Neurological: Present: Emotional Problems. Absent: Headache, Anxiety, Numbness , Parasthesia Skin: Present: Dryness, Bruising Endocrine: Absent: Intolerance to Cold, Increased Thirst Misc: All systems neg except as marked Allergies/Adverse Reactions: Allergies Allergy/AdvReac Type Severity Reaction Status Date / Time adhesive tape Allergy Verified 08/18/16 09:13 amoxicillin Allergy Verified 08/18/16 09:13 penicillin V Allergy Verified 08/18/16 09:13 Home Medications: HOME MEDICATIONS ALPRAZolam [Xanax] 0.25 mg PO BID PRN 08/18/16 [Last Taken Unknown] Acetaminophen [Tylenol] 650 mg PO Q4H PRN 08/18/16 [Last Taken Unknown] Albuterol Sulfate 2 mg PO TID 08/18/16 [Last Taken Unknown] Albuterol Sulfate [Proair Respiclick] 90 mcg IH Q6H PRN 08/18/16 [Last Taken Unknown] Atorvastatin Calcium [Lipitor] 20 mg PO DAILY 08/18/16 [Last Taken Unknown] Clopidogrel Bisulfate [Plavix] 75 mg PO DAILY 08/18/16 [Last Taken Unknown] Digoxin [Lanoxin] 62.5 mcg PO DAILY 08/18/16 [Last Taken Unknown] HYDROcodone/ACETAMINOPHEN [[place] 5-325] 1 tab PO Q6H PRN 08/18/16 [Last Taken Unknown] Metoprolol Tartrate [Lopressor] 6.25 mg PO BID 08/18/16 [Last Taken Unknown] Sildenafil Citrate [Revatio] 5 mg PO TID 08/18/16 [Last Taken Unknown] Warfarin Sodium 2 mg PO DAILY 08/18/16 [Last Taken Unknown] Amiodarone HCl [Cordarone] 200 mg PO DAILY #30 tablet 08/21/16 [Last Taken Unknown] Furosemide [Lasix] 40 mg PO BID #60 tablet 08/21/16 [Last Taken Unknown] Levothyroxine Sodium [Synthroid] 100 mcg PO DAILY@0700 #30 tablet 08/21/16 [ Last Taken Unknown] Potassium Chloride [Klor-Con] 20 meq PO DAILY #30 packet 08/21/16 [Last Taken Unknown] Famotidine [Pepcid] 20 mg PO BID 09/14/16 [Last Taken Unknown] Exam - Exam Vital Signs: Vital Signs - Last Taken Temp 36.3 C L 09/14/16 23:01 Pulse 72 09/15/16 02:28 Resp 14 09/15/16 01:58 BP 123/89 09/15/16 02:28 Pulse Ox 95 09/15/16 01:58 Constitutional: Present: Alert, Oriented x3, No distress, Looks Older than stated age ENT Exam: Present: muffled/hoarse voice Eye Exam: bilateral eye: normal inspection, PERRL Neck: Present: other - surgical incision on RT Neck, dry, no redness.. Absent: full range of motion Back Exam: Present: normal inspection Respiratory: Present: no accessory muscle use, rhonchi, No wheezing Cardiovascular/Chest: Present: chest tender, irregularly irregular Abdomen: Present: soft, obese, tender, other - PEG tube /Rectal: Present: Exam deferred Extremity: Present: pedal edema - + 4 tibial, pedal edema Skin Exam: Present: cool/dry, pallor, other - Ecchymosis on RUE. Lymphatic: Present: no adenopathy Neurologic: Present: no motor/sensory deficits, alert, oriented x 3, depressed affect Appearance: Present: appropriate insight Eye contact: Present: cooperative, good eye contact Thoughts: Present: no apparent hallucination Diagnostic Studies: Laboratory Results WBC 5.7 K/mm3 (4.0-10.5) 09/14/16 23:40 RBC 3.38 M/mm3 (4.2-5.4) L 09/14/16 23:40 Hgb 9.2 gm/dL (12.5-16.0) L 09/14/16 23:40 Hct 31.8 % (37.0-47.0) L 09/14/16 23:40 MCV 94.1 fl (78-100) 09/14/16 23:40 MCH 27.2 pg (27-31) 09/14/16 23:40 MCHC 28.9 g/dl (32-36) L 09/14/16 23:40 RDW 20.9 % (11.5-14.0) H 09/14/16 23:40 Plt Count 173 K/mm3 (150-450) 09/14/16 23:40 MPV 9.2 fl (6.0-9.5) 09/14/16 23:40 Neutrophils % (Manual) 64 % (42-75) 09/14/16 23:40 Band Neuts % (Manual) 1 % (0-2.0) 09/14/16 23:40 Lymphocytes % (Manual) 17 % (20-51) L 09/14/16 23:40 Monocytes % (Manual) 8 % (0-9) 09/14/16 23:40 Basophils % (Manual) 1 % (0-1) 09/14/16 23:40 Neutrophils # (Manual) 3.6 K/mm3 (1.3-6.0) 09/14/16 23:40 Lymphocytes # (Manual) 1.0 k/mm3 (1.5-3.5) L 09/14/16 23:40 Monocytes # (Manual) 0.5 k/mm3 (0.0-1.0) 09/14/16 23:40 Basophils # (Manual) 0.1 k/mm3 (0.0-0.1) 09/14/16 23:40 Atypic/Reactive Lymphs 9 % (0-2) H 09/14/16 23:40 Platelet Estimate Normal (NORMAL) 09/14/16 23:40 Hypochromasia 2+ 09/14/16 23:40 Poikilocytosis 2+ 09/14/16 23:40 Anisocytosis 2+ 09/14/16 23:40 PT 15.4 Seconds (9.4-11.4) H 09/14/16 23:40 INR (Anticoag Therapy) 1.48 INR (0.90-1.10) H 09/14/16 23:40 Sodium 142 mmol/L (132-142) 09/14/16 23:40 Plasma Sodium 143 mmol/L (130-142) H 09/14/16 23:40 Potassium 3.1 mmol/L (3.4-4.6) L 09/14/16 23:40 Chloride 102 mmol/L (97-106) 09/14/16 23:40 Carbon Dioxide 29.4 mmol/L (24-32.6) 09/14/16 23:40 Anion Gap 13.7 mmol/L (6.8-13.8) 09/14/16 23:40 BUN 41 mg/dL (3-23) H D 09/14/16 23:40 Creatinine 1.36 mg/dL (0.4-1.4) 09/14/16 23:40 Est GFR (Non-Af Amer) 42 mL/min (60-130) L 09/14/16 23:40 BUN/Creatinine Ratio 30.1 (9.0-21.6) H 09/14/16 23:40 Random Glucose 145 mg/dL (70-110) H 09/14/16 23:40 Calcium 9.0 mg/dL (7.9-10.9) 09/14/16 23:40 Calcium Adj for Albumin 9.1 mg/dL (8.4-10.2) 09/14/16 23:40 Total Bilirubin 1.2 mg/dL (0.0-1.1) H 09/14/16 23:40 AST 31 U/L (0-48) 09/14/16 23:40 ALT 43 U/L (19-67) 09/14/16 23:40 Alkaline Phosphatase 144 U/L (50-170) 09/14/16 23:40 Troponin I 0.727 ng/ml (0.00-0.10) H* 09/15/16 01:45 B-Natriuretic Peptide 18934 pg/mL (5-205) H 09/14/16 23:40 Total Protein 8.0 gm/dL (6.2-8.2) 09/14/16 23:40 Albumin 3.5 gm/dl (3.4-5.0) 09/14/16 23:40 Assessment/Plan - Assessment/Plan (1) Acute on chronic diastolic CHF (congestive heart failure) Assessment: Pt presented with Dyspnea, reported Orthopnea and was noted to have 4 + tibial/ pedal edema. Was able to diurese only 450ml at the ED following 120mg of IV Lasix. Will give additional daily doses. Monitor close for low perfusion signs ; hypotension , declining renal function, decreased urinary output. Has an E.F of 30%. She will need to be transferred for an Ultrafiltration dialysis if she does not respond well to IV diuretics-the treatment is reserved for HF patients with fluid overload signs with preserved renal function, who don't respond well to high dose diuretic therapy. Measure Accurate I/O, Daily weights, F.R- 1.5-2 L/day, low salt diet, CHF teaching. BMP in am. Problem: Acute (2) Oropharyngeal dysphagia Assessment: Will keep NPO, provide chlorohexidine to prevent oral thrush, Continue with home T.F, Vital 1.2 120ml QID till seen by Dietary for further nutritional recommendation. Problem: Acute (3) S/P carotid endarterectomy Assessment: Has a follow-up appt at the [facility] on 09/27 Problem: Acute (4) A-fib Assessment: Place remote telemetry- Continue Coumadin. Problem: Chronic (5) COPD (chronic obstructive pulmonary disease) Problem: Chronic (6) History of tricuspid valve repair Problem: Chronic (7) Hx of mitral valve replacement with tissue graft Problem: Chronic (8) Elevated troponin Problem: Chronic
[2016-09-15] MEDS ORDERED: SPIRONOLACTONE 25 MG TABLET ONE (03:27)
[2016-09-15 03:29] LABS: Urine Bilirubin Negative (NEGATIVE); Urine Blood 25 /ul (NEGATIVE); Urine Ketone Negative (NEGATIVE); Urine Nitrite Negative (NEGATIVE); Urine Protein 30 mg/dL (NEGATIVE); Urine Specific Gravity 1.015 SP.GR. (1.005-1.010); Urine Urobilinogen Normal (NORMAL); Urine pH 5.5 pH (5.0-7.0)
[2016-09-15 03:44] LABS: Urine Appearance Clear; Urine Bacteria None Seen; Urine Color Yellow; Urine RBC 0-5 /hpf (0-5); Urine WBC None Seen /hpf (0-5)
[2016-09-15] MEDS: POTASSIUM CHLORIDE IV PRN ×2 (04:09→04:42)
[2016-09-15] MEDS ORDERED: POTASSIUM CHLORIDE 40 MEQ/15 ML BTL PO ONE (04:40)
[2016-09-15 06:04] LABS: Anion Gap 13.8 mmol/L (6.8-13.8); BUN/Creatinine Ratio 30.6 (9.0-21.6); Carbon Dioxide 27.7 mmol/L (24-32.6); Estimated Creat Clear 38.9; Potassium 3.5 mmol/L (3.4-4.6)
[2016-09-15] MEDS ORDERED: HYDROcodone/ACETAMINOPHEN 1 EACH TABLET PO PRN (10:12)
[2016-09-15] MEDS ORDERED: ACETAMINOPHEN 325 MG TABLET PO PRN (10:12)
[2016-09-15] MEDS ORDERED: ALPRAZolam 0.25 MG TABLET PO PRN (10:12)
[2016-09-15] MEDS ORDERED: ALBUTEROL SULFATE 2.5 MG/3 ML VIAL.NEB IH PRN (10:27)
[2016-09-15] MEDS: INSULIN LISPRO 100 UNITS/ML VIAL SC SCH ×2 (11:34→17:10)
[2016-09-15] MEDS: ALBUTEROL SULFATE 2 MG PO SCH ×2 (12:43→17:06)
[2016-09-15] MEDS: SILDENAFIL CITRATE 20 MG TABLET PO SCH ×2 (12:44→16:32)
[2016-09-15] MEDS ORDERED: METOLAZONE 2.5 MG TABLET PO STA ×2 (14:45→15:11)
[2016-09-15] MEDS ORDERED: FUROSEMIDE IV ONE (15:15)
[2016-09-15] MEDS ORDERED: NORMAL SALINE IV ONE (15:15)
[2016-09-15] MEDS: FAMOTIDINE 20 MG TABLET PO SCH (16:32)
[2016-09-15] MEDS ORDERED: WARFARIN SODIUM 3 MG TABLET PO SCH (17:00)
[2016-09-15] MEDS ORDERED: ONDANSETRON HCL/PF 2 MG/ML VIAL IV PRN (19:17)
[2016-09-15] MEDS ORDERED: ROSUVASTATIN CALCIUM 10 MG TABLET PO SCH (21:00)
[2016-09-16 06:15] LABS: Anion Gap 13.7 mmol/L (6.8-13.8); BUN/Creatinine Ratio 28.6 (9.0-21.6); Calcium * 9.4 mg/dL (7.9-10.9); Carbon Dioxide 28.7 mmol/L (24-32.6); Estimated Creat Clear 39.5; Potassium 3.4 mmol/L (3.4-4.6)
[2016-09-16 06:40] LABS: Prothrombin Time (Patient) 15.3 Seconds (9.4-11.4)
[2016-09-16 06:57] LABS: INR 1.47 INR (0.90-1.10)
[2016-09-16] MEDS: INSULIN LISPRO 100 UNITS/ML VIAL SC SCH ×2 (06:58→12:13)
[2016-09-16] MEDS: FAMOTIDINE 20 MG TABLET PO SCH (07:00)
[2016-09-16] MEDS ORDERED: LEVOTHYROXINE SODIUM 100 MCG TABLET PO SCH (07:00)
--- NOTE | 2016-09-16 07:43 | DS ---
(1) Acute CHF Diagnosis(s): acute on chronic, combined diastolic and systolic. diuresed. will add spironolactone. Problem: Acute Qualifiers: Congestive heart failure type: unspecified congestive heart failure type Qualified Code(s): I50.9 - Heart failure, unspecified (2) Oropharyngeal dysphagia Diagnosis(s): vocal cord disorder S/P PEG insertion for feeding Problem: Acute (3) S/P carotid endarterectomy Diagnosis(s): s/p drainage and repair of CEA Problem: Acute (4) A-fib Diagnosis(s): rate controlled. Problem: Chronic Qualifiers: Atrial fibrillation type: chronic Qualified Code(s): I48.2 - Chronic atrial fibrillation (5) COPD (chronic obstructive pulmonary disease) Problem: Chronic Qualifiers: COPD type: chronic bronchitis Chronic bronchitis type: unspecified Qualified Code(s): J42 - Unspecified chronic bronchitis (6) Elevated troponin Diagnosis(s): likley due to increased demand ischemia Problem: Chronic (7) Atrial fibrillation Diagnosis(s): on amiodarone and anticoagulation Problem: Chronic Qualifiers: Atrial fibrillation type: unspecified Qualified Code(s): I48.91 - Unspecified atrial fibrillation (8) COPD (chronic obstructive pulmonary disease) Problem: Chronic Qualifiers: COPD type: unspecified COPD Qualified Code(s): J44.9 - Chronic obstructive pulmonary disease, unspecified (9) History of tricuspid valve repair Diagnosis(s): s/p repair with 28 Tissue physiologic ring Problem: Chronic (10) Hx of mitral valve replacement with tissue graft Diagnosis(s): s/p MVR with 29 Epic tissue valve Problem: Chronic (11) Hyperlipidemia Problem: Chronic Qualifiers: Hyperlipidemia type: unspecified Qualified Code(s): E78.5 - Hyperlipidemia , unspecified (12) Hypertension Problem: Chronic Qualifiers: Hypertension type: essential hypertension Qualified Code(s): I10 - Essential (primary) hypertension (13) Hypothyroidism Diagnosis(s): will increase her levothyroxine to 125 mcg PO qd. Problem: Chronic Qualifiers: Hypothyroidism type: acquired Qualified Code(s): E03.9 - Hypothyroidism, unspecified (14) PVD (peripheral vascular disease) Problem: Chronic (15) Pulmonary hypertension Diagnosis(s): on sildenefil. Problem: Chronic Description of Stay: Manuela Camarena is a 66-yr-old WF with a PMH of: Anemia, Athritis, Carotid Stenosis, CHF, COPD, CAD, HTN, HLD, GERD, PVD who was admitted on 09/15/2016 for SOB/B/L leg edema. History on admission was mostly provided by pt's spouse and daughter. Pt has an extensive cardiac /open heart surgery history involving: Mitral Valve and Tricuspid valve repair, CABG which was done on 07/22/16. 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 She was discharged on from the [facility]. They stated that she developed some complications from the surgery which affected her vocal cords, hence her swallowing. She ended up developing Oropharyngeal Dysphagia as a result and a Percutaneous Endoscopic Gastrostomy was placed on 09/13. Spouse states that she still had increased swelling on her legs on the day of discharge from the [facility]. Pt reports that since arriving home from hospital in the morning, she got SOB and it seemed to get worse as the day went by. She just put up with it, but then after she went to bed at night, she could could not sleep due to severe SOB. She alerted her family who brought her to the [facility] ER. The CXR obtained at the ED did not have did not have any acute findings. However, her BNP was elevated at 22,780. Her EKG showed Afib and LBBB but unchanged from previous one. The Troponin was elevated at 0.805 and repeat after 2 hrs had trended down to 0.727. She received IV Lasix 120mg, and was able to diurese 450ml. At the time of physical exam, she was in no distress, appears calm and not requiring any oxygen supplementation, but still noted to have significant 4 +tibial/pedal edema. Off note, she was admitted at the [facility] on 08/18 for CHF exacerbation evidenced with increasing leg swelling and SOB. She was discharged on 08/21 after diuresing well with IV Lasix. She was admitted and serial troponin showed it trend down a little likely due to increased demand ischemia from her CHF. She does not complain of chest pain. She diuresed a little over 2 Liters. Discussed case with her local rubber boots and shoes repairer. He would like to see her in 1 week. He agrees with adding spironolactone to her Lasix. Procedures Performed: none Discharge Disposition: Home self care Disposition: Home self-care Condition: Fair Discharge Activity: Activity as tolerated Discharge Diet: Low salt, Tube Feedings Referrals: Av Hodges MD [Primary Care Provider] - Additional Patient Instructions (free text): Follow up with me in 2 weeks. Please make an appointment with Dr. Mae, cardiology , [facility] in 1 week. Please follow her tube feedings instructions as per [facility]. She needs to do labs on and wait for my call for her coumadin. Prescriptions (Any new or edited meds): Levothyroxine Sodium [Synthroid] 125 mcg PO DAILY@0700 #30 tablet Potassium Chloride [Klor-Con] 10 meq PO DAILY #30 packet Spironolactone [Aldactone] 25 mg PO DAILY #30 tablet Warfarin Sodium [Coumadin] 5 mg PO DAILY@1700 #14 tablet Complete Home Medications List: Complete Home Medication List: ALPRAZolam [Xanax] 0.25 mg PO TID PRN 08/18/16 Acetaminophen [Tylenol] 325 mg PO Q4H PRN 08/18/16 Albuterol Sulfate 2 mg PO TID 08/18/16 Albuterol Sulfate [Proair Respiclick] 90 mcg IH Q6H PRN 08/18/16 Atorvastatin Calcium [Lipitor] 20 mg PO DAILY 08/18/16 Clopidogrel Bisulfate [Plavix] 75 mg PO DAILY 08/18/16 Digoxin [Lanoxin] 62.5 mcg PO DAILY 08/18/16 HYDROcodone/ACETAMINOPHEN [Stetson 5-325] 1 tab PO Q6H PRN 08/18/16 Metoprolol Tartrate [Lopressor] 12.5 mg PO BID 08/18/16 Sildenafil Citrate [Revatio] 5 mg PO TID 08/18/16 Amiodarone HCl [Cordarone] 200 mg PO DAILY #30 tablet 08/21/16 Furosemide [Lasix] 40 mg PO BID #60 tablet 08/21/16 Famotidine [Pepcid] 20 mg PO BID 09/14/16 Docusate Sodium 100 mg PO BID 09/15/16 Furosemide [Lasix] 60 mg PO BID 09/15/16 Sennosides 8.6 mg PO BID PRN 09/15/16 Levothyroxine Sodium [Synthroid] 125 mcg PO DAILY@0700 #30 tablet 09/16/16 Potassium Chloride [Klor-Con] 10 meq PO DAILY #30 packet 09/16/16 Spironolactone [Aldactone] 25 mg PO DAILY #30 tablet 09/16/16 Warfarin Sodium [Coumadin] 5 mg PO DAILY@1700 #14 tablet 09/16/16 Amb Orders for Discharge: Basic Metabolic Panel Time Frame: 09/19/16, Location: Determined By Patient BNP * Time Frame: 09/19/16, Location: Determined By Patient Prothrombin Time Time Frame: 09/19/16, Location: Determined By Patient
[2016-09-16 08:36] LABS: Digoxin 0.6 ng/mL (0.5-2.0); T4 Free * 0.96 ng/dL (0.76-1.46); TSH * 27.232 uIU/mL (0.358-3.74)
[2016-09-16] MEDS ORDERED: DIGOXIN 0.125 MG TABLET PO SCH (09:00)
[2016-09-16] MEDS ORDERED: AMIODARONE HCL 200 MG TABLET PO SCH (09:00)
[2016-09-16] MEDS ORDERED: CLOPIDOGREL BISULFATE 75 MG TABLET PO SCH (09:00)
[2016-09-16] MEDS: SILDENAFIL CITRATE 20 MG TABLET PO SCH ×2 (09:43→14:05)
[2016-09-16] MEDS: ALBUTEROL SULFATE 2 MG PO SCH (10:29)
[2016-09-16] MEDS ORDERED: SPIRONOLACTONE 25 MG TABLET PO SCH (11:30)
[2016-09-16] MEDS ORDERED: ALBUTEROL SULFATE 2 MG PO SCH (13:00)
[2016-09-16 14:31] VITALS: BP 109/81
[2016-09-16] MEDS ORDERED: WARFARIN SODIUM 5 MG TABLET PO SCH (17:00)
[2016-09-17] MEDS ORDERED: LEVOTHYROXINE SODIUM 125 MCG TABLET PO SCH (07:00)
== END 2016-09-16 15:20 | disposition home or self-care (01) ==
LOC: ER 22:54 → MS 09-15 02:18
PROVIDERS: ADMIT Internal Medicine; ATTEND Internal Medicine
DX: I50.43 Acute on chronic combined systolic (congestive) and diastolic (congestive) heart failure (principal); R13.12 Dysphagia, oropharyngeal phase; I48.2 Chronic atrial fibrillation; Z79.01 Long term (current) use of anticoagulants; J44.9 Chronic obstructive pulmonary disease, unspecified; Z87.891 Personal history of nicotine dependence; Z95.4 Presence of other heart-valve replacement; R78.89 Finding of other specified substances, not normally found in blood; J42 Unspecified chronic bronchitis; I10 Essential (primary) hypertension; E78.5 Hyperlipidemia, unspecified; E03.9 Hypothyroidism, unspecified; I73.9 Peripheral vascular disease, unspecified; I27.2 Other secondary pulmonary hypertension; Z95.1 Presence of aortocoronary bypass graft; Z93.1 Gastrostomy status
CPT/HCPCS: 36415; 71020; 80048; 80053; 80162; 81001; 83880; 84439; 84443; 84484; 85025; 85610; 87081; 93005; 94760; 96365; 96375; 96376; 99284; G0378

== ENCOUNTER 2016-09-19 16:28 | Inpatient (IN) | payer MEDICAID ==
--- OUTSIDE RECORDS SUMMARY | 2016-09-19 16:56 | XMS REPORT | Continuity of Care Document ---
:1950 Author Organization [facility] ([facility]) Address [address] [place] [address] Phone [phone] Care Team Providers Name Role Phone Lidadeliorosa mAv Primary Care Provider [phone] Source Comments This disclosure is being made pursuant to the Care Everywhere program, applicable federal and state laws, and may not contain all informaitonavailable regarding this patient.[facility] ([facility]) Active Allergies and Adverse Reactions Allergen [...] Encounters Date Type Specialty Providers Description 03/14/2017 Hospital Radiology Encounter 09/16/2016 Orders/Notes Otolaryngology Michelet Cabral Dx: Leslie Blum MD (Primary Dx) 09/15/2016 Nurse Triage General Care Gisela Armstrong Chief Comp: IP Inpatient - Adult C, back grinder Follow-up Call 09/13/2016 Telephone Otolaryngology Michelet Cabral Chief Comp: Other MD Viktoria 09/12/2016 Surgery Radiology Darrel Murray IR PERC GASTROSTOMY MD TUBE PLACEMENT 09/09[facility]2016 [facility], Chief Comp: Patient Encounter MD Ricky Reported Reason For Visit 09/09/2016 [facility] Fabian, Chief Comp: Patient Encounter Chuy Jeronimo MD Reported Reason For Kareem, Visit MD Ricky 09/06/2016 Office Visit Heart and Vascular Default, Other Dx: S/P MVR ( mitral Billg - Defo valve replacement) Calos, (Primary Dx) MD Shannon 09/04/2016 [facility] Neurology Migdalia Sloan, Chief Comp: Patient Encounter MD Reported Reason For Kareem, Visit MD Ricky 09/04/2016 [facility], Dx: Wound infection - Encounter Inpatient - Adult MD Ricky after surgery, 09/14/2016 Wu Michaels initial encounter MD Viktoria (Primary Dx) 09/04/2016 Surgery General Surgery [facility], Resection of MD Ricky infected Right Carotid Artery status post carotidendarterectom y, replacement with interposition graft from right common carotid artery to right internal carotic artery using right autologous saphenous vein. 08/26/2016 Anesthesia Event General Surgery Vicki Bean RN 08/18/2016 Hospital Patient Services Encounter 08/15/2016 [facility], Dx: Wound infection Encounter MD Ricky after surgery, initial encounter 08/15/2016 [facility], Chief Comp: Patient Encounter MD Ricky Reported Reason For Visit 08/15/2016 [facility], Chief Comp: Patient Encounter MD Ricky Reported Reason For Visit 08/15/2016 Office Visit Srg Vascular [facility], Dx: Wound infection MD Ricky after surgery, initial encounter (Primary Dx) 08/15/2016 Ancillary Orders Srg Vascular [facility], Dx: Wound infection Marques Almazan DDS after surgery, initial encounter (Primary Dx) 08/02/2016 Pharmacy Visit 08/02/2016 Telephone [place], Chief Comp: Marco Byrd CPhT Prior Authorization 08/01/2016 [facility] Neurology Jamaica Gonzalez Chief Comp: Patient Encounter MD Sherman Reported Reason For Visit 08/01/2016 Ophth Exam Ophthalmology - Loyd Soler MD 07/22/2016 [facility] Calos, Chief Comp: Patient Encounter MD Shannon Reported Reason For Visit 07/22/2016 Surgery General Surgery Calos, MITRAL and TRICUSPID MD Shannon VALVE REPLACEMENT REPAIR 07/19/2016 [facility] Cal[place], Chief Comp: Patient Encounter MD Shannon Reported Reason For Visit 07/19/2016 [facility] Cardiology Ramiro Martinez Chief Comp: Patient Encounter MD Richard Reported Reason For Visit 07/19/2016 Orders/Notes Heart and Vascular Shannon Live MD 07/09/2016 Office Visit Heart and Vascular Calos, Dx: Mitral valve MD Shannon disorder 07/09/2016 [facility] Anesthesiology Default, Other Dx: Hematoma Encounter Billg - Defo complicating a Calos, procedure (Primary MD Shannon Dx) 07/09/2016 [facility], Chief Comp: Patient Encounter MD Casi Reported Reason For Visit 07/09/2016 [facility] Jeni, Dx: Rheumatic mitral Encounter MD Casi regurgitation 07/09/2016 [facility], Dx: Rheumatic mitral Encounter MD Casi regurgitation 07/09/2016 [facility] Default, Other Chief Comp: Patient Encounter Billg - Defo Reported Reason For Kareem, Visit MD Ricky 07/09/2016 Office Visit Srg Vascular Kareem, Dx: 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 (Primary Dx) 07/05/2016 Orders/Notes Heart and Vascular Petra Swann, Dx: Mitral valve JOURNEYMAN ELECTRICIAN PV INSTALLER disorder (Primary Dx) 07/04/2016 Office Visit Srg Vascular Kareem, Dx: Carotid artery MD Ricky stenosis, asymptomatic, right (Primary Dx) 07/04/2016 [facility] Rad[facility] Joaquín Enciso, Dx: Pre-procedure Encounter MD lab exam (Primary Dx) 07/04/2016 Office Visit Pathology Kareem, Dx: Pre-procedure MD Ricky lab exam Lab Services, Irl Social History Tobacco Use Types Packs/Day Years [...] Patient - Defo Reported Reason For [address] [address] [phone] (Fax) 09/27/2016 Appointment Heart and Vascular Default, Other Billg - Defo [address] [place] [address] [phone] (Fax) Chief Comp: Patient Shannon Live MD [address] [place] [address] [phone] (Fax) Reported Reason For Visit 09/27/2016 Appointment Vascular Surgery Chuy Peralta, Chief Comp: Patient Reported Reason For [address] [address] [phone] (Fax) 09/27/2016 Appointment Vascular Surgery Ricky Serna MD [address] [place] [address] [phone] (Fax) Chief Comp: Patient aCsi Ngo MD [address] [place] [address] [phone] (Fax) Reported Reason For Visit 03/14/2017 Surgery Radiology Radiologist, Rad IR PERC GASTROSTOMY Invasive TUBE CHECK & CHANGE [address] [place] [address] [phone] (Fax) Health Maintenance Due Date Last Done [...] disorder Results for this BILLING STAFF PM GUIDE DOG TRAINER 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 S/P mitral valve repair S/P tricuspid valve repair TSG OR CASE Routine 07/23/2016 7:44 Rheumatic mitral Results for this PM GUIDE DOG TRAINER regurgitation procedure are in the results section. CORONARY ARTERY 07/22/2016 8:15 Rheumatic mitral BYPASS GRAFT, AM GUIDE DOG TRAINER regurgitation ARTERY/VEIN Case Notes MVR/TVR, possible CABG-full sternotomy-on bypas-supine- [id number] MITRAL and TRICUSPID VALVE 07/22/2016 8:15 AM GUIDE DOG TRAINER Rheumatic mitral REPLACEMENT REPAIR regurgitation Case Notes MVR/TVR, possible CABG-full sternotomy-on bypas-supine- [id number] Results from Last 3 Months PT/INR (PROTHROMBIN [...] IMPRESSION: 1. Successful placement of a 12 [place] Rodarte-Ogelsby locking pigtail gastrostomy tube with no [...] 1 mg glucagon IV PHYSICIANS: Dr. Murray SALES REPRESENTATIVE SUPERVISOR: Dr. Kang PULSES:Intact bilaterally COMPLICATIONS:None immediate BLOOD [...] and 12 F soft dilators. A 12 Kosovan Rodarte-Ogelsby locking pigtail catheter was advanced into [...] 1 mg glucagon IV PHYSICIANS: Dr. Murray SALES REPRESENTATIVE SUPERVISOR: Dr. Kang PULSES: Intact bilaterally COMPLICATIONS: None [...] and 12 F soft dilators. A 12 Kosovan Rodarte-Ogelsby locking pigtail catheter was advanced into [...] IMPRESSION: 1. Successful placement of a 12 [place] Rodarte-Ogelsby locking pigtail gastrostomy tube with no [...] Specimen Blood CT ABDOMEN& PELVIS W CONTRAST ([id number]) (09/10/2016 12:05 PM) Impressions Impression: 1. Extensive atherosclerotic disease. 2. Bolus timing of this exam suggests poor cardiac output. 3. Small volume deep pelvic ascites. 4. Small left, moderate right pleural effusion. Narrative Procedure: CT ABDOMEN & PELVIS W CONTRAST ([id number]) Clinical Indication: Needs PEG tube, evaluate anatomy. [...] Procedure: CT ABDOMEN & PELVIS W CONTRAST ([id number]) Clinical Indication: Needs PEG tube, evaluate anatomy. [...] 4. Small left, moderate right pleural effusion. VAS CAROTID DUPLEX SCAN (UNILATERAL) (09/09/2016 3:40 PM)Only the most recent of2 resultswithin the [...] Donavon, Incoming Imaging Results - Nica Sep 12, 2016 3:07 PM CDT Procedure: [...] ligated. The valves were lysed with a [employer] valvulotome.The vein configured non reversed and was [...] anastomosis.We then turned attention to the infected [place] carotid.There was an inflammatory mass involving the [...] Adams Nelson MD Vascular surgery resident Pager [phone] C. DIFFICILE TOXIN SCREEN (09/07/2016 7:03 AM) [...] included. Component Value Range Blood Coding System [id number] Blood Product Volume 325 Blood Product ABORH A Neg Blood Unit Number [id number] BLOOD DISPENSE STATUS ISS Blood Product Type Red Blood Cells Blood Product Code I1326H09 LACTIC ACID, WHOLE BLOOD ([facility]ITICAL [facility]ARE LAB[facility]ATORY) [...] Value Range Case Report Surgical Pathology Case: [id number] Authorizing Provider:Ricky Serna MDCollected: 09/04/2016 06:41 PM Ordering Location: Main OR Received:09/05/2016 07:38 AM Pathologist: Bonnie Live MD Specimen:Blood vessel, 1) Right common carotid artery Diagnosis Carotid artery, right common, endarterectomy: Atherosclerotic plaque (gross only) I have personally reviewed this case and edited the report as necessary. Gross Description A.Received fresh in a container labeled Migue Manuela Lozano, hospital number and "1) Right common carotid [...] Specimen Blood AEROBIC CULTURE, ROUTINE (09/04/2016 3:32 PM) Component Value Range Culture No Growth Gram [...] Results - FriAug 02, 2016 6:10 PM GUIDE DOG TRAINER Procedure: CHEST- PA & LATERAL Clinical Indication: [...] mEq/L Specimen Blood CT BRAIN WO CONTRAST ([id number]) (08/01/2016 6:29 PM) Narrative Procedure: CT BRAIN WO CONTRAST ([id number]) Indication: Vision changes, evaluate for stroke. Technique: [...] emergent preliminary findings reported by the residential recycle driver ethnographic materials conservator. Procedure Note Donavon, Incoming Imaging Results - FriAug 02, 2016 9:33 AM GUIDE DOG TRAINER Procedure: CT BRAIN WO CONTRAST ([id number]) Indication: Vision changes, evaluate for stroke. Technique: [...] emergent preliminary findings reported by the residential recycle driver ethnographic materials conservator. MICROSCOPIC URINALYSIS (08/01/2016 12:24 PM)Only the most [...] Clear Clear pH, Urine 5.0 <9.0 Spec [place], Urine 1.005 1.000-1.030 Glucose, Urine Negative Negative [...] Abnormality Status --------- ------ URINALYSIS WITH REFLEX C...[[id number]]AbnormalFinal result MICROSCOPIC URINALYSIS[[id number]] Abnormal Final result URINE CULTURE, REFLEXED[[id number]] Please view results for these tests on [...] can College of Cardiology Foundation (ACCF) / [place] Heart Association (AHA ) 2013 guidelines recommend [...] verify the correct patient, procedure, equipment, manager sales support and site/side marked as required Anesthesia [...] Procedure Note FriJul 22, 2016 12:00 AM GUIDE DOG TRAINER Date: 07/22/2016 LOCATION: Main OR room 7. [...] Live MD FELLOW SURGEON: Drew Humphrey M.D. SALES REPRESENTATIVE SUPERVISOR: Elier Madrigal RN. INDICATIONS: Manuela Graham is [...] Shannon Live MD Dictated Date/Time: 07/23/2016 16:43:38 Inclusion Special Education Teacher Initials: NTS Voice Job ID : [id number] PLASMA DISPENSE FROM BLOOD BANK (07/22/2016 5:08 PM)Only the most recent of4 resultswithin the time period is included. Component Value Range Blood Coding System [id number] Blood Product Volume 309 Blood Product ABORH A Pos Blood Unit Number [id number] BLOOD DISPENSE STATUS ISS Blood Product Type FFP Blood Product Code P6923I97 Blood Coding System SFOY880 Blood Product Volume 306 Blood Product ABORH A Pos Blood Unit Number [id number] BLOOD DISPENSE STATUS RET Blood Product Type FFP Blood Product Code L2960L76 FIBRINOGEN (07/22/2016 5:01 PM)Only the most recent of5 resultswithin the time period is included. Component Value Range Fibrinogen 273 180-400 mg/dL Specimen Blood CRYOPRECIPITATE DISPENSE FROM BLOOD BANK (07/22/2016 3:40 PM) Component Value Range Blood Coding System SIRL643 Blood Product Volume 96 Blood Product ABORH A Pos Blood Unit Number [id number] BLOOD DISPENSE STATUS ISS Blood Product Type Cryoprecipitate Blood Product Code Z6849C28 PLATELETS DISPENSE FROM BLOOD BANK (07/22/2016 3:29 PM)Only the most recent of2 resultswithin the time period is included. Component Value Range Blood Coding System UNGM737 Blood Product Volume 258 Blood Product ABORH AB Neg Blood Unit Number [id number] BLOOD DISPENSE STATUS ISS Blood Product Type Platelets Blood Product Code R8362O60 THROMBOELASTOGRAPH (TEG) (07/22/2016 2:37 PM)Only the most [...] for MV Replacement, TV Repair, and CABG Crossing Guard Matteo An Interpreting Physician Matteo An MD electronically signed on 2016-07-23 16:53:36.97 ECHO ADULT - STORE ECHOCARDIOGRAM ONLY (07/19/2016 11:14 AM) Component Value Range Patient Height (cm) 160 cm Patient Weight (kg) 72.1 kg BSA (meters^2) 1.8 m^2 Procedures (0232580A) RVDd 3.5 cm IVSd 1.2 cm LVIDd [...] Narrative Test methodology:PCR amplification; Xpert SA Test (ObjectVideo) CHOLESTEROL (07/09/2016 11:16 AM) Component Value Range [...] Specimen Blood CT ANGIO HEAD& NECK W/WO ([id number], 72959) (07/04/2016 10:49 AM) Impressions Impression: 1. Postsurgical [...] to: PERSON CONTACTED:MIKE Suarez DATE: 07/04/2016 TIME CALLED:[id number] PHONE/PAGER:[phone] Narrative Procedure: CT ANGIO HEAD & NECK W/WO ([id number], 02487) Indication: Draining from right carotid endarterectomy incision Exam: Axial CT angiogram of the neck and [place] after the uneventful administration of [...] Procedure Note Donavon, Incoming Imaging Results - [facility] Jul 04, 2016 1:57 PM GUIDE DOG TRAINER Procedure: CT ANGIO HEAD & NECK W/WO ([id number], [id number]) Indication: Draining from right carotid endarterectomy incision Exam: Axial CT angiogram of the neck and [place] after the uneventful administration of [...] CONTACTED: MIKE Suarez DATE: 07/04/2016 TIME CALLED: [phone] PHONE/PAGER: [phone] IRL RADIOLOGY CREATININE, POINT OF CARE (07/04/2016 9:53 AM) Component Value Range IRL Radiology Creatinine, Point of Care 1.4(H) 0.5-1.0 mg/dL Calculated GFR 38(L) >60 mL/min/1.73 m2 Specimen Blood
[2016-09-19 17:15] LABS: Hematocrit 33.4 % (37.0-47.0); Hemoglobin 9.9 gm/dL (12.5-16.0); Mean Cell Volume 91.3 fl (78-100); Mean Corpuscular Hgb Conc 29.6 g/dl (32-36); Mean Platelet Volume 9.6 fl (6.0-9.5); Platelet Count 229 K/mm3 (150-450); Red Blood Count 3.66 M/mm3 (4.2-5.4); Red Cell Distribution Width 20.7 % (11.5-14.0); White Blood Count 6.4 K/mm3 (4.0-10.5)
[2016-09-19 17:17] LABS: Total Cells Counted 100
[2016-09-19 17:28] LABS: INR 3.45 INR (0.90-1.10); Partial Thrombolplastin Time 33.6 Seconds (24-32); Prothrombin Time (Patient) 35.9 Seconds (9.4-11.4)
[2016-09-19 17:35] LABS: Albumin * 3.5 gm/dl (3.4-5.0); Anion Gap 13.6 mmol/L (6.8-13.8); BUN/Creatinine Ratio 23.3 (9.0-21.6); Bilirubin, Total 1.3 mg/dL (0.0-1.1); Ca. Corrected For Albumin 9.6 mg/dL (8.4-10.2); Calcium * 9.5 mg/dL (7.9-10.9); Potassium 4.6 mmol/L (3.4-4.6); Total Protein 8.2 gm/dL (6.2-8.2)
[2016-09-19 17:36] LABS: Atypical (Reactive) Lymph 6 % (0-2); Band 8 % (0-2.0); Lymphocyte 12 % (20-51); Monocyte 10 % (0-9); Neutrophil 64 % (42-75); Neutrophil # 4.1 K/mm3 (1.3-6.0); Platelet Estimate Normal (NORMAL); RBC Morphology Normal (NORMAL); Troponin I 0.472 ng/ml (0.00-0.10)
[2016-09-19] MEDS ORDERED: FUROSEMIDE 10 MG/ML VIAL IV ONE (17:49)
[2016-09-19] MEDS ORDERED: ALBUTEROL SULFATE/IPRATROPIUM 3 ML NEBU IH ONE ×2 (17:49→17:52)
[2016-09-19] MEDS ORDERED: FUROSEMIDE 10 MG/ML VIAL ONE (17:52)
[2016-09-19 17:56] LABS: Digoxin 1.1 ng/mL (0.5-2.0)
--- OUTSIDE RECORDS SUMMARY | 2016-09-19 18:30 | XMS REPORT | Continuity of Care Document ---
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 Follow-up Call 09/13/2016 Telephone Otolaryngology Michelet Cabral Chief Comp: Other MD Viktoria 09/12/2016 Surgery Radiology Darrel Murray IR PERC GASTROSTOMY MD TUBE PLACEMENT 09/09/2016 [facility], Chief Comp: Patient Encounter MD Ricky Reported Reason For Visit 09/09/2016 [facility] Fabian, Chief Comp: Patient Encounter Chuy Jeronimo MD Reported Reason For Kareem, Visit MD Ricky 09/06/2016 Office Visit Heart and Vascular Default, Other Dx: S/P MVR ( mitral Billg - Defo valve replacement) Calos, (Primary Dx) MD Shannon 09/04/2016 [facility] Neurology Migdalia Sloan, Chief Comp: Patient Encounter MD Reported Reason For Kareem, Visit MD Ricky 09/04/2016 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 08/26/2016 Anesthesia Event General Surgery Vicki Bean RN 08/18/2016 Hospital Patient Services Encounter 08/15/2016 [facility], Dx: Wound infection Encounter MD Ricky after surgery, initial encounter 08/15/2016 [facility], Chief Comp: Patient Encounter MD Ricky Reported Reason For Visit 08/15/2016 [facility], Chief Comp: Patient Encounter MD Ricky Reported Reason For Visit 08/15/2016 Office Visit Srg Vascular [facility], Dx: Wound infection MD Ricky after surgery, initial encounter (Primary Dx) 08/15/2016 [facility], Dx: Wound infection Marques Almazan DDS after surgery, initial encounter (Primary Dx) 08/02/2016 Pharmacy Visit 08/02/2016 Telephone [place], Chief Comp: Marco Byrd CPhT Prior Authorization 08/01/2016 [facility] Neurology Jamaica Gonzalez Chief Comp: Patient Encounter MD Sherman Reported Reason For Visit 08/01/2016 Ophth Exam Ophthalmology - Loyd Soler MD 07/22/2016 [facility] Calos, Chief Comp: Patient Encounter MD Shannon Reported Reason For Visit 07/22/2016 Surgery General Surgery Calos, MITRAL and TRICUSPID MD Shannon VALVE REPLACEMENT REPAIR 07/19/2016 [facility] [place], Chief Comp: Patient Encounter MD Shannon Reported Reason For Visit 07/19/2016 [facility] Cardiology Ramiro Martinez Chief Comp: Patient Encounter MD Richard Reported Reason For Visit 07/19/2016 Orders/Notes Heart and Vascular Shannon Live MD 07/09/2016 Office Visit Heart and Vascular Calos, Dx: Mitral valve MD Shannon disorder 07/09/2016 [facility] Anesthesiology Default, Other Dx: Hematoma Encounter Billg - Defo complicating a Calos, procedure (Primary MD Shannon Dx) 07/09/2016 [facility] Heart [facility], Chief Comp: Patient Encounter MD Casi Reported Reason For Visit 07/09/2016 [facility] Heart and Vascular Jeni, Dx: Rheumatic mitral Encounter MD Casi regurgitation 07/09/2016 [facility] Heart [facility], Dx: Rheumatic mitral Encounter MD Casi regurgitation 07/09/2016 [facility] Heart and Vascular Default, Other Chief Comp: Patient Encounter Billg - Defo Reported Reason For Kareem, Visit MD Ricky 07/09/2016 Office Visit Srg Vascular Kareem, Dx: 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 (Primary Dx) 07/05/2016 Orders/Notes Heart and Vascular Petra Swann, Dx: 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 (Primary Dx) 07/04/2016 Office Visit Srg Vascular Kareem, Dx: Carotid artery MD Ricky stenosis, asymptomatic, right (Primary Dx) 07/04/2016 [facility] Radiology Joaquín Enciso, Dx: Pre-procedure Encounter [...] Patient - Defo Reported Reason For [address] [place] [address] [phone] (Fax) 09/27/2016 Appointment Heart and Vascular Default, Other Billg - Defo [address] [place] [address] [phone] (Fax) Chief Comp: Patient Shannon Live MD [address] [place] [address] [phone] (Fax) Reported Reason For Visit 09/27/2016 Appointment Vascular Surgery Chuy Peralta, Chief Comp: Patient Reported Reason For [address] [place] [address] [phone] (Fax) 09/27/2016 Appointment Vascular Surgery Ricky Serna MD [address] [place] [address] [phone] (Fax) Chief Comp: Patient Casi Ngo MD [address] [place] [address] [phone] (Fax) Reported Reason For Visit 03/14/2017 Surgery Radiology Radiologist, Rad IR PERC GASTROSTOMY Invasive TUBE CHECK & CHANGE [address] [place] [address] [phone] (Fax) Health Maintenance Due Date Last Done [...] disorder Results for this BILLING STAFF PM SWITCHBOARD OPERATOR ASSISTANT 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 S/P mitral valve repair S/P tricuspid valve repair TSG OR CASE Routine 07/23/2016 7:44 Rheumatic mitral Results for this PM SWITCHBOARD OPERATOR ASSISTANT regurgitation procedure are in the results section. CORONARY ARTERY 07/22/2016 8:15 Rheumatic mitral BYPASS GRAFT, AM SWITCHBOARD OPERATOR ASSISTANT regurgitation ARTERY/VEIN Case Notes MVR/TVR, possible CABG-full sternotomy-on bypas-supine- [id number] MITRAL and TRICUSPID VALVE 07/22/2016 8:15 AM SWITCHBOARD OPERATOR ASSISTANT Rheumatic mitral REPLACEMENT REPAIR regurgitation Case Notes MVR/TVR, possible CABG-full sternotomy-on bypas-supine- [id number] Results from Last 3 Months PT/INR (PROTHROMBIN [...] IMPRESSION: 1. Successful placement of a 12 Japanese Rodarte-Ogelsby locking pigtail gastrostomy tube with no [...] 1 mg glucagon IV PHYSICIANS: Dr. Murray BRASS MOLDER HELPER: Dr. Kang PULSES:Intact bilaterally COMPLICATIONS:None immediate BLOOD [...] and 12 F soft dilators. A 12 Japanese Rodarte-Ogelsby locking pigtail catheter was advanced into [...] 1 mg glucagon IV PHYSICIANS: Dr. Murray BRASS MOLDER HELPER: Dr. Kang PULSES: Intact bilaterally COMPLICATIONS: None [...] and 12 F soft dilators. A 12 Japanese Rodarte-Ogelsby locking pigtail catheter was advanced into [...] IMPRESSION: 1. Successful placement of a 12 Japanese Rodarte-Ogelsby locking pigtail gastrostomy tube with no [...] Specimen Blood CT ABDOMEN& PELVIS W CONTRAST ([id number]) (09/10/2016 12:05 PM) Impressions Impression: 1. Extensive atherosclerotic disease. 2. Bolus timing of this exam suggests poor cardiac output. 3. Small volume deep pelvic ascites. 4. Small left, moderate right pleural effusion. Narrative Procedure: CT ABDOMEN & PELVIS W CONTRAST ([id number]) Clinical Indication: Needs PEG tube, evaluate anatomy. [...] Procedure: CT ABDOMEN & PELVIS W CONTRAST ([id number]) Clinical Indication: Needs PEG tube, evaluate anatomy. [...] ligated. The valves were lysed with a Slide valvulotome.The vein configured non reversed and was [...] anastomosis.We then turned attention to the infected [place] carotid.There was an inflammatory mass involving the [...] Adams Nelson MD Vascular surgery resident Pager [phone] C. DIFFICILE TOXIN SCREEN (09/07/2016 7:03 AM) [...] included. Component Value Range Blood Coding System [id number] Blood Product Volume 325 Blood Product ABORH A Neg Blood Unit Number [id number] BLOOD DISPENSE STATUS ISS Blood Product Type Red Blood Cells Blood Product Code S3364U74 LACTIC ACID, WHOLE BLOOD ([facility]) [...] Value Range Case Report Surgical Pathology Case: [id number] Authorizing Provider:Ricky Serna MDCollected: 09/04/2016 06:41 PM [...] Results - FriAug 02, 2016 6:10 PM SWITCHBOARD OPERATOR ASSISTANT Procedure: CHEST- PA & LATERAL Clinical Indication: [...] mEq/L Specimen Blood CT BRAIN WO CONTRAST ([id number]) (08/01/2016 6:29 PM) Narrative Procedure: CT BRAIN WO CONTRAST ([id number]) Indication: Vision changes, evaluate for stroke. Technique: [...] and emergent preliminary findings reported by the international affairs vice president environmental programs specialist. Procedure Note Donavon, Incoming Imaging Results - FriAug 02, 2016 9:33 AM SWITCHBOARD OPERATOR ASSISTANT Procedure: CT BRAIN WO CONTRAST ([id number]) Indication: Vision changes, evaluate for stroke. Technique: [...] and emergent preliminary findings reported by the international affairs vice president environmental programs specialist. MICROSCOPIC URINALYSIS (08/01/2016 12:24 PM)Only the most [...] Clear Clear pH, Urine 5.0 <9.0 Spec [place], Urine 1.005 1.000-1.030 Glucose, Urine Negative Negative [...] Abnormality Status --------- ------ URINALYSIS WITH REFLEX C...[[id number]]AbnormalFinal result MICROSCOPIC URINALYSIS[[id number]] Abnormal Final result URINE CULTURE, REFLEXED[[id number]] Please view results for these tests on [...] can College of Cardiology Foundation (ACCF) / [place] [employer] (AHA ) 2013 guidelines recommend [...] to verify the correct patient, procedure, equipment, java support engineer and site/side marked as required Anesthesia (see [...] Procedure Note FriJul 22, 2016 12:00 AM SWITCHBOARD OPERATOR ASSISTANT Date: 07/22/2016 LOCATION: Main OR room 7. [...] Live MD FELLOW SURGEON: Drew Humphrey M.D. BRASS MOLDER HELPER: Elier Madrigal RN. INDICATIONS: Manuela Graham is [...] Shannon Live MD Dictated Date/Time: 07/23/2016 16:43:38 Open Pit Quarry Supervisor Initials: NTS Voice Job ID : [id number] PLASMA DISPENSE FROM BLOOD BANK (07/22/2016 5:08 PM)Only the most recent of4 resultswithin the time period is included. Component Value Range Blood Coding System [id number] Blood Product Volume 309 Blood Product ABORH A Pos Blood Unit Number [id number] BLOOD DISPENSE STATUS ISS Blood Product Type FFP Blood Product Code B6080B72 Blood Coding System GKSG156 Blood Product Volume 306 Blood Product ABORH A Pos Blood Unit Number [id number] BLOOD DISPENSE STATUS RET Blood Product Type FFP Blood Product Code X9711Y55 FIBRINOGEN (07/22/2016 5:01 PM)Only the most recent of5 resultswithin the time period is included. Component Value Range Fibrinogen 273 180-400 mg/dL Specimen Blood CRYOPRECIPITATE DISPENSE FROM BLOOD BANK (07/22/2016 3:40 PM) Component Value Range Blood Coding System HMGH791 Blood Product Volume 96 Blood Product ABORH A Pos Blood Unit Number [id number] BLOOD DISPENSE STATUS ISS Blood Product Type Cryoprecipitate Blood Product Code J7815C02 PLATELETS DISPENSE FROM BLOOD BANK (07/22/2016 3:29 PM)Only the most recent of2 resultswithin the time period is included. Component Value Range Blood Coding System UJCT905 Blood Product Volume 258 Blood Product ABORH AB Neg Blood Unit Number [id number] BLOOD DISPENSE STATUS ISS Blood Product Type Platelets Blood Product Code L4575V74 THROMBOELASTOGRAPH (TEG) (07/22/2016 2:37 PM)Only the most [...] for MV Replacement, TV Repair, and CABG Avionics Systems Technician Matteo An Interpreting Physician Matteo An MD electronically signed on 2016-07-23 16:53:36.97 ECHO ADULT - STORE ECHOCARDIOGRAM ONLY (07/19/2016 11:14 AM) Component Value Range Patient Height (cm) 160 cm Patient Weight (kg) 72.1 kg BSA (meters^2) 1.8 m^2 Procedures (4771642U) RVDd 3.5 cm IVSd 1.2 cm LVIDd [...] Narrative Test methodology:PCR amplification; Xpert SA Test (P2i) CHOLESTEROL (07/09/2016 11:16 AM) Component Value Range [...] Specimen Blood CT ANGIO HEAD& NECK W/WO ([id number], [id number]) (07/04/2016 10:49 AM) Impressions Impression: 1. Postsurgical [...] to: PERSON CONTACTED:MIKE Suarez DATE: 07/04/2016 TIME CALLED:[phone] PHONE/PAGER:[phone] Narrative Procedure: CT ANGIO HEAD & NECK W/WO ([id number], [id number]) Indication: Draining from right carotid endarterectomy incision Exam: Axial CT angiogram of the neck and [place] after the uneventful administration of [...] Procedure Note Donavon, Incoming Imaging Results - [facility] Jul 04, 2016 1:57 PM SWITCHBOARD OPERATOR ASSISTANT Procedure: CT ANGIO HEAD & NECK W/WO ([id number], [id number]) Indication: Draining from right carotid endarterectomy incision Exam: Axial CT angiogram of the neck and [place] after the uneventful administration of [...] CONTACTED: MIKE Suarez DATE: 07/04/2016 TIME CALLED: [phone] PHONE/PAGER: [phone] IRL RADIOLOGY CREATININE, POINT OF CARE (07/04/2016 9:53 AM) Component Value Range IRL Radiology Creatinine, Point of Care 1.4(H) 0.5-1.0 mg/dL Calculated GFR 38(L) >60 mL/min/1.73 m2 Specimen Blood
--- NOTE | 2016-09-19 18:32 | ERNOTE ---
Chest Pain/Cardiac HPI Date of Service: 09/19/16 Chief Complaint: Chest Pain Time Seen by Provider: 09/19/16 16:49 Source: patient Exam Limitations: no limitations Immunizations: IMMUNIZATION HX Immunizations Up to Date Yes History of Influenza Vaccine No Hx Pneumococcal Vaccination No Allergies/Adverse Reactions: Allergies adhesive tape Allergy (Verified 08/18/16 09:13) amoxicillin Allergy (Verified 08/18/16 09:13) penicillin V Allergy (Verified 08/18/16 09:13) Home Medications: HOME MEDICATIONS ALPRAZolam [Xanax] 0.25 mg PO TID PRN 08/18/16 [Last Taken Unknown] Acetaminophen [Tylenol] 325 mg PO Q4H PRN 08/18/16 [Last Taken Unknown] Albuterol Sulfate 2 mg PO TID 08/18/16 [Last Taken Unknown] Albuterol Sulfate [Proair Respiclick] 90 mcg IH Q6H PRN 08/18/16 [Last Taken Unknown] Atorvastatin Calcium [Lipitor] 20 mg PO DAILY 08/18/16 [Last Taken Unknown] Digoxin [Lanoxin] 125 mcg PO DAILY 08/18/16 [Last Taken Unknown] HYDROcodone/ACETAMINOPHEN [[place] 5-325] 1 tab PO Q6H PRN 08/18/16 [Last Taken Unknown] Metoprolol Tartrate [Lopressor] 12.5 mg PO BID 08/18/16 [Last Taken Unknown] Sildenafil Citrate [Revatio] 5 mg PO TID 08/18/16 [Last Taken Unknown] Amiodarone HCl [Cordarone] 200 mg PO DAILY #30 tablet 08/21/16 [Last Taken Unknown] Furosemide [Lasix] 40 mg PO BID #60 tablet 08/21/16 [Last Taken Unknown] Docusate Sodium 100 mg PO BID 09/15/16 [Last Taken Unknown] Sennosides 8.6 mg PO BID PRN 09/15/16 [Last Taken Unknown] Potassium Chloride [Klor-Con] 10 meq PO DAILY #30 packet 09/16/16 [Last Taken Unknown] Fexofenadine HCl [Yanet Allergy] 180 mg PO DAILY 09/19/16 [Last Taken Unknown] Levothyroxine Sodium [Synthroid] 100 mcg PO DAILY@0700 09/19/16 [Last Taken Unknown] Pantoprazole Sodium [Protonix] 20 mg PO DAILY 09/19/16 [Last Taken Unknown] Warfarin Sodium [Coumadin] 2 mg PO DAILY 09/19/16 [Last Taken Unknown] Narrative: Patient presents to the ED for trouble breathing and chest pains. She relates she has been having left sided chest pains throughtout the day and SOB since last night. She has gradually declining health. No fever. She has had some cough and family is concerned about pneumonia. She has leg swelling but family relates this is not currently worse. She relates no pleuritic pain. Nothing clearly makes this better or worse. Timing: constant Severity/Quality: moderate Location: left chest Chest Pain Radiation: no radiation Activities at Onset: none Modifying Factors - Improves: Present: nothing Modifying Factors - Worsens: Present: nothing Associated Symptoms: Present: shortness of breath, palpitations, other - generalized weakness. Absent: diaphoresis, fever/chills Prior Treatment: Reports: recently seen Review of Systems - Review of Systems Constitutional: Absent: fever Respiratory: Present: shortness of breath, cough Cardiology: Present: chest pain Gastrointestinal/Abdominal: Absent: abdominal pain Genitourinary: Absent: dysuria All Other Systems: All systems neg except as marked - Patient's Past Medical History Patient History - Medical: Anemia, Anxiety, Fibromyalgia, Hypothyroidism, Osteoarthritis Patient History - Cardiac/Respiratory: Atrial Fibrillation, Arrhythmias, Cardiac Arrest, Cardiomyopathy, Coronary Heart Disease, CHF, COPD, Hypertension , Hyperlipidemia, Myocardial Infarction, Valvular Heart Disease, Other Patient History - Cancer: No Hx of Cancer Patient History - Surgical Procedures: Appendectomy, Coronary Bypass Surgery, Hysterectomy, Other, Hernia Repair Patient History - Other: None - Family History Mother Family History - Medical: Family History - Cardiac/Respiratory: Aneurysm, Cardiac Arrest, Myocardial Infarction Family History - Cancer: Other Father Family History - Medical: , No pertinent hx - Social History Living Situations: home Abuse History: No History of abuse Psych History: No pertinent hx Smoking Status: Former smoker Have you smoked in the past 12 months: No Alcohol Use: none Drug Use: none - Immunizations Immunizations Up to Date: Yes Hx Pneumococcal Vaccination: No History of Influenza Vaccine: No Physical Exam - Physical Exam General Appearance: Present: alert, no apparent distress, other - chronically ill appearing. Eye Exam: Normal inspection: bilateral, PERRL: bilateral Ears, Nose, Throat: Present: normal ENT inspection Neck: Present: normal inspection Respiratory: Present: no respiratory distress, other - faint wheezes. Rales in the bases Cardiovascular/Chest: Present: tachycardia, irregularly irregular Gastrointestinal/Abdominal: Present: normal bowel sounds, nontender, nondistended, soft Back Exam: Absent: CVA tenderness (R), CVA tenderness (L) Neurological Exam: Present: alert, other - generalized weakness, no acute focal motor or sensory deficits. Skin Exam: Absent: skin rash ED Progress - Vital Signs Patient's Vital Signs:: I have reviewed the patient's vital signs. Vital Signs: Vital Signs 09/19/16 09/19/16 09/19/16 16:39 17:23 17:54 Temperature 36.3 C L Pulse Rate 107 H 107 H 106 H Respiratory 18 20 Rate Blood Pressure 118/73 125/71 126/66 O2 Sat by Pulse 99 98 Oximetry 09/19/16 09/19/16 18:00 18:02 Temperature Pulse Rate 106 H 106 H Respiratory 16 16 Rate Blood Pressure 126/66 O2 Sat by Pulse 100 100 Oximetry - EKG EKG: atrial fibrillation EKG read: Reviewed by me EKG Comments: No old found for comparison. IVCD. No clear STEMI. Non-specific ST/T wave changes. - Progress/Reassessment Chief Complaint: Chest Pain Progress Note-Subjective: 09/19/16 18:30 Lasix given. D/W Dr Serrano who will admit. Troponin is trending down from prior. Clinically this is CHF. Departure - Departure Clinical Impression: SOB (shortness of breath), Chest pain, Congestive heart failure, Elevated troponin Disposition: [facility] Condition: Fair Referrals: Av Hodges MD [Primary Care Provider] -
--- NOTE | 2016-09-19 21:55 | HP ---
Chief Complaint - Chief Complaint Date of Service: 09/19/16 Time of Service: 21:32 Chief Complaint: Shortness of breath, cough and chest pain History of Present Illness: 66 years old female pt of Dr. Hodges adm to the hospital from ER with reports of cough, increased shortness of breath and non radiating chest pain. Associated s/s nausea, palpitation, dizziness and diaphoresis. She denies vomiting, diarrhea, headaches and stated s/s is getting better since adm. PMH significant for A-fib, CHF, COPD, anemia, Athritis, Carotid Stenosis, CAD, HTN, HLD, GERD, PVD. she is S/P extensive cardiac /open heart surgery history involving: Mitral Valve and Tricuspid valve repair, CABG which was done on . 09/04/16 RT carotid endarterectomy at [facility]. They state that she developed some complications from the surgery which affected her vocal cords, hence difficulty with swallowing. She ended up developing Oropharyngeal Dysphagia as a result and a Percutaneous Endoscopic Gastrostomy was placed on 09/13. She gets her feeding 150ml vital three times daily. Per family pt has not been tolerating the feeding very well, some days she have soft formed stool while others its diarrhea. 09/15/16 she was adm at [facility] for CHF exacerbation, since then the BLLE pitting edema has improved. In ER BNP 67036 which is higher than last adm BNP 22,780. EKG showed Afib and on Coumadin INR 3.45, will hold dose and monitor INR. Troponin 0.472 likely due to CHF exacerbation and trending down from previous adm upon discharge Troponin was 0.789. Supplemented oxygen in uses due to reports of shortness of breath and will gradually wean off. She is adm for acute on chronic CHF exacerbation and with be diurese with IV Lasix. Plan of care discussed with pt and family they verbalized understanding and agrees. - Patient's Past Medical History Patient History - Medical: Anemia, Anxiety, Fibromyalgia, Hypothyroidism, Osteoarthritis Patient History - Cardiac/Respiratory: Atrial Fibrillation - on coumadin, Arrhythmias, Cardiac Arrest, Cardiomyopathy, Coronary Heart Disease, CHF, COPD, Hypertension, Hyperlipidemia, Myocardial Infarction, Valvular Heart Disease, Other - dysphagia Patient History - Cancer: No Hx of Cancer Patient History - Surgical Procedures: Appendectomy, Coronary Bypass Surgery, Hysterectomy, Other - 09/04/16 RT carotid endarterectomy at [facility]. PEG tube, Hernia Repair Patient History - Other: None LMP (females 10-50): Menopausal - Family History Mother Family History - Medical: Family History - Cardiac/Respiratory: Aneurysm, Myocardial Infarction Family History - Cancer: No pertinent family hx Father Family History - Medical: Family History - Cardiac/Respiratory: Myocardial Infarction Family History - Cancer: Prostate - Social History Living Situations: spouse Abuse History: No History of abuse Psych History: Hx of Anxiety Smoking Status: Former smoker Have you smoked in the past 12 months: No - quit 1 yr ago Smoking Stop Date: 09/24/15 Alcohol Use: none Drug Use: none - Immunizations Immunizations Up to Date: Yes Hx Pneumococcal Vaccination: No History of Influenza Vaccine: No Review Of Systems (GEN) - Review of Systems Generalized/Overall Review: Present: No Symptoms Reported EENTM: Present: Other - dysphagia Respiratory: Present: Cough, Shortness of Breath, Orthopnea Cardiac: Present: Edema, Palpitations Abdominal: Present: Other - soft to loose stool PEG tube feeding Genitourinary: Present: No Symptoms Reported Musculoskeletal: Present: No Symptoms Reported Neurological: Present: No Symptoms Reported Skin: Present: No Symptoms Reported Endocrine: Present: No Symptoms Reported Immunizations: IMMUNIZATION HX Immunizations Up to Date Yes History of Influenza Vaccine No Hx Pneumococcal Vaccination No Allergies/Adverse Reactions: Allergies Allergy/AdvReac Type Severity Reaction Status Date / Time adhesive tape Allergy Verified 09/19/16 20:11 amoxicillin Allergy Verified 09/19/16 20:11 penicillin V Allergy Verified 09/19/16 20:11 Home Medications: HOME MEDICATIONS ALPRAZolam [Xanax] 0.25 mg PO TID PRN 08/18/16 [Last Taken Unknown] Acetaminophen [Tylenol] 325 mg PO Q4H PRN 08/18/16 [Last Taken Unknown] Albuterol Sulfate 2 mg PO TID 08/18/16 [Last Taken Unknown] Albuterol Sulfate [Proair Respiclick] 90 mcg IH Q6H PRN 08/18/16 [Last Taken Unknown] Atorvastatin Calcium [Lipitor] 20 mg PO DAILY 08/18/16 [Last Taken Unknown] Digoxin [Lanoxin] 62.5 mcg PO DAILY 08/18/16 [Last Taken Unknown] HYDROcodone/ACETAMINOPHEN [Blomkest 5-325] 1 tab PO Q6H PRN 08/18/16 [Last Taken Unknown] Metoprolol Tartrate [Lopressor] 12.5 mg PO BID 08/18/16 [Last Taken Unknown] Sildenafil Citrate [Revatio] 5 mg PO TID 08/18/16 [Last Taken Unknown] Amiodarone HCl [Cordarone] 200 mg PO DAILY #30 tablet 08/21/16 [Last Taken Unknown] Furosemide [Lasix] 40 mg PO BID #60 tablet 08/21/16 [Last Taken Unknown] Docusate Sodium 100 mg PO BID 09/15/16 [Last Taken Unknown] Sennosides 8.6 mg PO BID PRN 09/15/16 [Last Taken Unknown] Potassium Chloride [Klor-Con] 10 meq PO DAILY #30 packet 09/16/16 [Last Taken Unknown] Clopidogrel Bisulfate [Plavix] 75 mg PO DAILY 09/19/16 [Last Taken Unknown] Famotidine 20 mg PO BID 09/19/16 [Last Taken Unknown] Fexofenadine HCl [Yanet Allergy] 180 mg PO DAILY 09/19/16 [Last Taken Unknown] Furosemide [Lasix] 60 mg PO BID 09/19/16 [Last Taken Unknown] Levothyroxine Sodium [Synthroid] 125 mcg PO DAILY@0700 09/19/16 [Last Taken Unknown] Spironolactone [Aldactone] 25 mg PO DAILY 09/19/16 [Last Taken Unknown] Warfarin Sodium [Coumadin] 5 mg PO DAILY 09/19/16 [Last Taken Unknown] Exam - Exam Vital Signs: Vital Signs - Last Taken Temp 36.1 C L 09/19/16 19:49 Pulse 109 H 09/19/16 19:49 Resp 16 09/19/16 19:49 BP 123/76 09/19/16 19:49 Pulse Ox 100 09/19/16 19:49 Constitutional: Present: Alert, Oriented x3, Cooperative, Well developed, No distress, Looks Older than stated age ENT Exam: Present: moist mucous membranes Eye Exam: bilateral eye: PERRL Neck: Present: full range of motion, other - Right carotid endarterectomy Back Exam: Present: normal inspection Breasts: Present: Exam deferred Respiratory: Present: chest non-tender, normal breath sounds, no respiratory distress Cardiovascular/Chest: Present: no JVD, tachycardia, irregularly irregular, edema - BLLE Peripheral Pulses: dorsalis-pedis (R): 1+, dorsalis-pedis (L): 1+ Abdomen: Present: Normal bowel sounds, soft, nontender, nondistended, no rebound tenderness, other - PEG tube /Rectal: Present: Exam deferred Extremity: Present: normal range of motion, no calf tenderness, lower extremity edema, slow capillary refill, swelling Skin Exam: Present: normal color, warm/dry Lymphatic: Present: no adenopathy Neurologic: Present: oriented x 3 Appearance: Present: appropriate appearance, appropriate insight Eye contact: Present: cooperative, good eye contact Thoughts: Present: normal thought pattern Diagnostic Studies: Laboratory Results WBC 6.4 K/mm3 (4.0-10.5) 09/19/16 17:09 RBC 3.66 M/mm3 (4.2-5.4) L 09/19/16 17:09 Hgb 9.9 gm/dL (12.5-16.0) L 09/19/16 17:09 Hct 33.4 % (37.0-47.0) L 09/19/16 17:09 MCV 91.3 fl (78-100) 09/19/16 17:09 MCH 27.0 pg (27-31) 09/19/16 17:09 MCHC 29.6 g/dl (32-36) L 09/19/16 17:09 RDW 20.7 % (11.5-14.0) H 09/19/16 17:09 Plt Count 229 K/mm3 (150-450) 09/19/16 17:09 MPV 9.6 fl (6.0-9.5) H 09/19/16 17:09 Neutrophils % (Manual) 64 % (42-75) 09/19/16 17:09 Band Neuts % (Manual) 8 % (0-2.0) H 09/19/16 17:09 Lymphocytes % (Manual) 12 % (20-51) L 09/19/16 17:09 Monocytes % (Manual) 10 % (0-9) H 09/19/16 17:09 Neutrophils # (Manual) 4.1 K/mm3 (1.3-6.0) 09/19/16 17:09 Lymphocytes # (Manual) 0.8 k/mm3 (1.5-3.5) L 09/19/16 17:09 Monocytes # (Manual) 0.6 k/mm3 (0.0-1.0) 09/19/16 17:09 Atypic/Reactive Lymphs 6 % (0-2) H 09/19/16 17:09 Platelet Estimate Normal (NORMAL) 09/19/16 17:09 RBC Morphology Normal (NORMAL) 09/19/16 17:09 PT 35.9 Seconds (9.4-11.4) H 09/19/16 17:09 INR (Anticoag Therapy) 3.45 INR (0.90-1.10) H 09/19/16 17:09 PTT (Shreyas) 33.6 Seconds (24-32) H 09/19/16 17:09 Sodium 135 mmol/L (132-142) 09/19/16 17:09 Plasma Sodium 136 mmol/L (130-142) 09/19/16 17:09 Potassium 4.6 mmol/L (3.4-4.6) 09/19/16 17:09 Chloride 98 mmol/L (97-106) 09/19/16 17:09 Carbon Dioxide 28.0 mmol/L (24-32.6) 09/19/16 17:09 Anion Gap 13.6 mmol/L (6.8-13.8) 09/19/16 17:09 BUN 31 mg/dL (3-23) H 09/19/16 17:09 Creatinine 1.33 mg/dL (0.4-1.4) 09/19/16 17:09 Est GFR (Non-Af Amer) 43 mL/min (60-130) L 09/19/16 17:09 BUN/Creatinine Ratio 23.3 (9.0-21.6) H 09/19/16 17:09 Random Glucose 146 mg/dL (70-110) H 09/19/16 17:09 Calcium 9.5 mg/dL (7.9-10.9) 09/19/16 17:09 Calcium Adj for Albumin 9.6 mg/dL (8.4-10.2) 09/19/16 17:09 Total Bilirubin 1.3 mg/dL (0.0-1.1) H 09/19/16 17:09 AST 27 U/L (0-48) 09/19/16 17:09 ALT 26 U/L (19-67) 09/19/16 17:09 Alkaline Phosphatase 128 U/L (50-170) 09/19/16 17:09 Troponin I 0.472 ng/ml (0.00-0.10) H* 09/19/16 17:09 B-Natriuretic Peptide 12835 pg/mL (5-205) H 09/19/16 17:09 Total Protein 8.2 gm/dL (6.2-8.2) 09/19/16 17:09 Albumin 3.5 gm/dl (3.4-5.0) 09/19/16 17:09 Digoxin 1.1 ng/mL (0.5-2.0) D 09/19/16 17:09 Assessment/Plan - Narrative Narrative: Acute on chronic CHF exacerbation Per family pt have increased shortness of breath and orthopnea BLLE pitting edema has improved since last adm Monitor Strict I/O and Weight daily Lasix 20mg IV x1 given in ER, continue with IV Lasix for diuresis 08/20/16 2D Echo : LV systolic function mod-sev reduced. The transmitral spectral Doppler flow pattern suggestive of restrictive physiology. There is is mod-sev global hypokinesis of the left ventricle. Supplemented oxygen and wean off soon as prudent. S/P Right Carotid Endarterectomy Per family pt have appt for speech therapy Continue with home tube feeding dose / frequency BMI 28.4: Material Man to see pt, per family pt getting less than the recommended feeding while at home. oral suction for frequent productive cough Oral care Chronic A-fib On adm INR 3.45 will hold Coumadin dose and monitor INR Monitor on telemetry Pharmacy to dose Consider Lovenox if INR < 2 COPD- no exacerbation Continue with inhalers schedule and PRN Supplemented oxygen and wean soon as prudent Code status: Full VTE ppx: Therapeutic Coumadin GI ppx Protonix Anticipate discharge home 1-2 days and follow up with PCP Time 45 minutes and Previous records reviewed - Assessment/Plan (1) Acute on chronic diastolic CHF (congestive heart failure) Problem: Acute (2) Chest pain Problem: Resolved Qualifiers: Chest pain type: chest pain on breathing Qualified Code(s): R07.1 - Chest pain on breathing (3) Elevated troponin Problem: Chronic (4) S/P carotid endarterectomy Problem: Chronic (5) A-fib Problem: Chronic (6) COPD (chronic obstructive pulmonary disease) Problem: Chronic Qualifiers:
[2016-09-19] MEDS ORDERED: ACETAMINOPHEN 325 MG TABLET PO PRN (22:08)
[2016-09-19] MEDS ORDERED: SENNOSIDES 8.6 MG TABLET PO PRN (22:08)
[2016-09-19] MEDS ORDERED: ALPRAZolam 0.25 MG TABLET PO PRN (22:08)
[2016-09-19] MEDS ORDERED: HYDROcodone/ACETAMINOPHEN 1 EACH TABLET PO PRN (22:08)
[2016-09-19] MEDS ORDERED: METOPROLOL TARTRATE 25 MG TABLET PO SCH (22:15)
[2016-09-19] MEDS ORDERED: ALBUTEROL SULFATE 60 PUFF INHALER IH PRN (22:27)
[2016-09-19] MEDS: FAMOTIDINE 20 MG TABLET PO SCH (22:47)
[2016-09-20] MEDS ORDERED: ONDANSETRON HCL/PF 2 MG/ML VIAL IV PRN (00:06)
[2016-09-20 06:15] LABS: Prothrombin Time (Patient) 48.6 Seconds (9.4-11.4)
[2016-09-20 06:28] LABS: INR 4.67 INR (0.90-1.10)
[2016-09-20] MEDS ORDERED: HYDROcodone/ACETAMINOPHEN 1 EACH TABLET PO PRN (06:28)
[2016-09-20 06:30] LABS: Anion Gap 17.8 mmol/L (6.8-13.8); BUN/Creatinine Ratio 23.3 (9.0-21.6); Calcium * 9.6 mg/dL (7.9-10.9); Carbon Dioxide 25.1 mmol/L (24-32.6); Estimated Creat Clear 32.2; Potassium 4.9 mmol/L (3.4-4.6)
--- NOTE | 2016-09-20 07:40 | PN ---
Subjective - Date and Time Seen Date: 09/20/16 Time: 07:32 Subjective Narrative: Patient still very SOB. Talks in short sentences as it makes her tired. Put out only 500 ml. Objective - Review of Systems Generalized/Overall Review: Reports: Weakness. Denies: Chills, Fever EENTM: Reports: No Symptoms Reported Respiratory: Reports: Cough, Shortness of Breath, Orthopnea Cardiac: Reports: Chest Pain, Edema. Denies: Palpitations Abdominal: Denies: Nausea, Vomiting Genitourinary Symptoms: Denies: Urgency, Frequency Musculoskeletal Complaints: Reports: Joint Pain - Vitals Vitals: Last Vital Signs Temp 37.0 C 09/20/16 07:00 Pulse 103 H 09/20/16 07:00 Resp 18 09/20/16 07:00 BP 132/71 09/20/16 07:00 Pulse Ox 95 09/20/16 07:00 - Abnormal Lab Findings Abnormal Lab Findings: Abnormal Lab Results 09/19/16 09/20/16 09/20/16 Range/Units 23:03 05:50 05:50 PT 48.6 H (9.4-11.4) Seconds INR (Anticoag Therapy) 4.67 H* (0.90-1.10) INR Potassium 4.9 H (3.4-4.6) mmol/L Anion Gap 17.8 H (6.8-13.8) mmol/L BUN 34 H (3-23) mg/dL Creatinine 1.46 H (0.4-1.4) mg/dL Est GFR (Non-Af Amer) 38 L (60-130) mL/min BUN/Creatinine Ratio 23.3 H (9.0-21.6) Random Glucose 139 H (70-110) mg/dL Troponin I 0.499 H* (0.00-0.10) ng/ml B-Natriuretic Peptide 09199 H (5-205) pg/mL - Exam Constitutional: Present: Alert, Oriented x3, Cooperative, Mild distress ENT Exam: Present: hearing grossly normal Neck: Present: supple Breasts: Present: Exam deferred Respiratory: Present: decreased breath sounds, rales, No wheezing Cardiovascular/Chest: Present: JVD, systolic murmur, irregularly irregular Abdomen: Present: Normal bowel sounds, soft, nontender, nondistended Extremity: Present: no calf tenderness, lower extremity edema Assessment/Plan - Problems/Diagnosis (1) Acute on chronic diastolic CHF (congestive heart failure) Problem: Acute Narrative: BNP 27, 750. Will increase her IV Lasix. EF-25-30%%. K is 4.9. Stopped KCL pill. If her K is still going up tomorrow, will stop her spironolactone. (2) Elevated troponin Problem: Chronic Narrative: stable . likely due to increased demand ischemia from CHF (3) Oropharyngeal dysphagia Problem: Acute Narrative: on PEG Feeding (4) A-fib Problem: Chronic Narrative: will increase metoprolol and continue with digoxin, Amiodarone . INR is suprathreapeutic . Coumadin on hold. (5) COPD (chronic obstructive pulmonary disease) Problem: Chronic Qualifiers: COPD type: emphysema Emphysema type: unspecified Qualified Code(s): J43.9 - Emphysema, unspecified (6) History of tricuspid valve repair Problem: Chronic (7) Hx of mitral valve replacement with tissue graft Problem: Chronic (8) Hyperlipidemia Problem: Chronic Qualifiers: Hyperlipidemia type: unspecified Qualified Code(s): E78.5 - Hyperlipidemia , unspecified (9) Hypothyroidism Problem: Chronic Qualifiers: Hypothyroidism type: acquired Qualified Code(s): E03.9 - Hypothyroidism, unspecified (10) PVD (peripheral vascular disease) Problem: Chronic (11) Pulmonary hypertension Problem: Chronic (12) S/P carotid endarterectomy Problem: Chronic Narrative: s/p revision
[2016-09-20] MEDS: LEVOTHYROXINE SODIUM 125 MCG TABLET PO SCH (07:50)
[2016-09-20] MEDS ORDERED: POTASSIUM CHLORIDE 10 MEQ TABLET.SA PO SCH (09:00)
[2016-09-20] MEDS ORDERED: ALBUTEROL SULFATE 2 MG PO SCH (09:00)
[2016-09-20] MEDS ORDERED: ATORVASTATIN CALCIUM 10 MG TABLET PO SCH (09:00)
[2016-09-20] MEDS ORDERED: FUROSEMIDE 10 MG/ML VIAL IV SCH ×2 (09:00)
[2016-09-20] MEDS: SILDENAFIL CITRATE 20 MG TABLET PO SCH ×3 (09:01→18:09)
[2016-09-20] MEDS: DIGOXIN 0.125 MG TABLET PO SCH (09:01)
[2016-09-20] MEDS: CLOPIDOGREL BISULFATE 75 MG TABLET PO SCH (09:02)
[2016-09-20] MEDS: LORATADINE 10 MG TABLET PO SCH (09:02)
[2016-09-20] MEDS: METOPROLOL TARTRATE 25 MG TABLET PO SCH ×2 (09:02→18:09)
[2016-09-20] MEDS: AMIODARONE HCL 200 MG TABLET PO SCH (09:02)
[2016-09-20] MEDS: SPIRONOLACTONE 25 MG TABLET PO SCH (09:02)
[2016-09-20] MEDS: FUROSEMIDE 40 MG, FUROSEMIDE 20 MG IV SCH ×4 (09:03→20:16)
[2016-09-20] MEDS: METOCLOPRAMIDE HCL 10 MG TABLET PO SCH ×2 (14:04→20:11)
[2016-09-20] MEDS: ALBUTEROL SULFATE 2 MG PO SCH ×2 (14:04→18:08)
[2016-09-20] MEDS: FAMOTIDINE 20 MG TABLET PO SCH (20:11)
[2016-09-20] MEDS: ROSUVASTATIN CALCIUM 10 MG TABLET PO SCH (20:11)
[2016-09-21] MEDS: METOCLOPRAMIDE HCL 10 MG TABLET PO SCH ×5 (02:40→20:11)
[2016-09-21 05:09] LABS: Hematocrit 35.7 % (37.0-47.0); Hemoglobin 10.3 gm/dL (12.5-16.0); Mean Cell Volume 93.5 fl (78-100); Mean Corpuscular Hgb Conc 28.9 g/dl (32-36); Mean Platelet Volume 10.4 fl (6.0-9.5); Platelet Count 247 K/mm3 (150-450); Red Blood Count 3.82 M/mm3 (4.2-5.4); Red Cell Distribution Width 20.5 % (11.5-14.0); White Blood Count 6.8 K/mm3 (4.0-10.5)
[2016-09-21 05:14] LABS: Total Cells Counted 100
[2016-09-21 05:17] LABS: Anion Gap 17.6 mmol/L (6.8-13.8); Atypical (Reactive) Lymph 4 % (0-2); BUN/Creatinine Ratio 26.5 (9.0-21.6); Band 3 % (0-2.0); Basophil 1 % (0-1); Calcium * 9.4 mg/dL (7.9-10.9); Carbon Dioxide 25.2 mmol/L (24-32.6); Immature Granulocyte 3 (0-1); Lymphocyte 21 % (20-51); Monocyte 2 % (0-9); Neutrophil 66 % (42-75); Neutrophil # 4.5 K/mm3 (1.3-6.0); Potassium 4.8 mmol/L (3.4-4.6)
[2016-09-21 05:18] LABS: Dohle Bodies 1+; Hypochromia Trace; Macrocytosis 2+; Platelet Estimate Normal (NORMAL); Polychromasia Trace
[2016-09-21] MEDS: CLOPIDOGREL BISULFATE 75 MG TABLET PO SCH (08:07)
[2016-09-21] MEDS: AMIODARONE HCL 200 MG TABLET PO SCH (08:07)
[2016-09-21] MEDS: LORATADINE 10 MG TABLET PO SCH (08:07)
[2016-09-21] MEDS: LEVOTHYROXINE SODIUM 125 MCG TABLET PO SCH (08:07)
[2016-09-21] MEDS: METOPROLOL TARTRATE 25 MG TABLET PO SCH ×2 (08:07→16:52)
[2016-09-21] MEDS: DIGOXIN 0.125 MG TABLET PO SCH (08:08)
[2016-09-21] MEDS: SILDENAFIL CITRATE 20 MG TABLET PO SCH ×3 (08:08→16:52)
[2016-09-21] MEDS: FUROSEMIDE 40 MG, FUROSEMIDE 20 MG IV SCH ×4 (08:08→20:14)
[2016-09-21] MEDS: SPIRONOLACTONE 25 MG TABLET PO SCH (08:08)
[2016-09-21] MEDS: ALBUTEROL SULFATE 2 MG PO SCH ×3 (08:08→16:52)
[2016-09-21 10:11] LABS: Prothrombin Time (Patient) 44.2 Seconds (9.4-11.4)
[2016-09-21 10:54] LABS: INR 4.25 INR (0.90-1.10)
[2016-09-21] MEDS ORDERED: ALBUTEROL SULFATE/IPRATROPIUM 3 ML NEBU IH ONE (11:47)
--- NOTE | 2016-09-21 11:50 | PN ---
Subjective - Date and Time Seen Date: 09/21/16 Time: 11:49 Subjective Narrative: aMnuela reports being very tired. Did not sleep last night due to frequent diarrhea. She reports she cannot due her tube feeds any more today. She reports she gets too bloated and has horrible loose stools. Reglan was started yesterday but she has not noticed any improvement yet. She feels her breathing is better. She is on room air. Objective - Vitals Vitals: Last Vital Signs Temp 36.8 C 09/21/16 07:42 Pulse 104 H 09/21/16 08:08 Resp 22 H 09/21/16 07:42 BP 123/74 09/21/16 08:08 Pulse Ox 95 09/21/16 07:42 - Abnormal Lab Findings Abnormal Lab Findings: Abnormal Lab Results 09/21/16 09/21/16 09/21/16 Range/Units 05:07 05:07 09:50 RBC 3.82 L (4.2-5.4) M/mm3 Hgb 10.3 L (12.5-16.0) gm/dL Hct 35.7 L (37.0-47.0) % MCHC 28.9 L (32-36) g/dl RDW 20.5 H (11.5-14.0) % MPV 10.4 H (6.0-9.5) fl Band Neuts % (Manual) 3 H (0-2.0) % Immature Granulocytes 3 H (0-1) Lymphocytes # (Manual) 1.4 L (1.5-3.5) k/mm3 Atypic/Reactive Lymphs 4 H (0-2) % PT 44.2 H (9.4-11.4) Seconds INR (Anticoag Therapy) 4.25 H* (0.90-1.10) INR Potassium 4.8 H (3.4-4.6) mmol/L Anion Gap 17.6 H (6.8-13.8) mmol/L BUN 43 H (3-23) mg/dL Creatinine 1.62 H (0.4-1.4) mg/dL Est GFR (Non-Af Amer) 34 L (60-130) mL/min BUN/Creatinine Ratio 26.5 H (9.0-21.6) Random Glucose 134 H (70-110) mg/dL - Exam Constitutional: Present: Alert, Oriented x3, Cooperative ENT Exam: Present: hearing grossly normal Respiratory: Present: wheezing - diffuse Cardiovascular/Chest: Present: regular rate, rhythm, systolic murmur - 2+ Assessment/Plan - Problems/Diagnosis (1) Diarrhea Problem: Acute (2) Acute on chronic diastolic CHF (congestive heart failure) Problem: Acute Narrative: Improving, on room air. Will change lasix back to home dosing. (3) Oropharyngeal dysphagia Problem: Acute Narrative: Holding tube feeds as she is not tolerating. Will continue reglan and start cholestyramine to see if this will help prevent diarrhea. If we can improve GI motility and diarrhea she would be able to tolerate feeds. She is not meeting calorie intake goal and is failing to thrive. (4) COPD (chronic obstructive pulmonary disease) Problem: Chronic Qualifiers: COPD type: emphysema Emphysema type: unspecified Qualified Code(s): J43.9 - Emphysema, unspecified Narrative: On room air but noticeably wheezing, will give duoneb treatment. (5) Failure to thrive in adult Problem: Acute
[2016-09-21] MEDS: CHOLESTYRAMINE/SUCROSE 4 GM PACKET PO SCH ×3 (14:07→20:11)
[2016-09-21] MEDS: ALBUTEROL SULFATE 2.5 MG/3 ML VIAL.NEB IH PRN (17:47)
[2016-09-21] MEDS ORDERED: NITROGLYCERIN 0.4 MG/TAB BTL SL PRN (18:02)
[2016-09-21] MEDS: FAMOTIDINE 20 MG TABLET PO SCH (20:11)
[2016-09-21] MEDS: ROSUVASTATIN CALCIUM 10 MG TABLET PO SCH (20:11)
[2016-09-22] MEDS: ALBUTEROL SULFATE 2.5 MG/3 ML VIAL.NEB IH PRN ×4 (00:12→18:05)
[2016-09-22 01:21] LABS: Prothrombin Time (Patient) 41.5 Seconds (9.4-11.4)
[2016-09-22 01:29] LABS: INR 3.99 INR (0.90-1.10)
[2016-09-22] MEDS: METOCLOPRAMIDE HCL 10 MG TABLET PO SCH ×4 (01:35→18:44)
[2016-09-22] MEDS: ALBUTEROL SULFATE 2 MG PO SCH ×3 (09:52→17:42)
[2016-09-22] MEDS: AMIODARONE HCL 200 MG TABLET PO SCH (09:53)
[2016-09-22] MEDS: DIGOXIN 0.125 MG TABLET PO SCH (09:53)
[2016-09-22] MEDS: SPIRONOLACTONE 25 MG TABLET PO SCH (09:53)
[2016-09-22] MEDS: LORATADINE 10 MG TABLET PO SCH (09:53)
[2016-09-22] MEDS: METOPROLOL TARTRATE 25 MG TABLET PO SCH ×2 (09:54→17:42)
[2016-09-22] MEDS: CLOPIDOGREL BISULFATE 75 MG TABLET PO SCH (09:54)
[2016-09-22] MEDS: LEVOTHYROXINE SODIUM 125 MCG TABLET PO SCH (09:54)
[2016-09-22] MEDS: CHOLESTYRAMINE/SUCROSE 4 GM PACKET PO SCH ×4 (09:54→20:44)
[2016-09-22] MEDS: SILDENAFIL CITRATE 20 MG TABLET PO SCH ×3 (09:54→17:43)
[2016-09-22] MEDS: FUROSEMIDE 40 MG, FUROSEMIDE 20 MG IV SCH ×6 (10:26→23:45)
[2016-09-22 10:37] LABS: Hematocrit 33.2 % (37.0-47.0); Hemoglobin 9.7 gm/dL (12.5-16.0); Mean Cell Volume 91.7 fl (78-100); Mean Corpuscular Hemoglobin 26.8 pg (27-31); Mean Corpuscular Hgb Conc 29.2 g/dl (32-36); Mean Platelet Volume 10.9 fl (6.0-9.5); Platelet Count 305 K/mm3 (150-450); Red Blood Count 3.62 M/mm3 (4.2-5.4); Red Cell Distribution Width 20.5 % (11.5-14.0); White Blood Count 5.7 K/mm3 (4.0-10.5)
[2016-09-22 10:43] LABS: Total Cells Counted 100
[2016-09-22 10:48] LABS: Albumin * 3.6 gm/dl (3.4-5.0); Anion Gap 19.4 mmol/L (6.8-13.8); BUN/Creatinine Ratio 30.4 (9.0-21.6); Bilirubin, Total 2.6 mg/dL (0.0-1.1); Ca. Corrected For Albumin 9.3 mg/dL (8.4-10.2); Calcium * 9.3 mg/dL (7.9-10.9); Carbon Dioxide 25.2 mmol/L (24-32.6); Potassium 5.6 mmol/L (3.4-4.6); Total Protein 8.3 gm/dL (6.2-8.2)
[2016-09-22 10:57] LABS: Atypical (Reactive) Lymph 6 % (0-2); Band 3 % (0-2.0); Lymphocyte 18 % (20-51); Monocyte 3 % (0-9); Neutrophil 70 % (42-75); Platelet Estimate Normal (NORMAL)
[2016-09-22 10:58] LABS: Anisocytosis 2+
[2016-09-22 11:03] LABS: Polychromasia Trace
[2016-09-22] MEDS ORDERED: SODIUM POLYSTYRENE SULFON/SORB 15 G/60 ML BTL PO ONE (11:35)
[2016-09-22] MEDS: FAMOTIDINE 20 MG TABLET PO SCH (20:44)
[2016-09-22] MEDS: ROSUVASTATIN CALCIUM 10 MG TABLET PO SCH (20:44)
--- NOTE | 2016-09-22 23:57 | PN ---
Subjective - Date and Time Seen Date: 09/22/16 Time: 11:30 Subjective Narrative: Continues to feel short of breath. Is ready to try feedings, but would like to try 125ml as he was doing at home. Denies fever, chills. Wants oxygen at times for dysnpnea, however oxygen has remained >90%. Objective - Vitals Vitals: Last Vital Signs Temp 37.1 C 09/22/16 19:18 Pulse 104 H 09/22/16 23:45 Resp 20 09/22/16 19:18 BP 116/75 09/22/16 23:45 Pulse Ox 94 09/22/16 19:18 - Abnormal Lab Findings Abnormal Lab Findings: Abnormal Lab Results 09/22/16 09/22/16 09/22/16 Range/Units 00:50 00:50 10:23 RBC 3.62 L (4.2-5.4) M/mm3 Hgb 9.7 L (12.5-16.0) gm/dL Hct 33.2 L (37.0-47.0) % MCH 26.8 L (27-31) pg MCHC 29.2 L (32-36) g/dl RDW 20.5 H (11.5-14.0) % MPV 10.9 H (6.0-9.5) fl Band Neuts % (Manual) 3 H (0-2.0) % Lymphocytes % (Manual) 18 L (20-51) % Lymphocytes # (Manual) 1.0 L (1.5-3.5) k/mm3 Atypic/Reactive Lymphs 6 H (0-2) % PT 41.5 H (9.4-11.4) Seconds INR (Anticoag Therapy) 3.99 H (0.90-1.10) INR Potassium (3.4-4.6) mmol/L Chloride (97-106) mmol/L Anion Gap (6.8-13.8) mmol/L BUN (3-23) mg/dL Creatinine (0.4-1.4) mg/dL Est GFR (Non-Af Amer) (60-130) mL/min BUN/Creatinine Ratio (9.0-21.6) Random Glucose (70-110) mg/dL Total Bilirubin (0.0-1.1) mg/dL AST (0-48) U/L ALT (19-67) U/L Alkaline Phosphatase (50-170) U/L Troponin I 0.516 H* (0.00-0.10) ng/ml Total Protein (6.2-8.2) gm/dL 09/22/ Range/Units 10:23 RBC (4.2-5.4) M/mm3 Hgb (12.5-16.0) gm/dL Hct (37.0-47.0) % MCH (27-31) pg MCHC (32-36) g/dl RDW (11.5-14.0) % MPV (6.0-9.5) fl Band Neuts % (Manual) (0-2.0) % Lymphocytes % (Manual) (20-51) % Lymphocytes # (Manual) (1.5-3.5) k/mm3 Atypic/Reactive Lymphs (0-2) % PT (9.4-11.4) Seconds INR (Anticoag Therapy) (0.90-1.10) INR Potassium 5.6 H (3.4-4.6) mmol/L Chloride 96 L (97-106) mmol/L Anion Gap 19.4 H (6.8-13.8) mmol/L BUN 51 H (3-23) mg/dL Creatinine 1.68 H (0.4-1.4) mg/dL Est GFR (Non-Af Amer) 33 L (60-130) mL/min BUN/Creatinine Ratio 30.4 H (9.0-21.6) Random Glucose 123 H (70-110) mg/dL Total Bilirubin 2.6 H (0.0-1.1) mg/dL AST 288 H (0-48) U/L ALT 119 H (19-67) U/L Alkaline Phosphatase 231 H (50-170) U/L Troponin I (0.00-0.10) ng/ml Total Protein 8.3 H (6.2-8.2) gm/dL - Exam Constitutional: Present: Alert, Oriented x3, Cooperative ENT Exam: Present: hearing grossly normal Respiratory: Present: crackles - bilateral base, wheezing - diffuse Cardiovascular/Chest: Present: regular rate, rhythm, no murmur Abdomen: Present: Normal bowel sounds, soft Assessment/Plan - Problems/Diagnosis (1) Acute on chronic diastolic CHF (congestive heart failure) Problem: Acute Narrative: Remains on room air, but significantly dyspneic at times. Increased lasix to TID. Discontinued spironolactone due to hyperkalemia. (2) Diarrhea Problem: Acute Narrative: Secondary to tube feeds. Added cholestyramine to help. If controlled may consider increasing up tube feeding. At this time she is only willing to try 125ml three times a day, which is not adequate for nutrition. (3) Oropharyngeal dysphagia Problem: Acute (4) COPD (chronic obstructive pulmonary disease) Problem: Chronic Qualifiers: COPD type: emphysema Emphysema type: unspecified Qualified Code(s): J43.9 - Emphysema, unspecified (5) Failure to thrive in adult Problem: Acute (6) Hyperkalemia Problem: Acute Narrative: Discontinued spironolactone. Given Kayexalate due to potassium 5.6. Increased lasix to TID.
[2016-09-23] MEDS: ALBUTEROL SULFATE 2.5 MG/3 ML VIAL.NEB IH PRN ×3 (00:29→13:24)
[2016-09-23] MEDS: ACETYLCYSTEINE 100 MG/ML VIAL IH PRN ×3 (00:30→13:27)
[2016-09-23] MEDS: METOCLOPRAMIDE HCL 10 MG TABLET PO SCH ×3 (01:10→14:41)
[2016-09-23 06:20] LABS: Albumin * 3.7 gm/dl (3.4-5.0); Anion Gap 20.8 mmol/L (6.8-13.8); BUN/Creatinine Ratio 28.6 (9.0-21.6); Bilirubin, Total 2.2 mg/dL (0.0-1.1); Calcium * 9.1 mg/dL (7.9-10.9); Carbon Dioxide 23.7 mmol/L (24-32.6); Potassium 4.5 mmol/L (3.4-4.6); Total Protein 8.3 gm/dL (6.2-8.2)
[2016-09-23 06:28] LABS: Prothrombin Time (Patient) 51.2 Seconds (9.4-11.4)
[2016-09-23 07:04] LABS: INR 4.92 INR (0.90-1.10)
[2016-09-23] MEDS: LEVOTHYROXINE SODIUM 125 MCG TABLET PO SCH (07:47)
[2016-09-23] MEDS: FUROSEMIDE 40 MG, FUROSEMIDE 20 MG IV SCH ×4 (07:47→14:43)
--- NOTE | 2016-09-23 07:49 | PN ---
Progess Note - Interim Narrative: 09/23/16 07:48 Patient says she is feeling a little bit better. Ambulated past the nurses station last night but had to be WC after that. Not on O2. 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 09/23/16 09:13
[2016-09-23] MEDS: ALBUTEROL SULFATE 2 MG PO SCH ×3 (10:06→17:47)
[2016-09-23] MEDS: CLOPIDOGREL BISULFATE 75 MG TABLET PO SCH (10:07)
[2016-09-23] MEDS: METOPROLOL TARTRATE 25 MG TABLET PO SCH ×2 (10:07→17:47)
[2016-09-23] MEDS: AMIODARONE HCL 200 MG TABLET PO SCH (10:07)
[2016-09-23] MEDS: LORATADINE 10 MG TABLET PO SCH (10:07)
[2016-09-23] MEDS: DIGOXIN 0.125 MG TABLET PO SCH (10:07)
[2016-09-23] MEDS: CHOLESTYRAMINE/SUCROSE 4 GM PACKET PO SCH ×3 (10:08→17:48)
[2016-09-23] MEDS: SILDENAFIL CITRATE 20 MG TABLET PO SCH ×3 (10:08→17:48)
--- NOTE | 2016-09-23 12:06 | DS ---
Transfer Discharge Summary - Diagnosis(s)/Problems (1) Acute on chronic diastolic CHF (congestive heart failure) Narrative: discussed with Dr. Mae, her validation technician. He recommends her to be transferred to [facility] for a biventricular [employer]ERSON-ICD. Case discussed with Dr. Mena , triage doctor in [facility]-he is accepting the patient. Problem: Acute (2) Elevated troponin Narrative: likely due to CHF with increased demand ischemia. Problem: Chronic (3) Oropharyngeal dysphagia Problem: Acute (4) A-fib Problem: Chronic (5) COPD (chronic obstructive pulmonary disease) Problem: Chronic (6) History of tricuspid valve repair Problem: Chronic (7) Hx of mitral valve replacement with tissue graft Problem: Chronic (8) Hyperlipidemia Problem: Chronic (9) Hypothyroidism Problem: Chronic (10) PVD (peripheral vascular disease) Problem: Chronic (11) Pulmonary hypertension Problem: Chronic (12) S/P carotid endarterectomy Problem: Chronic (13) Elevated LFTs Narrative: likely due to passive congestion Problem: Acute - Course Description of Stay: Manuela Camarena, 66 years old female , who was adm to the hospital from ER on 2016 with reports of cough, increased shortness of breath and non radiating chest pain. Associated s/s nausea, palpitation, dizziness and diaphoresis. She denied vomiting, diarrhea, headaches . PMH significant for A-fib, CHF, COPD, anemia, Athritis, Carotid Stenosis, CAD, HTN, HLD, GERD, PVD. She is S/P extensive cardiac /open heart surgery history involving: Mitral Valve replacement and Tricuspid valve repair, CABG which was done on 07/22/16. RT carotid endarterectomy at [facility]. They stated that she developed some complications from the surgery which affected her vocal cords, hence difficulty with swallowing. She ended up developing Oropharyngeal Dysphagia as a result and a Percutaneous Endoscopic Gastrostomy was placed on 09/13. She gets her feeding 150ml vital three times daily. Per family pt have not been tolerating the feeding very well, some days she have soft formed stool while others its diarrhea. On 08/19/2016 she was admitted for CHF exacerbation. On 09/15/16 she was adm at [facility] again for CHF exacerbation, since then the BLLE pitting edema has improved. In ER BNP 55695 which is higher than last adm BNP 22,780. EKG showed Afib . Her INR was supratherapeutic ( 3.45 ), and her coumadin was put on hold. Troponin 0.472 likely due to increased demand ischemia from her CHF exacerbation . It is trending down from previous adm upon discharge Troponin was 0.789. Supplemented oxygen in uses due to reports of shortness of breath and will gradually wean off. She was adm for acute on chronic CHF exacerbation, combined diastolic and systolic, EF 25-30%. She was diuresed with IV Lasix. Her spironolactone was stopped due to hyperkalemia. Her Cr has crept up likley due to her diuretics and worsening of her CHF. Her LFTS have crept up likely due to passive congestion. Her US of the liver and GB done today showed GB stones / adenomyomatosis but no cholecystitis, hepatic steatosis, nodular appearance rule out liver cirrhosis. [place] [address]. I discussed with Dr. 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 Her case was discussed with Dr. Mena , triage doctor in [facility] and they have accepted the patient. Procedures Performed: none - Results and Findings Results and Findings: Laboratory Results - last 24 hr 09/22/16 09/23/16 09/23/16 20:05 06:00 06:00 PT 51.2 H INR (Anticoag Therapy) 4.92 H* Sodium 138 Plasma Sodium 139 Potassium 4.6 4.5 Chloride 98 Carbon Dioxide 23.7 L Anion Gap 20.8 H BUN 54 H Creatinine 1.89 H Est GFR (Non-Af Amer) 28 L BUN/Creatinine Ratio 28.6 H Random Glucose 140 H Calcium 9.1 Calcium Adj for Albumin 9.0 Total Bilirubin 2.2 H AST 215 H ALT 130 H Alkaline Phosphatase 220 H B-Natriuretic Peptide Total Protein 8.3 H Albumin 3.7 09/23/16 06:00 PT INR (Anticoag Therapy) Sodium Plasma Sodium Potassium Chloride Carbon Dioxide Anion Gap BUN Creatinine Est GFR (Non-Af Amer) BUN/Creatinine Ratio Random Glucose Calcium Calcium Adj for Albumin Total Bilirubin AST ALT Alkaline Phosphatase B-Natriuretic [place] [address] H Total Protein Albumin - Medications Medications: Active Medications Acetylcysteine (Mucomyst 10%) 400 mg IH Q6H PRN PRN Reason: Congestion Stop: 09/25/16 20:03 Last Admin: 09/23/16 06:13 Dose: 400 mg Albuterol Sulfate (Albuterol Sulfate 2.5 Mg/3 Ml) 2.5 mg IH Q6H PRN PRN Reason: Dyspnea Stop: 10/19/16 22:28 Last Admin: 09/23/16 06:11 Dose: 2.5 mg Amiodarone HCl (Cordarone) 200 mg PO DAILY JESUS Stop: 10/20/16 09:01 Last Admin: 09/23/16 10:07 Dose: 200 mg Cholestyramine Resin (Questran Packet) 4 gm PO QID [facility] Stop: 10/21/16 13:01 Last Admin: 09/23/16 10:08 Dose: 4 gm Clopidogrel Bisulfate (Plavix) 75 mg PO DAILY [facility] Stop: 10/20/16 09:01 Last Admin: 09/23/16 10:07 Dose: 75 mg Digoxin (Lanoxin) 0.0625 mg PO DAILY [facility] Stop: 10/20/16 09:01 Last Admin: 09/23/16 10:07 Dose: 0.0625 mg Famotidine (Pepcid) 20 mg PO HS [facility] Stop: 10/19/16 22:46 Last Admin: 09/22/16 20:44 Dose: 20 mg Furosemide 40 mg/ Furosemide (20 mg) 60 mg IV Q8H [facility] Stop: 10/22/16 15:01 Last Admin: 09/23/16 07:47 Dose: 60 mg Levothyroxine Sodium (Synthroid) 125 mcg PO DAILY@0700 JESUS Stop: 10/20/16 07:01 Last Admin: 09/23/16 07:47 Dose: 125 mcg Loratadine (Claritin) 10 mg PO DAILY [facility] Stop: 10/20/16 09:01 Last Admin: 09/23/16 10:07 Dose: 10 mg Metoclopramide HCl (Reglan) 10 mg PO Q6H [facility] Stop: 10/20/16 13:16 Last Admin: 09/23/16 07:48 Dose: 10 mg Metoprolol Tartrate (Lopressor) 25 mg PO BIDPC [facility] Stop: 10/19/16 22:16 Last Admin: 09/23/16 10:07 Dose: 25 mg Albuterol Sulfate 2 (Mg) 2 mg PO TID [facility] Stop: 10/20/16 09:01 Last Admin: 09/23/16 10:06 Dose: 2 mg Ondansetron HCl (Zofran) 4 mg IV Q6H PRN PRN Reason: Nausea And Vomiting Stop: 10/20/16 00:07 Last Admin: 09/20/16 00:35 Dose: 4 mg Rosuvastatin Calcium (Crestor) 10 mg PO HS [facility] Stop: 10/20/16 21:01 Last Admin: 09/22/16 20:44 Dose: 10 mg Sildenafil Citrate (Revatio) 5 mg PO TID [facility] Stop: 10/20/16 09:01 Last Admin: 09/23/16 10:08 Dose: 5 mg Discontinued Medications Albuterol/Ipratropium (Duoneb 2.5-0.5mg/3ml Soln) 3 ml IH ONCE ONE Stop: 09/19/16 17:50 Last Admin: 09/19/16 18:00 Dose: 3 ml Albuterol/Ipratropium (Duoneb 2.5-0.5mg/3ml Soln) 3 ml IH ONCE ONE Stop: 09/21/16 11:48 Last Admin: 09/21/16 12:00 Dose: 3 ml Furosemide (Lasix) 20 mg IV ONCE ONE Stop: 09/19/16 17:50 Last Admin: 09/19/16 17:54 Dose: 20 mg Furosemide 40 mg/ Furosemide (20 mg) 60 mg IV BID [facility] Stop: 10/20/16 09:01 Last Admin: 09/22/16 10:26 Dose: 60 mg Metoprolol Tartrate (Lopressor) 12.5 mg PO BIDPC [facility] Stop: 10/19/16 22:16 Last Admin: 09/19/16 22:47 Dose: 12.5 mg Albuterol Sulfate 2 (Mg) 2 mg PO TID [facility] Stop: 10/20/16 09:01 Last Admin: 09/20/16 10:11 Dose: Not Given Sodium Polystyrene Sulfonate (Sodium Polystyrene Sulfonate) 15 g PO ONCE ONE Stop: 09/22/16 11:36 Last Admin: 09/22/16 13:10 Dose: 15 g Spironolactone (Aldactone) 25 mg PO DAILY [facility] Stop: 10/20/16 09:01 Last Admin: 09/22/16 09:53 Dose: 25 mg - Disposition Disposition: [facility] Condition: Fair Discharge Date: 09/23/16
[2016-09-23 14:53] VITALS: BP 119/70
== END 2016-09-23 18:30 | disposition short-term general hospital (02) | DRG 293 ==
LOC: ER 16:28 → MS 18:24 → OBSVTOIN 09-20 07:30
PROVIDERS: ADMIT Family Medicine; ATTEND Internal Medicine
PROC: 4A033R1 Measurement of Arterial Saturation, Peripheral, Percutaneous Approach (ICD-10-PCS; principal; 2016-09-21)
DX: I50.43 Acute on chronic combined systolic (congestive) and diastolic (congestive) heart failure (principal); R13.12 Dysphagia, oropharyngeal phase; E87.5 Hyperkalemia; K76.1 Chronic passive congestion of liver; R94.5 Abnormal results of liver function studies; I25.10 Atherosclerotic heart disease of native coronary artery without angina pectoris; R62.7 Adult failure to thrive; I48.2 Chronic atrial fibrillation; E78.5 Hyperlipidemia, unspecified; E03.9 Hypothyroidism, unspecified; I27.2 Other secondary pulmonary hypertension; Z79.01 Long term (current) use of anticoagulants; Z95.1 Presence of aortocoronary bypass graft; Z95.2 Presence of prosthetic heart valve
CPT/HCPCS: 36415; 36600; 71020; 76700; 80048; 80053; 80162; 82803; 83880; 84132; 84484; 85007; 85025; 85610; 85730; 87081; 93005; 94640; 96374; 99284; G0378